=== PATIENT | female | born 1955 | race Caucasian/White ===

== ENCOUNTER 2022-03-15 09:50 | Outpatient (CLI) | payer BC, SELFPAY ==
--- NOTE | ~2022-03-15 | CT_ITS ---
EXAMINATION: CT lung screening DATE: 03/15/2022 10:08 INDICATION: Screening TECHNIQUE: Computed tomography (CT) of the chest was performed without intravenous contrast. Addition al 3D reconstructions utilizing coronal maximum intensity projection (MIP) were performed. Automated exposure control and iterative reconstruction technique were employed. The dose-length product was 71 .18 mGy-cm. COMPARISON: None FINDINGS: Mild emphysema. Mild discoid atelectasis in the lingula and right middle lobe. Mild bronchiectatic ch anges with some scattered mucous plugging the bilateral lower lobes. No suspicious pulmonary nodules, pneumonia, pulmonary edema or pleural effusion. Heart size is normal. Atherosclerotic and/or artery calcification. No pericardial effusion. Atherosclerotic calcific changes along the normal caliber tho racic aorta. No pathologically enlarged thoracic lymphadenopathy. 3 mm retrolisthesis L1 on L2 with s evere associated disc height loss . Moderate lower cervical spondylosis and mild spondylosis in the i ntervening thoracic spine. IMPRESSION: 1. Lung-RADS category 1: Negative. Continue annual screening with noncontrast low-dose chest CT in 12 months. Reviewed, dictated and finalized at location A. IMPRESSION: 1. Lung-RADS category 1: Negative. Continue annual screening with noncontrast l ow-dose chest CT in 12 months.
== END 2022-03-15 09:51 | disposition home or self-care (01) ==
PROVIDERS: PCP Family Medicine; Visit Provider Physician Assistant
DX: Z12.2 Encounter for screening for malignant neoplasm of respiratory organs (principal); Z87.891 Personal history of nicotine dependence
CPT/HCPCS: 71271

== ENCOUNTER 2022-10-18 09:39 | Outpatient (CLI) | payer BC, SELFPAY ==
--- NOTE | ~2022-10-18 | XR_ITS ---
Clinical Indication: Chest heaviness, status post Covid infection PA and lateral views of the chest: Comparison: 04/20/2016 Findings: The lungs are clear, without evidence of focal consolidation or pleural effusion. Possible COPD. Cardiomediastinal silhouette is within normal limits. Bones and soft tissues are unremarkable. Impression: Possible COPD pattern. Clear lungs. Reviewed, dictated and finalized at location . PLATFORM SUPERVISOR Impression: Possible COPD pattern. Clear lungs.
== END 2022-10-18 09:40 | disposition home or self-care (01) ==
PROVIDERS: PCP Family Medicine; Visit Provider Physician Assistant Medical
DX: J22 Unspecified acute lower respiratory infection (principal); R91.8 Other nonspecific abnormal finding of lung field
CPT/HCPCS: 71046

== ENCOUNTER 2022-10-22 14:31 | Outpatient (CLI) | payer BC, SELFPAY ==
[2022-10-22 14:48] LABS: Basophils Percent Auto 0.4 % (0.2-1.2); Hematocrit 52.4 % (37.0-47.0); Immature Granulocyte Absolute 0.03 K/mm3 (0.00-0.031); Immature Granulocyte Percent A 0.4 % (0-0.5); Lymphocytes Absolute Auto 0.85 K/mm3 (0.9-3.2); Mean Corpuscular HGB Conc 32.4 g/dl (32-36); Mean Corpuscular Hemoglobin 30.4 pg (26-34); Mean Corpuscular Volume 93.6 fl (80-100); Mean Platelet Volume 9.9 fl (7.4-10.4); Monocytes Absolute Auto 0.2 K/mm3 (0.1-0.6); Monocytes Percent Auto 1.8 % (2.6-8.5); Neutrophils Absolute Auto 7.4 K/mm3 (1.3-6.7); Neutrophils Percent Auto 87.4 % (45.5-73.1); Platelet Count Result 280 k/mm3 (150-375); Red Cell Distribution Width 13.7 % (11.5-14.5); White Blood Count 8.5 K/mm3 (4.5-10.0)
[2022-10-22 14:56] LABS: Anion Gap 5 mmol/L (8-16); Blood Urea Nitrogen 10 mg/dL (7-17); Calcium 9.5 mg/dL (8.4-10.2); Carbon Dioxide 39 mmol/L (22-30); Chloride 89 mmol/L (98-107); Estimated Glomerular Filt Rate > 60; Glucose 128 mg/dL (65-110); Potassium 4.4 mmol/L (3.4-5.0); Sodium 133 mmol/L (137-145)
[2022-10-22 15:10] LABS: D Dimer < 0.27 ug/mL (<0.48)
== END 2022-10-22 14:32 | disposition home or self-care (01) ==
LOC: ANHLAB 14:32
PROVIDERS: PCP Family Medicine; Visit Provider Family Medicine
DX: R53.83 Other fatigue (principal); R09.02 Hypoxemia
CPT/HCPCS: 36415; 80048; 85025; 85380

== ENCOUNTER 2023-03-18 10:23 | Outpatient (CLI) | payer BC, SELFPAY ==
--- NOTE | ~2023-03-18 | CT_ITS ---
CT Scan of the Chest without Contrast: Clinical Indication: Lung cancer screening, smoking history Technique: Contiguous sections were acquired throughout the chest without intravenous contrast. Dose reduction technique was used on this scan by utilizing automated exposure control and iterative recon struction technique. The dose-length product (DLP) was 66.99 mGy-cm. COMPARISON: 03/15/2022 Findings: There is no evidence of any significant mediastinal, hilar or axillary lymphadenopathy. Atherosclerot ic calcifications of the aorta and coronary arteries are present. There is no evidence of pleural or pericardial effusion. The lungs are clear. No pulmonary nodules or infiltrates are noted. Mild emphysema present. Images through the upper abdomen reveal stable small hepatic cysts and stable prominent appearance of left adrenal gland. Impression: Lung RADS 1: Negative. 12 month follow-up CT advised. Mild emphysema. Reviewed, dictated and finalized at [facility]. Impression: Lung RADS 1: Negative. 12 month follow-up CT advised. Mild emphysema.
== END 2023-03-18 10:24 | disposition home or self-care (01) ==
PROVIDERS: PCP Family Medicine; Visit Provider Physician Assistant Medical
DX: Z12.2 Encounter for screening for malignant neoplasm of respiratory organs (principal); Z72.0 Tobacco use
CPT/HCPCS: 71271

== ENCOUNTER 2023-11-05 14:20 | Outpatient (CLI) | payer MEDICARE, OTHER, SELFPAY ==
--- NOTE | ~2023-11-05 | MM_ITS ---
EXAMINATION: MM screening aurea BI w rayshawn HISTORY: Screening mammogram TECHNIQUE: Craniocaudal and mediolateral oblique 3-D tomosynthesis images were obtained and synthetic 2-D images were generated. CAD analysis was submitted and interpreted. COMPARISON: 07/08/2018 diagnostic right mammogram and limited right breast ultrasound examination 06/30/2018 bilateral screening mammogram BREAST PARENCHYMAL COMPOSITION: There are scattered areas of fibroglandular density. FINDINGS: There is no evidence of suspicious mass, calcification, or architectural distortion to sugg est malignancy in either breast. There has been no suspicious interval change. IMPRESSION: 1. No mammographic evidence of malignancy. 2. Recommend routine screening mammography in one year. BI-RADS Category 1: Negative Reviewed, dictated and finalized at location A. RAM CONSULTANT
--- NOTE | ~2023-11-05 | DEXA_ITS ---
Bone Density Report Name: MARY SEVILLA Age: 68 Sex: Female Ethnicity: White Date of : 1955 Indication: postmenopausal; screening for osteoporosis; height loss; asthma or emphysema; Referring Provider: LAURIE LEMON Study: Bone densitometry was performed. Exam Date: November 05, 2023 Accession number: [id number] Bone Density: Region BMD T-score Z-score Classification AP Spine(L2, L3, L4) 1.132 0.5 2.7 Normal Femoral Neck (Left) 0.710 -1.3 0.6 Osteopenia Total Hip (Left) 0.788 -1.3 0.3 Osteopenia Femoral Neck (Right) 0.758 -0.8 1.0 Normal Total Hip (Right) 0.831 -0.9 0.6 Normal Total Hip Mean 0.810 -1.1 0.5 Osteopenia World Health Organization criteria for BMD impression classify patients as: Normal (T-score at or above -1.0), Osteopenia (T-score between -1.0 and -2.5), or Osteoporosis (T-score at or below -2.5). 10-year Fracture Risk(1): Major Osteoporotic Fracture 9.3% Hip Fracture 1.8% Reported Risk Factors: [place] (), Neck BMD=0.710, BMI=28.2, smoking (1) FRAX(R) Version 3.08. Fracture probability calculated for an untreated patient. Fracture probability may be lower if the patient has received treatment. Clinical Information Provided by Patient: Smokes Has the following medical conditions: Asthma or Emphysema Patient maximum height was 67 Menopause Age: 43 No regular weight bearing exercise Does not regularly consume dairy products Drinks caffeinated beverages Onset of menses at age 9 Number of children 4 Impression: The patient has low bone mass, based on the Left Total Hip T-score. The patient has an estimated ten-year risk of hip fracture of 1.8% and an estimated ten-year risk of major fracture of 9.3%, based on the WHO FRAX algorithm. The patient has risk factors, including: smoking. Discussion: BONE DENSITY IS LOW AT ONE OR MORE SKELETAL SITES. This patient's lowest T-score is low at one or more skeletal sites. It meets the World Health Organization's (WHO) criteria for ?low bone mass? (T-score between -1.0 and -2.5). The patient's 10-year risk of fracture as calculated by FRAX is less than the threshold where pharmacological therapy is recommended by the National Osteoporosis Foundation (NOF). However, all treatment decisions require clinical judgment and consideration of individual patient factors, including patient preferences, comorbidities, previous drug use, risk factors not captured in the FRAX model (e.g., frailty, falls, vitamin D deficiency, increased bone turnover, interval significant decline in bone density) and possible under or overestimation of fracture risk by FRAX. The patient should follow a healthful lifestyle (good nutrition with adequate calcium and vitamin D, and appropriate weight-bearing exercise). Follow-Up: Consid
== END 2023-11-05 14:21 | disposition home or self-care (01) ==
LOC: ANHIMG 14:24
PROVIDERS: PCP Family Medicine; Visit Provider Physician Assistant
DX: Z12.31 Encounter for screening mammogram for malignant neoplasm of breast (principal); Z78.0 Asymptomatic menopausal state; M85.852 Other specified disorders of bone density and structure, left thigh
CPT/HCPCS: 77063; 77067; 77080

== ENCOUNTER 2023-11-06 14:58 | Outpatient (CLI) | payer MEDICARE, OTHER, SELFPAY ==
--- NOTE | ~2023-11-06 | XR_ITS ---
EXAMINATION: XR chest 2V DATE: 11/06/2023 15:16 INDICATION: Shortness of breath. Cough. TECHNIQUE: Frontal and lateral views of the chest were obtained. COMPARISON: Chest 2 views 10/18/2022, chest CT 03/18/2023 FINDINGS: There is no pneumonia, pleural effusion, or pneumothorax. The heart size is normal. IMPRESSION: 1. No acute cardiopulmonary disease. Reviewed, dictated and finalized at location E. DING OPERATOR
--- NOTE | 2023-11-06 15:33 | ECG_ITS ---
Measurements Intervals [place] Rate: 93 P: 74 VT: 196 QRS: 107 QRSD: 90 T: 60 QT: 323 QTc: 403 Interpretive Statements SINUS RHYTHM WITH OCCASIONAL ECTOPIC PREMATURE COMPLEXES POSSIBLE RIGHT ATRIAL ENLARGEMENT [0.25mV P WAVE] LEFT ATRIAL ENLARGEMENT [-0.15mV P WAVE IN V1/V2] POSSIBLE RIGHT VENTRICULAR HYPERTROPHY [SOME/ALL OF: PROMINENT R IN V1, LATE TRANSITION, RAD, [place], SSS] POOR R-WAVE PROGRESSION, CANNOT RULE OUT OLD SEPTAL PA NO PREVIOUS ECG AVAILABLE FOR COMPARISON Electronically Signed On 11-06-2023 19:04:00 MEMBER SERVICE SPECIALIST by Matilde Valverde M.D.
[2023-11-06 15:43] LABS: Hematocrit 51.2 % (37.0-47.0); Hemoglobin 16.9 g/dL (12.0-15.0); Mean Corpuscular Hemoglobin 28.8 pg (26-34); Mean Corpuscular Volume 87.4 fl (80-100); Platelet Count Result 212 k/mm3 (150-375); Red Blood Count 5.86 M/mm3 (4.2-5.4); Red Cell Distribution Width 13.6 % (11.5-14.5); White Blood Count 7.8 K/mm3 (4.5-10.0)
[2023-11-06 15:54] LABS: Alanine Aminotransferase 26 U/L (6-35); Albumin Level 4.3 g/dL (3.5-5.1); Alkaline Phosphatase 86 U/L (38-126); Aspartate Amino Transferase 36 U/L (14-36); Bilirubin,Total 0.8 mg/dL (0.2-1.3); Blood Urea Nitrogen 9 mg/dL (7-17); Calcium 9.6 mg/dL (8.4-10.2); Carbon Dioxide > 40 mmol/L (22-30); Chloride 80 mmol/L (98-107); Estimated Glomerular Filt Rate > 60; Glucose 97 mg/dL (65-110); Potassium 3.6 mmol/L (3.4-5.0); Sodium 123 mmol/L (137-145)
[2023-11-06 17:19] LABS: Free T4 Free Thyroxine 1.55 ng/mL (0.78-2.19)
== END 2023-11-06 14:59 | disposition home or self-care (01) ==
LOC: ANHIMG 14:59
PROVIDERS: PCP Family Medicine; Visit Provider Physician Assistant
DX: R53.83 Other fatigue (principal); D64.9 Anemia, unspecified; Z13.1 Encounter for screening for diabetes mellitus; R06.02 Shortness of breath; R60.9 Edema, unspecified
CPT/HCPCS: 36415; 71046; 80053; 84439; 84443; 85027; 93005

== ENCOUNTER 2023-11-22 14:44 | Inpatient (IN) | payer MEDICARE, OTHER, SELFPAY ==
[2023-11-22] VITALS (40 sets, daily range): BP systolic 161–188; BP diastolic 76–96; PULSE 87–109; RESP 13–33; TEMP 36.4; O2SAT 54–100
--- NOTE | ~2023-11-22 | CT_ITS ---
EXAMINATION: CTA chest PE protocol DATE: 11/22/2023 17:46 INDICATION: Shortness of breath. TECHNIQUE: Computed tomography angiography (CTA) of the chest was performed with 100 mL Omnipaque-350 intravenous contrast timed to evaluate the pulmonary arteries. Coronal maximum intensity projection 3D-reconstructions were created by the technologist. Automated exposure control and iterative reconst ruction technique were employed. The dose-length product was 189.81 mGy-cm. COMPARISON: Chest CT 03/18/2023 FINDINGS: There is mild emphysema. There is a 3 mm nodule at left major fissure, likely benign. There is mild scarring at the lung apices. There is mild atelectasis bilaterally. No pleural effusion. Car diomegaly is noted. No pericardial effusion. There are coronary artery calcifications. There is a sma ll sliding hiatal hernia. There are cysts in the liver measuring up to 11 mm. There is no pulmonary e mbolus. There is a supraumbilical ventral hernia containing fat. There is mild thoracic spondylosis a nd severe lumbar spondylosis. IMPRESSION: 1. No pulmonary embolus. 2. Mild emphysema. 3. Small sliding hiatal hernia. Reviewed, dictated and finalized at location E. US ADMINISTRATIVE ASSISTANT
--- NOTE | ~2023-11-22 | XR_ITS ---
EXAMINATION: XR chest 1V portable DATE: 11/22/2023 15:29 INDICATION: Ingested heart failure TECHNIQUE: frontal view of the chest was obtained. COMPARISON: Chest radiograph dated 11/06/2023 FINDINGS: Subtle increased interstitial pattern at the periphery of the lower lung zones consistent with minima l pulmonary edema or atelectasis. No other airspace opacities, pleural effusion or pneumothorax. Printing Sales Representative marsha mild lingular atelectasis/scarring near the apex of the heart. Heart size remains within normal l imits for AP technique. Severe left and moderate right glenohumeral osteoarthritis. IMPRESSION: 1. Minimal pulmonary edema versus atelectasis at the bilateral lung bases. Reviewed, dictated and finalized at location A. OPRACTIC PRACTICE MANAGER
--- NOTE | ~2023-11-22 | XR_ITS ---
XR chest 1V portable 11/24/2023 11:37 Indication: COPD. Respiratory failure Procedure: AP portable chest Comparison: 11/22/2023 Findings: Borderline heart size. Bilateral perihilar interstitial infiltrates. No significant effusio n. No pneumothorax. Advanced degenerative changes of the shoulders. Impression: 1: Bilateral perihilar interstitial infiltrates may represent edema or pneumonia. Reviewed, dictated and finalized at location A. ONAL SALES ASSOCIATE Impression: 1: Bilateral perihilar interstitial infiltrates may represent edema or pneumoni a.
--- NOTE | 2023-11-22 14:52 | PC.NURSE ---
Pt has PMH of COPD and does not wear home O2. Pt arrives 75% on room air and placed on 2 L NC O2, pulse OX 93%
--- NOTE | 2023-11-22 14:54 | ECG_ITS ---
Measurements Intervals [place] Rate: 86 P: 64 IN: 195 QRS: 151 QRSD: 82 T: 57 QT: 343 QTc: 412 Interpretive Statements SINUS RHYTHM LEFT ATRIAL ENLARGEMENT [-0.15mV P WAVE IN V1/V2] POSSIBLE RIGHT VENTRICULAR HYPERTROPHY [SOME/ALL OF: PROMINENT R IN V1, LATE TRANSITION, RAD, [place], SSS] ANTEROSEPTAL MYOCARDIAL INFARCTION , OF INDETERMINATE AGE [40+ ms Q WAVE IN V1-V4] ABNORMAL ECG COMPARED TO ECG 11/06/2023 15:42:48 MYOCARDIAL INFARCT FINDING NOW PRESENT Electronically Signed On 11-23-2023 14:35:02 TIRE VULCANIZER by Santana Carpenter M.D.
[2023-11-22 15:11] LABS: Basophils Absolute Auto 0.1 K/mm3 (0.0-0.1); Basophils Percent Auto 0.7 % (0.2-1.2); Eosinophils Absolute Auto 0.3 K/mm3 (0-0.3); Eosinophils Percent Auto 4.1 % (0-4.4); Hematocrit 50.3 % (37.0-47.0); Hemoglobin 15.9 g/dL (12.0-15.0); Immature Granulocyte Absolute 0.02 K/mm3 (0.00-0.031); Immature Granulocyte Percent A 0.3 % (0-0.5); Lymphocytes Absolute Auto 1.43 K/mm3 (0.9-3.2); Lymphocytes Percent Auto 18.9 % (18.3-44.2); Mean Corpuscular HGB Conc 31.6 g/dl (32-36); Mean Corpuscular Hemoglobin 27.6 pg (26-34); Mean Corpuscular Volume 87.2 fl (80-100); Mean Platelet Volume 9.7 fl (7.4-10.4); Monocytes Absolute Auto 0.8 K/mm3 (0.1-0.6); Platelet Count Result 216 k/mm3 (150-375); Red Blood Count 5.77 M/mm3 (4.2-5.4); Red Cell Distribution Width 15.5 % (11.5-14.5); White Blood Count 7.6 K/mm3 (4.5-10.0)
[2023-11-22 15:18] LABS: Prothrombin Time 13.4 Seconds (11.1-14.7)
[2023-11-22 15:19] LABS: Partial Thromboplastin Time 27.2 SECONDS (22.3-36.8)
[2023-11-22 15:22] LABS: Alanine Aminotransferase 23 U/L (6-35); Albumin Level 4.1 g/dL (3.5-5.1); Alkaline Phosphatase 85 U/L (38-126); Anion Gap 3 mmol/L (8-16); Aspartate Amino Transferase 40 U/L (14-36); Bilirubin,Total 0.9 mg/dL (0.2-1.3); Blood Urea Nitrogen 7 mg/dL (7-17); Calcium 9.5 mg/dL (8.4-10.2); Carbon Dioxide 39 mmol/L (22-30); Chloride 87 mmol/L (98-107); Estimated CRCL calculation 80 ml/min; Estimated Glomerular Filt Rate > 60; Glucose 99 mg/dL (65-110); Potassium 3.6 mmol/L (3.4-5.0); Sodium 129 mmol/L (137-145)
[2023-11-22 15:34] LABS: NT Pro B Type Natriuretic Pept 371 pg/mL (19.9-100); Troponin I < 0.012 ng/mL (0.000-0.034)
[2023-11-22 15:46] LABS: Influenza A QL RT-PCR Negative (Negative); Influenza B QL RT-PCR Negative (Negative); RSV RNA, RT-PCR Negative (Negative); SARS-CoV-2 RNA PCR Negative (Negative)
--- NOTE | 2023-11-22 16:55 | PC.NURSE ---
Pt was taken off of her O2 to be wheeled to the restroom via wheelchair (reported to RN that she is normally only 88-94% on RA at home with COPD). Pt was only standing to get in and out of wheelchair, did not walk. When patient got back in bed and was reconnected to the monitor, SpO2 was 54% with good pleth. Supplemental oxygen temporarily increased to 4L NC. Pt had increased respiratory rate of 26/min, however did not appear labored and was looking for her chapstick seemingly unconcerned about her breathing. Pt instructed to take deep breaths through her nose (NC) and SpO2 gradually increased back up to 95%. Pt was able to speak full sentences during incident. Pt reports her SpO2 has been dropping significantly at home, and that she always gets very winded when she climbs into bed, and also has been falling asleep while talking lately. States that's why my doctor was setting me up with a steel layout worker . made aware.
--- NOTE | 2023-11-22 18:02 | ED.SOB ---
HPI - SOB/Dyspnea General Chief Complaint: Shortness of Breath/Dyspnea Stated Complaint: sob Time Seen by Provider: 11/22/23 15:09 History of Present Illness HPI Narrative: Patient is a 68-year-old female with a history of COPD, hypertension, hyperlipidemia presenting with hypoxia. Patient states that for the last several weeks she has been increasingly short of breath. States that she has a pulse ox at home and she has been checking it randomly. States that her saturations have been dropping to the 70s. She went to see her PCP today who advised that she come in for evaluation as she was saturating 76% on room air. States that she does have mild bilateral lower extremity swelling that is new for her. She denies any chest pain or lightheadedness. Reports a chronic unchanged cough. No fevers or chills, abdominal pain, nausea vomiting, dysuria, diarrhea. States that she is down to about 10 cigarettes per day. Related Data Home Medications Medication Instructions Recorded Confirmed amlodipine 2.5 mg tablet 2.5 mg PO QHS 11/22/23 11/22/23 atorvastatin 10 mg tablet 10 mg PO QHS 11/22/23 11/22/23 fluticasone 500 mcg-salmeterol 50 1 inh inhalation BID 11/22/23 11/22/23 mcg/dose blistr powdr for inhalation (Advair Diskus) guaifenesin 600 mg tablet, 600 mg PO BID 11/22/23 11/22/23 extended release 12 hr (Mucinex) hydrochlorothiazide 25 mg tablet 25 mg PO QAM 11/22/23 11/22/23 losartan 100 mg tablet 100 mg PO QHS 11/22/23 11/22/23 montelukast 10 mg tablet 10 mg PO QAM 11/22/23 11/22/23 naproxen sodium 220 mg tablet 220 mg PO BID PRN Pain 11/22/23 11/22/23 potassium chloride 10 mEq 10 meq PO QAM 11/22/23 11/22/23 capsule,extended release ropinirole 0.25 mg tablet 0.25 mg PO QHS 11/22/23 11/22/23 Allergies Allergy/AdvReac Type Severity Reaction Status Date / Time ciprofloxacin Allergy Mild NAUSEA Verified 11/22/23 14:01 Review of Systems Review of Systems: All systems reviewed & are unremarkable except as noted in HPI and below PMFSH Past Medical History Medical History Allergic rhinitis Chronic obstructive pulmonary disease DDD (degenerative disc disease), cervical Depression Essential hypertension Mixed hyperlipidemia Normal colonoscopy Osteopenia Tobacco abuse Vitamin B12 deficiency Vitamin D deficiency Surgical History Surgical History History of bladder surgery History of dilatation and curettage Family History Family History Other Family history of coronary artery disease Social History Social History Smoking packs per day: 0.5 Smoking cigarettes per day: 10.0 Years smoked: 50 Smoking pack-years: 25.00 Smoking status: Current every day smoker Tobacco type: cigarettes Second hand tobacco smoke exposure: No Alcohol intake: never Substance use: never Substance use type: does not use Do You Feel Safe in your Home?: Yes Lack of Transportation: No Lack of Food: Never True Current Housing: I Have Housing Concerned About Future Housing: No Difficulty Paying Gas/Electric Bills: No Difficulty Paying for Meds: No Currently Unemployed: No Education: Master's Degree or Higher Difficulty w/ Childcare or Family Care: No Living arrangements: with family Occupation/Education: occupation 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 EYES: PERRLA and EOMI. ENT: Grossly unremarkable NECK: Supple. CHEST: On 4 L nasal cannula, diminished breath sounds bilaterally, do not appreciate any wheezing or crackles, no respiratory distress. HEART: Regular rate and rhythm ABDOMEN:
[2023-11-22 18:44] LABS: Base Excess ABG 9.1 mEq/l (+/-2.0); Carboxyhemoglobin 9.1 % THb (0-2.0); Fractional Inspired Oxygen 28 %; Methemoglobin ABG 0.3 %THb (0-1.5); Oxygen Content ABG 18.7 %vol (16.0-22.0); Oxygen Saturation ABG 87.9 % (95.0-100.0); PO2 ABG 60.3 mmHg (80.0-100.0); PO2 FiO2 Ratio Arterial Blood 2.15 %; Reduced Hemoglobin 8.4 %THb (0-5.0); Total Hemoglobin 16.2 g/dL (12.0-18.0)
[2023-11-22] MEDS: ALBUTEROL SULFATE NEB 2.5 MG/3 ML INH 10 MG INHALATION (18:48)
[2023-11-22] MEDS: IPRATROPIUM BR 0.02% INH SOLN 0.5 MG/2.5 ML VIAL INHALATION ×2 (18:48→20:45)
--- NOTE | 2023-11-22 19:00 | PC.NURSE ---
Bedside RN report given by Radha Martínez RN. Pt a+o x 4, no distress noted. Pt has no current needs.
[2023-11-22] MEDS: methylPREDNISolone SOD SUCC 125 MG VIAL IV PUSH (19:04)
[2023-11-22] MEDS: SODIUM CHLORIDE 0.9% IV 1,000 ML 999 ML IV CONT (19:04)
[2023-11-22 19:10] LABS: PCO2 ABG 77.4 mmHg (35.0-45.0)
[2023-11-22 19:11] LABS: Device NASAL CANNULA; Oxyhemoglobin 82.2 % THb (90.0-100.0); Site Drawn RIGHT RADIAL
[2023-11-22 20:03] LABS: Troponin I < 0.012 ng/mL (0.000-0.034)
--- NOTE | 2023-11-22 20:34 | PM.IMHP ---
H&P: HPI History of Present Illness Date/Time: 11/22/23 20:34 Chief Complaint: SOB Narrative: A 68-year-old female with past medical history significant for COPD/asthma, hypertension, generalized anxiety disorder. Patient presents to the emergency room due to worsening shortness of breath for the last few days or so has been a spot checking oxygen at home and he has been in the 70's made an appointment to go see her primary care physician and on room air she was found to have an oxygen saturation at 76% was sent over to the emergency room for further evaluation. Here in emergency room was found to have an oxygen saturation in the 70s% as well she was placed on supplemental oxygen by nasal cannula 4 L, was ruled out for acute pulmonary embolism with a negative CT angiogram of the chest. Admitted for further evaluation management and treatment. EXAMINATION: XR chest 1V portable DATE: 11/22/2023 15:29 INDICATION: Ingested heart failure TECHNIQUE: frontal view of the chest was obtained. COMPARISON: Chest radiograph dated 11/06/2023 FINDINGS: Subtle increased interstitial pattern at the periphery of the lower lung zones consistent with minimal pulmonary edema or atelectasis. No other airspace opacities, pleural effusion or pneumothorax. Chronic mild lingular atelectasis/scarring near the apex of the heart. Heart size remains within normal limits for AP technique. Severe left and moderate right glenohumeral osteoarthritis. IMPRESSION: 1. Minimal pulmonary edema versus atelectasis at the bilateral lung bases. EXAMINATION: CTA chest PE protocol DATE: 11/22/2023 17:46 INDICATION: Shortness of breath. TECHNIQUE: Computed tomography angiography (CTA) of the chest was performed with 100 mL Omnipaque-350 intravenous contrast timed to evaluate the pulmonary arteries. Coronal maximum intensity projection 3D-reconstructions were created by the technologist. Automated exposure control and iterative reconstruction technique were employed. The dose-length product was 189.81 mGy-cm. COMPARISON: Chest CT 03/18/2023 FINDINGS: There is mild emphysema. There is a 3 mm nodule at left major fissure, likely benign. There is mild scarring at the lung apices. There is mild atelectasis bilaterally. No pleural effusion. Cardiomegaly is noted. No pericardial effusion. There are coronary artery calcifications. There is a small sliding hiatal hernia. There are cysts in the liver measuring up to 11 mm. There is no pulmonary embolus. There is a supraumbilical ventral hernia containing fat. There is mild thoracic spondylosis and severe lumbar spondylosis. IMPRESSION: 1. No pulmonary embolus. 2. Mild emphysema. 3. Small sliding hiatal hernia. Review of Systems Review of Systems: SOB, WHEEZING, PRODUCTIVE COUGH, FATIGUE All systems reviewed & are unremarkable except as noted in HPI and below PMFSH Past Medical History Medical History Allergic rhinitis Chronic obstructive pulmonary disease DDD (degenerative disc disease), cervical Depression Essential hypertension Mixed hyperlipidemia Normal colonoscopy Osteopenia Tobacco abuse Vitamin B12 deficiency Vitamin D deficiency Surgical History Surgical History History of bladder surgery History of dilatation and curettage Family History Family History Other Family history of coronary artery disease Social History Social History Smoking packs per day: 0.5 Smoking cigarettes per day: 10.0 Years smoked: 50 Smoking pack-years: 25.00 Smoking status: Current every day smoker Tobacco type: cigarettes Second hand tobacco smoke exposure: No Alcohol intake: never Substance use: never Substance use type: does not use Do You Feel Safe in your
[2023-11-22] MEDS: ALBUTEROL SULFATE NEB 2.5 MG/3 ML INH INHALATION (20:44)
--- NOTE | 2023-11-22 21:13 | PC.NURSE ---
at time of transfer pt does have ns infusing to gravity. erp aware .
--- NOTE | 2023-11-22 22:31 | ADMGEN ---
This patient, Clau Shepard, was admitted to Medical Room 341-01. Patient/family oriented to hospital policies and general routines including ID bracelet, bed and alarms, visiting hours, pain management, procedures, bathroom and other care routines, personal items, smoking policy, room service/diet, and visiting hours. Information on how to activate the Rapid Response Team has been discussed. Patient/Family are encouraged to report perceived risks to care and to ask questions if they do not understand what they are told or what they should do.
[2023-11-22 23:32] LABS: Troponin I 0.023 ng/mL (0.000-0.034)
[2023-11-22] MEDS: methylPREDNISolone SOD SUCC 125 MG VIAL 60 MG IV PUSH (23:52)
[2023-11-23] VITALS (24 sets, daily range): BP systolic 131–145; BP diastolic 61–97; PULSE 72–116; RESP 16–32; TEMP 36.8–37.1; O2SAT 90–97; BMI 25.3
--- NOTE | 2023-11-23 | ECHO_ITS ---
Patient Info Name: Clau Shepard Age: 68 years : 1955 Gender: Female Ht: 65 in Wt: 152 lbs BSA: 1.79 m2 HR: 100 bpm BP: 140 / 70 mmHg Heart Rhythm: Sinus Rhythm, Tachycardia Technical Quality: Fair Exam Date: 11/23/2023 2:20 PM Exam Location: Echo Lab Exam Room: 200 Patient Status: Inpatient Admit Date: 11/22/2023 Staff Ordering Physician: Jenifer Gaytan APRN Kerrick Kleaner Operator: Kassy Ortega RDCS Attending Provider: Scarlett Cordova MD Referring Physician: Lucila DSOUZA; Exam Type: CA echo dop color flow w con Study Info Indications - hypoxia copd sob htn edema Complete two-dimensional, color flow and Doppler transthoracic echocardiogram is performed with contrast to opacify the left ventricle and to improve the deliniation of the left ventricle endocardial borders. Contrast/Agitated Saline Contrast/Ag. Saline: Definity Amount: 2.00 ml Administered By: Kassy Ortega [facility] Existing IV Access: Yes IV Access Condition: patent with no signs of infiltration Summary 1. Technically difficult study with limited views. Definity contrast administered. 2. Left ventricular chamber dimension is normal. 3. Left ventricular systolic function is hyperdynamic, estimated at >70%. 4. There is mildly increased left ventricular wall thickness. 5. The left ventricular diastolic function is grade I diastolic dysfunction. 6. Right atrial chamber dimension is moderately enlarged. 7. The aortic valve is trileaflet. 8. There is mild aortic valve calcification. There is a focal, fixed calcified echodensity measuring 0.5 x 0.5 cm seen in the long-axis view and short axis views which appears to be consistent with commissural calcification. While there is no clear mobile component less likely vegetation, unable to further characterize. Clinical correlation advised. May consider WEN if clinically indicated. 9. There is no aortic valve stenosis. 10. There is no aortic valve regurgitation. 11. There is trace mitral valve regurgitation. 12. The mitral valve annulus is moderately calcified. 13. There is trace tricuspid valve regurgitation. 14. Mild pulmonary hypertension, estimated pulmonary arterial systolic pressure is 43 mmHg. Left Ventricle Left ventricular chamber dimension is normal. Left ventricular systolic function is hyperdynamic, estimated at >70%. There is mildly increased left ventricular wall thickness. The left ventricular diastolic function is grade I diastolic dysfunction. Technically difficult study with limited views. Definity contrast administered. Right Ventricle Right ventricular chamber dimension is normal. Right ventricular systolic function is normal. Left Atria Left atrial chamber dimension is normal. Right Atria Right atrial chamber dimension is moderately enlarged. Aortic Valve The aortic valve is trileaflet. There is no aortic valve stenosis. There is no aortic valve regurgitation. There is mild aortic valve calcification. There is a focal, fixed calcified echodensity measuring 0.5 x 0.5 cm seen in the long-axis view and short axis views which appears to be consistent with commissural calcification. While there is no clear mobile component less likely vegetation, unable to further characterize. Clinical correlation advised. May consider WEN if clinically indicated. Pulmonic Valve The pulmonic valve is not well visualized. Mitral Valve The mitral valve has thickened leaflets. There is trace mitral valve regurgitation. The mitral valve annulus is moderately calcified. Tricuspid Valve The tric
[2023-11-23 02:04] LABS: Troponin I < 0.012 ng/mL (0.000-0.034)
[2023-11-23] MEDS: ALBUTEROL SULFATE NEB 2.5 MG/3 ML INH INHALATION ×2 (02:32→07:42)
[2023-11-23] MEDS: IPRATROPIUM BR 0.02% INH SOLN 0.5 MG/2.5 ML VIAL INHALATION ×2 (02:32→07:42)
[2023-11-23] MEDS: methylPREDNISolone SOD SUCC 125 MG VIAL 60 MG IV PUSH ×3 (06:23→21:51)
--- NOTE | 2023-11-23 07:27 | P.PNIM_ITS ---
Progress Note: A&P Assessment and Plan (1) Acute respiratory failure with hypoxia and hypercapnia: Code(s): J96.01 - Acute respiratory failure with hypoxia; J96.02 - Acute respiratory failure with hypercapnia Status: Acute Assessment and Plan: 11/23/2023: * Likely secondary to COPD exacerbation * Patient presented with an SpO2 of 73-75% on room air, respiratory rate was 26, ABG shown respiratory acidosis with a pCO2 of 77.4, PO2 of 60.3 on 2 L nasal cannula with an oxyhemoglobin of 82.2. * Currently 3.5 L nasal cannula * Repeat ABG this morning showing worsening acidosis with a pH of 7.298, pCO2 77.9, PO2 58.8, bicarb 37.3, O2 saturation 86.5 on 3.5 L. oxy hemoglobin 86.7. * Will start BiPAP 10/5 with a backup rate of 12 and 50%, she will need this continuously until her acidosis corrects * Will transfer to the IMU for continuous BiPAP * Wean O2 to keep sat greater than 92% * Chest x-ray showed minimal pulmonary edema versus atelectasis at the bilateral lung bases * CTA of the chest was negative for PE, showed mild emphysema and a small sliding hiatal hernia * Patient was given a DuoNeb, 1 L normal saline, and 125 mg IV push Solu-Medrol while in the ED * Continue DuoNebs * Continue Solu-Medrol 60 mg IV push change to q.8 hours * Continue Mucinex and singular * Continue cardiac monitoring * Respiratory panel negative for influenza a and B, RSV, and COVID * White blood cell count 7.6, proBNP was 371, troponin x4 flat * Patient has 1+ pitting bilateral lower extremity edema, will obtain an echo today as she has not had 1 in our system to review. * Will obtain echocardiogram today (2) Chronic obstructive pulmonary disease: Qualifiers: COPD type: unspecified COPD Qualified Code(s): J44.9 - Chronic obstructive pulmonary disease, unspecified Code(s): J44.9 - Chronic obstructive pulmonary disease, unspecified Status: Acute Assessment and Plan: * COPD exacerbation * Does not use home oxygen, CPAP or BiPAP * Has reported confusion and fatigue home along with shortness of breath * Normally on Advair and albuterol inhalers at home, she also has a nebulizer with neb treatments as needed * She continues on Singulair and guaifenesin at home as well * See above plan of care for additional workup (3) Essential hypertension: Code(s): I10 - Essential (primary) hypertension Status: Acute Assessment and Plan: 11/23/2023: * Blood pressure ranging 131/61 to 145/70 * Amlodipine, losartan and hydrochlorothiazide continued (4) Mixed hyperlipidemia: Code(s): E78.2 - Mixed hyperlipidemia Status: Acute Assessment and Plan: 11/23/2023: * Continue atorvastatin (5) Depression: Qualifiers: Active/Remission status: currently active Depression Type: major depressive disorder Major depression episode severity: mild Major depression recurrence: single episode Qualified Code(s): F32.0 - Major depressive disorder, single episode, mild Code(s): F32.9 - Major depressive disorder, single episode, unspecified Status: Acute Assessment and Plan: 11/23/2023: * Continue Wellbutrin (6) Restless legs: Code(s): G25.81 - Restless legs syndrome Status: Acute Assessment and Plan: 11/23/2023: * Continue Requip (7) Tobacco abuse: Code(s): Z72.0 - Tobacco use Status: Acute Assessment and Plan: 11/23/2023: * Current everyday smoker, half ppd 50 years * Patient states that she has been trying to cut back on her smoking * Nicotine patch ordered p.r.n. Time
--- NOTE | 2023-11-23 07:27 | PM.IMPN ---
Progress Note: A&P Assessment and Plan (1) Acute respiratory failure with hypoxia and hypercapnia: Code(s): J96.01 - Acute respiratory failure with hypoxia; J96.02 - Acute respiratory failure with hypercapnia Status: Acute Assessment and Plan: 11/23/2023: Likely secondary to COPD exacerbation Patient presented with an SpO2 of 73-75% on room air, respiratory rate was 26, ABG shown respiratory acidosis with a pCO2 of 77.4, PO2 of 60.3 on 2 L nasal cannula with an oxyhemoglobin of 82.2. Currently 3.5 L nasal cannula Repeat ABG this morning showing worsening acidosis with a pH of 7.298, pCO2 77.9, PO2 58.8, bicarb 37.3, O2 saturation 86.5 on 3.5 L. oxy hemoglobin 86.7. Will start BiPAP 10/5 with a backup rate of 12 and 50%, she will need this continuously until her acidosis corrects Will transfer to the IMU for continuous BiPAP Wean O2 to keep sat greater than 92% Chest x-ray showed minimal pulmonary edema versus atelectasis at the bilateral lung bases CTA of the chest was negative for PE, showed mild emphysema and a small sliding hiatal hernia Patient was given a DuoNeb, 1 L normal saline, and 125 mg IV push Solu-Medrol while in the ED Continue DuoNebs Continue Solu-Medrol 60 mg IV push change to q.8 hours Continue Mucinex and singular Continue cardiac monitoring Respiratory panel negative for influenza a and B, RSV, and COVID White blood cell count 7.6, proBNP was 371, troponin x4 flat Patient has 1+ pitting bilateral lower extremity edema, will obtain an echo today as she has not had 1 in our system to review. Will obtain echocardiogram today (2) Chronic obstructive pulmonary disease: Qualifiers: COPD type: unspecified COPD Qualified Code(s): J44.9 - Chronic obstructive pulmonary disease, unspecified Code(s): J44.9 - Chronic obstructive pulmonary disease, unspecified Status: Acute Assessment and Plan: COPD exacerbation Does not use home oxygen, CPAP or BiPAP Has reported confusion and fatigue home along with shortness of breath Normally on Advair and albuterol inhalers at home, she also has a nebulizer with neb treatments as needed She continues on Singulair and guaifenesin at home as well See above plan of care for additional workup (3) Essential hypertension: Code(s): I10 - Essential (primary) hypertension Status: Acute Assessment and Plan: 11/23/2023: Blood pressure ranging 131/61 to 145/70 Amlodipine, losartan and hydrochlorothiazide continued (4) Mixed hyperlipidemia: Code(s): E78.2 - Mixed hyperlipidemia Status: Acute Assessment and Plan: 11/23/2023: Continue atorvastatin (5) Depression: Qualifiers: Active/Remission status: currently active Depression Type: major depressive disorder Major depression episode severity: mild Major depression recurrence: single episode Qualified Code(s): F32.0 - Major depressive disorder, single episode, mild Code(s): F32.9 - Major depressive disorder, single episode, unspecified Status: Acute Assessment and Plan: 11/23/2023: Continue Wellbutrin (6) Restless legs: Code(s): G25.81 - Restless legs syndrome Status: Acute Assessment and Plan: 11/23/2023: Continue Requip (7) Tobacco abuse: Code(s): Z72.0 - Tobacco use Status: Acute Assessment and Plan: 11/23/2023: Current everyday smoker, half ppd 50 years Patient states that she has been trying to cut back on her smoking Nicotine patch ordered p.r.n. Time Spent With Patient Time with patient: Greater than 35 minutes Subjective Date/time seen: 11/23/23 07:27 Interval history: This is a 68-year-old female with a significant past medical history of COPD, depression, hypertension, hyperlipidemia, osteopenia, vitamin B12 deficiency, vitamin-D deficiency, half pack per day smoker times 50 years who presented to hospital on 11/22/2023 with complaints of jason
[2023-11-23 08:02] LABS: Hematocrit 52.1 % (37.0-47.0); Hemoglobin 15.7 g/dL (12.0-15.0); Immature Granulocyte Absolute 0.01 K/mm3 (0.00-0.031); Immature Granulocyte Percent A 0.2 % (0-0.5); Lymphocytes Absolute Auto 0.21 K/mm3 (0.9-3.2); Mean Corpuscular HGB Conc 30.1 g/dl (32-36); Mean Corpuscular Hemoglobin 27.1 pg (26-34); Mean Platelet Volume 9.5 fl (7.4-10.4); Neutrophils Absolute Auto 3.9 K/mm3 (1.3-6.7); Neutrophils Percent Auto 93.8 % (45.5-73.1); Platelet Count Result 191 k/mm3 (150-375); Red Blood Count 5.79 M/mm3 (4.2-5.4); Red Cell Distribution Width 15.1 % (11.5-14.5); White Blood Count 4.2 K/mm3 (4.5-10.0)
[2023-11-23 08:16] LABS: Alanine Aminotransferase 25 U/L (6-35); Albumin Level 3.9 g/dL (3.5-5.1); Alkaline Phosphatase 80 U/L (38-126); Anion Gap 6 mmol/L (8-16); Aspartate Amino Transferase 26 U/L (14-36); Bilirubin,Total 0.6 mg/dL (0.2-1.3); Blood Urea Nitrogen 8 mg/dL (7-17); Calcium 9.2 mg/dL (8.4-10.2); Carbon Dioxide 37 mmol/L (22-30); Chloride 88 mmol/L (98-107); Estimated CRCL calculation 79 ml/min; Estimated Glomerular Filt Rate > 60; Glucose 189 mg/dL (65-110); Sodium 131 mmol/L (137-145)
[2023-11-23 09:05] LABS: Alveolar/Arterial O2 Gradient 92.9 mmHg; Base Excess ABG 7.3 mEq/l (+/-2.0); Fractional Inspired Oxygen 34 %; HCO3 ABG 37.3 mEq/l (22.0-26.0); Oxygen Content ABG 19.5 %vol (16.0-22.0); PO2 ABG 58.8 mmHg (80.0-100.0); PO2 FiO2 Ratio Arterial Blood 1.73 %
[2023-11-23] MEDS: NICOTINE (*PBKC) 21 MG PATCH 1 PATCH TRANSDERM (09:09)
[2023-11-23] MEDS: buPROPion HCL XL (24 HR) 150 MG TABCR PO (09:10)
[2023-11-23] MEDS: MONTELUKAST SODIUM 10 MG TABLET PO (09:10)
[2023-11-23] MEDS: POTASSIUM CHLORIDE 10 MEQ ER TABLET PO (09:10)
[2023-11-23 09:11] LABS: pH ABG 7.298 (7.350-7.450)
[2023-11-23 09:12] LABS: PCO2 ABG 77.9 mmHg (35.0-45.0)
[2023-11-23 09:13] LABS: Oxygen Saturation ABG 86.5 % (95.0-100.0)
[2023-11-23 09:15] LABS: Device NASAL CANNULA; Liters per Minute 3.5 LPM; Modified Allen's Test Pass; Oxyhemoglobin 86.7 % THb (90.0-100.0); Site Drawn RIGHT RADIAL
[2023-11-23] MEDS: hydroCHLOROthiazide 25 MG TABLET PO (09:21)
[2023-11-23] MEDS: guaiFENesin 12 HR 600 MG TABCR PO ×2 (09:21→21:48)
[2023-11-23] MEDS: ENOXAPARIN 40 MG/0.4 ML SYRINGE SUB-Q (09:21)
[2023-11-23] MEDS: IPRATROPIUM 0.5 MG/ALBUTEROL SULFATE 2.5 MG AMPUL.NEB 3 ML INHALATION ×2 (13:35→19:50)
[2023-11-23] MEDS: PERFLUTREN LIPID MICROSPHERES 1.5 ML VIAL DILUTED TO 10 ML TOTAL VOLUME IV PUSH (14:15)
--- NOTE | 2023-11-23 14:54 | IVDEFINITY ---
Prior to administration of IV Definity the patient was educated on the risks and benefits of the imaging enhancing agent including potential adverse side effects. The patient verbalized understanding. Allergies were verified. No exclusion criteria were identified and at least one of the following inclusion criteria were met: 1) physician request, 2) patient technically difficult to image (per the [place] [employer] guidelines of two or more segments not discernable within the apical view), or 3) questionable left ventricular function. ?
--- NOTE | 2023-11-23 16:15 | PC.NURSE ---
This patient, Clau Shepard, was received from medical floor on 11/23/23 at 1155. Patient/family oriented to unit policies and routines
[2023-11-23 16:23] LABS: Alveolar/Arterial O2 Gradient 202.7 mmHg; Base Excess ABG 11.3 mEq/l (+/-2.0); Carboxyhemoglobin 1.8 % THb (0-2.0); Fractional Inspired Oxygen 50 %; HCO3 ABG 40.9 mEq/l (22.0-26.0); Methemoglobin ABG 0.5 %THb (0-1.5); Oxygen Content ABG 19.9 %vol (16.0-22.0); Oxygen Saturation ABG 91.7 % (95.0-100.0); Oxyhemoglobin 91.3 % THb (90.0-100.0); PO2 ABG 67.9 mmHg (80.0-100.0); PO2 FiO2 Ratio Arterial Blood 1.36 %; Reduced Hemoglobin 6.4 %THb (0-5.0); Total Hemoglobin 15.5 g/dL (12.0-18.0); pH ABG 7.346 (7.350-7.450)
[2023-11-23 16:26] LABS: Modified Allen's Test Pass; PCO2 ABG 76.4 mmHg (35.0-45.0); Site Drawn RIGHT RADIAL
[2023-11-23 16:27] LABS: Device NON-INVASIVE VENT
[2023-11-23 16:28] LABS: Non-Invasive Expiratory Pressure 5 CMH2O; Non-Invasive Inspiratory Pressure 10 CMH2O; Non-Invasive Vent Rate 12 /MIN
[2023-11-23] MEDS: LOSARTAN POTASSIUM 100 MG TABLET PO (21:47)
[2023-11-23] MEDS: ATORVASTATIN 10 MG TABLET PO (21:47)
[2023-11-23] MEDS: amLODIPine BESYLATE 2.5 MG TABLET PO (21:48)
[2023-11-23] MEDS: rOPINIRole HCL 0.25 MG TABLET PO (21:48)
[2023-11-23] MEDS: NAPROXEN SODIUM 220 MG TABLET PO (21:55)
[2023-11-24] VITALS (34 sets, daily range): BP systolic 135–167; BP diastolic 64–78; PULSE 90–112; RESP 14–27; TEMP 36.1–36.8; O2SAT 90–100
[2023-11-24] MEDS: IPRATROPIUM 0.5 MG/ALBUTEROL SULFATE 2.5 MG AMPUL.NEB 3 ML INHALATION ×4 (01:02→21:30)
[2023-11-24 05:27] LABS: Fractional Inspired Oxygen 50 %
[2023-11-24 05:30] LABS: PCO2 ABG 78.2 mmHg (35.0-45.0); pH ABG 7.298 (7.350-7.450)
[2023-11-24 05:31] LABS: Base Excess ABG 7.5 mEq/l (+/-2.0); HCO3 ABG 37.4 mEq/l (22.0-26.0); Oxygen Content ABG 20.1 %vol (16.0-22.0); Oxygen Saturation ABG 93.1 % (95.0-100.0); Oxyhemoglobin 92.7 % THb (90.0-100.0); PO2 ABG 75.5 mmHg (80.0-100.0); PO2 FiO2 Ratio Arterial Blood 1.51 %; Site Drawn RIGHT RADIAL; Total Hemoglobin 15.4 g/dL (12.0-18.0)
[2023-11-24 05:32] LABS: Device BIPAP; Expiratory Pressure 5 cmH2O; Inspiratory Pressure 10 cmH2O; Modified Allen's Test Pass
[2023-11-24] MEDS: methylPREDNISolone SOD SUCC 125 MG VIAL 60 MG IV PUSH (06:19)
--- NOTE | 2023-11-24 07:24 | P.PNIM_ITS ---
Progress Note: A&P Assessment and Plan (1) Acute respiratory failure with hypoxia and hypercapnia: Code(s): J96.01 - Acute respiratory failure with hypoxia; J96.02 - Acute respiratory failure with hypercapnia Status: Acute Assessment and Plan: 11/23/2023: * Likely secondary to COPD exacerbation * Patient presented with an SpO2 of 73-75% on room air, respiratory rate was 26, ABG shown respiratory acidosis with a pCO2 of 77.4, PO2 of 60.3 on 2 L nasal cannula with an oxyhemoglobin of 82.2. * Currently 3.5 L nasal cannula * Repeat ABG this morning showing worsening acidosis with a pH of 7.298, pCO2 77.9, PO2 58.8, bicarb 37.3, O2 saturation 86.5 on 3.5 L. oxy hemoglobin 86.7. * Will start BiPAP 10/5 with a backup rate of 12 and 50%, she will need this continuously until her acidosis corrects * Will transfer to the IMU for continuous BiPAP * Wean O2 to keep sat greater than 92% * Chest x-ray showed minimal pulmonary edema versus atelectasis at the bilateral lung bases * CTA of the chest was negative for PE, showed mild emphysema and a small sliding hiatal hernia * Patient was given a DuoNeb, 1 L normal saline, and 125 mg IV push Solu-Medrol while in the ED * Continue DuoNebs * Continue Solu-Medrol 60 mg IV push change to q.8 hours * Continue Mucinex and singular * Continue cardiac monitoring * Respiratory panel negative for influenza a and B, RSV, and COVID * White blood cell count 7.6, proBNP was 371, troponin x4 flat * Patient has 1+ pitting bilateral lower extremity edema, will obtain an echo today as she has not had 1 in our system to review. * Will obtain echocardiogram today 11/24/2023: * patient remained on BiPAP overnight, settings of 14/7 with a backup rate of 20 and 50% FiO2 * ABG this morning showing worsening acidosis, pH 7.298, pCO2 92.8, PO2 87.3, bicarb 44.4. O2 saturation on the ABG was 95.1, base excess is 13.0, oxyhemoglobin 94.6 * increase BiPAP to 16/8 with backup rate of 20 and 50% * will repeat ABG around 2:00 p.m. today * pulmonary consulted for further assistance with controlling her gas exchange * echocardiogram revealed a normal LV function with estimated EF of 70% with grade 1 diastolic dysfunction, mild pulmonary hypertension within estimated pulmonary arterial systolic pressure 43 mmHg , there was a note a 0.5 x 0.5 cm calcification noted on the aortic valve which is less likely vegetation. * Will get Cardiology on board to review echo and manage diastolic congestive heart failure * Lasix 40 mg IV ordered for today. * continue with DuoNebs * Solu-Medrol weaned down to 60 mg IV push b.i.d. * continue IMU status and cardiac monitoring * continue Mucinex and Singulair as scheduled (2) Chronic obstructive pulmonary disease: Code(s): J44.9 - Chronic obstructive pulmonary disease, unspecified Status: Acute Assessment and Plan: 11/23/2023: * COPD exacerbation * Does not use home oxygen, CPAP or BiPAP * Has reported confusion and fatigue home along with shortness of breath * Normally on Advair and albuterol inhalers at home, she also has a nebulizer with neb treatments as needed * She continues on Singulair and guaifenesin at home as well * See above plan of care for additional workup 11/24/2023: * pulmonary consult for continued respiratory acidosis despite BiPAP * see above plan of care (3) Diastolic congestive heart failure: Code(s): I50.30 - Unspecified diastolic (congestive) heart failure Status: Acute Assessment and Plan: 11/24/23: * echocardiogram revealed a normal LV function with estimated EF of 70% with grade 1
--- NOTE | 2023-11-24 07:24 | PM.IMPN ---
Progress Note: A&P Assessment and Plan (1) Acute respiratory failure with hypoxia and hypercapnia: Code(s): J96.01 - Acute respiratory failure with hypoxia; J96.02 - Acute respiratory failure with hypercapnia Status: Acute Assessment and Plan: 11/23/2023: Likely secondary to COPD exacerbation Patient presented with an SpO2 of 73-75% on room air, respiratory rate was 26, ABG shown respiratory acidosis with a pCO2 of 77.4, PO2 of 60.3 on 2 L nasal cannula with an oxyhemoglobin of 82.2. Currently 3.5 L nasal cannula Repeat ABG this morning showing worsening acidosis with a pH of 7.298, pCO2 77.9, PO2 58.8, bicarb 37.3, O2 saturation 86.5 on 3.5 L. oxy hemoglobin 86.7. Will start BiPAP 10/5 with a backup rate of 12 and 50%, she will need this continuously until her acidosis corrects Will transfer to the IMU for continuous BiPAP Wean O2 to keep sat greater than 92% Chest x-ray showed minimal pulmonary edema versus atelectasis at the bilateral lung bases CTA of the chest was negative for PE, showed mild emphysema and a small sliding hiatal hernia Patient was given a DuoNeb, 1 L normal saline, and 125 mg IV push Solu-Medrol while in the ED Continue DuoNebs Continue Solu-Medrol 60 mg IV push change to q.8 hours Continue Mucinex and singular Continue cardiac monitoring Respiratory panel negative for influenza a and B, RSV, and COVID White blood cell count 7.6, proBNP was 371, troponin x4 flat Patient has 1+ pitting bilateral lower extremity edema, will obtain an echo today as she has not had 1 in our system to review. Will obtain echocardiogram today 11/24/2023: patient remained on BiPAP overnight, settings of 14/7 with a backup rate of 20 and 50% FiO2 ABG this morning showing worsening acidosis, pH 7.298, pCO2 92.8, PO2 87.3, bicarb 44.4. O2 saturation on the ABG was 95.1, base excess is 13.0, oxyhemoglobin 94.6 increase BiPAP to 16/8 with backup rate of 20 and 50% will repeat ABG around 2:00 p.m. today pulmonary consulted for further assistance with controlling her gas exchange echocardiogram revealed a normal LV function with estimated EF of 70% with grade 1 diastolic dysfunction, mild pulmonary hypertension within estimated pulmonary arterial systolic pressure 43 mmHg , there was a note a 0.5 x 0.5 cm calcification noted on the aortic valve which is less likely vegetation. Will get Cardiology on board to review echo and manage diastolic congestive heart failure Lasix 40 mg IV ordered for today. continue with DuoNebs Solu-Medrol weaned down to 60 mg IV push b.i.d. continue IMU status and cardiac monitoring continue Mucinex and Singulair as scheduled (2) Chronic obstructive pulmonary disease: Code(s): J44.9 - Chronic obstructive pulmonary disease, unspecified Status: Acute Assessment and Plan: 11/23/2023: COPD exacerbation Does not use home oxygen, CPAP or BiPAP Has reported confusion and fatigue home along with shortness of breath Normally on Advair and albuterol inhalers at home, she also has a nebulizer with neb treatments as needed She continues on Singulair and guaifenesin at home as well See above plan of care for additional workup 11/24/2023: pulmonary consult for continued respiratory acidosis despite BiPAP see above plan of care (3) Diastolic congestive heart failure: Code(s): I50.30 - Unspecified diastolic (congestive) heart failure Status: Acute Assessment and Plan: 11/24/23: echocardiogram revealed a normal LV function with estimated EF of 70% with grade 1 diastolic dysfunction, mild pulmonary hypertension within estimated pulmonary arterial systolic pressure 43 mmHg , there was a note a 0.5 x 0.5 cm calcification noted on the aortic valve which is less likely vegetation. Will get Cardiology on board to review echo and manage diastolic congestive heart failure Lasix 40 mg IV ordered for today. (4) Essential hypertension:
[2023-11-24 07:40] LABS: Alveolar/Arterial O2 Gradient 164.8 mmHg; Carboxyhemoglobin 0.9 % THb (0-2.0); Fractional Inspired Oxygen 50 %; HCO3 ABG 44.4 mEq/l (22.0-26.0); Methemoglobin ABG 0.5 %THb (0-1.5); Oxygen Content ABG 20.8 %vol (16.0-22.0); Oxygen Saturation ABG 95.1 % (95.0-100.0); Oxyhemoglobin 94.6 % THb (90.0-100.0); PO2 ABG 87.3 mmHg (80.0-100.0); PO2 FiO2 Ratio Arterial Blood 1.75 %; Total Hemoglobin 15.6 g/dL (12.0-18.0)
[2023-11-24 07:47] LABS: pH ABG 7.298 (7.350-7.450)
[2023-11-24 07:48] LABS: Device NON-INVASIVE VENT; Modified Allen's Test Pass; Non-Invasive Expiratory Pressure 7 CMH2O; Non-Invasive Inspiratory Pressure 14 CMH2O; Non-Invasive Vent Rate 20 /MIN; PCO2 ABG 92.8 mmHg (35.0-45.0); Site Drawn LEFT RADIAL
[2023-11-24 08:02] LABS: Basophils Percent Auto 0.1 % (0.2-1.2); Hematocrit 48.8 % (37.0-47.0); Immature Granulocyte Absolute 0.02 K/mm3 (0.00-0.031); Immature Granulocyte Percent A 0.2 % (0-0.5); Lymphocytes Absolute Auto 0.26 K/mm3 (0.9-3.2); Mean Corpuscular HGB Conc 30.7 g/dl (32-36); Mean Corpuscular Hemoglobin 27.4 pg (26-34); Mean Corpuscular Volume 89.2 fl (80-100); Monocytes Absolute Auto 0.3 K/mm3 (0.1-0.6); Monocytes Percent Auto 3.3 % (2.6-8.5); Neutrophils Absolute Auto 8.2 K/mm3 (1.3-6.7); Neutrophils Percent Auto 93.4 % (45.5-73.1); Platelet Count Result 208 k/mm3 (150-375); Red Blood Count 5.47 M/mm3 (4.2-5.4); Red Cell Distribution Width 15.1 % (11.5-14.5); White Blood Count 8.8 K/mm3 (4.5-10.0)
[2023-11-24 08:19] LABS: Alanine Aminotransferase 23 U/L (6-35); Albumin Level 3.5 g/dL (3.5-5.1); Alkaline Phosphatase 73 U/L (38-126); Aspartate Amino Transferase 23 U/L (14-36); Bilirubin,Total 0.7 mg/dL (0.2-1.3); Blood Urea Nitrogen 15 mg/dL (7-17); Calcium 9.6 mg/dL (8.4-10.2); Carbon Dioxide > 40 mmol/L (22-30); Chloride 89 mmol/L (98-107); Estimated CRCL calculation 67 ml/min; Estimated Glomerular Filt Rate > 60; Glucose 132 mg/dL (65-110); Potassium 4.4 mmol/L (3.4-5.0); Sodium 131 mmol/L (137-145)
[2023-11-24] MEDS: hydroCHLOROthiazide 25 MG TABLET PO (09:59)
[2023-11-24] MEDS: buPROPion HCL XL (24 HR) 150 MG TABCR PO (09:59)
[2023-11-24] MEDS: MONTELUKAST SODIUM 10 MG TABLET PO (09:59)
[2023-11-24] MEDS: POTASSIUM CHLORIDE 10 MEQ ER TABLET PO (09:59)
[2023-11-24] MEDS: ENOXAPARIN 40 MG/0.4 ML SYRINGE SUB-Q (09:59)
[2023-11-24] MEDS: guaiFENesin 12 HR 600 MG TABCR PO ×2 (10:01→20:43)
--- NOTE | 2023-11-24 12:15 | PCRCNOTE ---
Spoke with Dr. Kim over the telephone after his consultation with this patient. He stated to RT over the phone that pt looked clinically stable on 4L nasal cannula at this time even though ABG results say otherwise. Dr. Kim placed pt on AVAPS for night time and PRN at this time. Patient SpO2 levels are 94% on 4L at this time and no confusion.
[2023-11-24] MEDS: FUROSEMIDE INJ 40 MG/4 ML VIAL IV PUSH (12:20)
--- NOTE | 2023-11-24 12:51 | PM.CNPUL ---
Assessment and Plan Assessment and plan (1) Chronic obstructive pulmonary disease: Code(s): J44.9 - Chronic obstructive pulmonary disease, unspecified Status: Acute Assessment and Plan: Patient carries a diagnosis of COPD. She has a 63 pack year tobacco use in currently smoking 10 cigarettes a day. I have no PFTs. Her CT scan of the chest shows moderate apical predominant centrilobular and mild apical predominant paraseptal emphysema. She has worsening dyspnea on exertion over the last year from 3 blocks to now 1/2 block. Over the last 2 months she has been fatigued with a recent exacerbation treated as an outpatient on 11/06/2023 with prednisone taper. More recently she has been fatigued with low oxygen saturation at home 78-83% and increased confusion. Her hemoglobin is elevated at 15.[address] angiogram was negative for PE. echocardiogram shows normal LV function, grade 1 diastolic dysfunction, normal right ventricular size and function, right atrium is moderately enlarged with a PASP of 43. Currently she has no change in her sputum volume or color. She currently has no wheezing. Plan: I will send an alpha 1 anti trypsin genotype and level. I will continue treatment for COPD exacerbation. Currently she has no wheezing. I will change her prednisone to 40 mg p.o. q.day, today is day 3 of steroids and will give a total of 5 days. I will continue her DuoNebs at q.6 hours. The patient is on montelukast and I will continue this for now. she has no change in her sputum and at this time I will continue to hold off on antibiotics. Discussed with Jenifer Gaytan, will follow with you (2) Chronic respiratory failure with hypoxia and hypercapnia: Code(s): J96.11 - Chronic respiratory failure with hypoxia; J96.12 - Chronic respiratory failure with hypercapnia Status: Acute Assessment and Plan: patient has acute on chronic hypercarbic and hypoxemic respiratory failure from her COPD. Of note patient's hemoglobin on 07/01/2020 was 17.8 and has remained above 15 since then. Patient's serum bicarbonate has ranged from 28 to 39 as an outpatient going back to 07/01/2020. I suspect she has had long-term chronic hypoxemic and hypercarbic respiratory failure. Presented to the emergency department with serum bicarbonate was 39, hemoglobin was 15.9, ABG on 2 L was 7.32/77/60. 11/23/2023: Repeat ABG on 3.5 L nasal cannula 7.30/60. Patient was placed on BiPAP rate of 12, pressures 10/5 and 50% with a blood gas of 7.35/76/68. 11/24/2023: Patient wore BiPAP 10/5 with a rate of 12 overnight and her blood gas that was not improved 7.30/78/76. BiPAP was changed to rate of 20, pressures 14/70 in 50% and repeat blood gas 2 hours later was not improve at 7.30/93/87. the patient has chronic hypercarbic respiratory failure from her COPD and would benefit from noninvasive ventilation to prevent further deterioration and subsequent hospitalizations. Her blood gases did not improve with BiPAP and she said that the pressure was too high. The patient would benefit from noninvasive ventilation with the AVAPS mode. I placed her on noninvasive ventilation with the AVAPS mode and adjusted her settings to comfort Resulting in a rate of 20, tidal volume 500, EPAP 5, minimal inspiratory pressure 6, maximal inspiratory pressure 25, inspiratory time 1.0, rise of 2 and 36% FiO2. Plan: Patient should wear noninvasive ventilation with the AVAPS mode when she naps and sleeps. I will check a blood gas in the morning prior to removal of the mask and an overnight oximetry on these settings to assess her oxygenation and ventilation. On 11/25/2023 will discuss set up of home noninvasive ventilation with respiratory support technician. History of Present Illness History of Present Illness Consult date: 11/24/23 Chief complaint: hypoxia, COPD Narrative: 11/24/23: This is a new pulmonary consult for COPD with acu
[2023-11-24] MEDS: amLODIPine BESYLATE 2.5 MG TABLET PO (20:43)
[2023-11-24] MEDS: rOPINIRole HCL 0.25 MG TABLET PO (20:43)
[2023-11-24] MEDS: ATORVASTATIN 10 MG TABLET PO (20:43)
[2023-11-24] MEDS: LOSARTAN POTASSIUM 100 MG TABLET PO (20:44)
[2023-11-24] MEDS: NAPROXEN SODIUM 220 MG TABLET PO (22:14)
[2023-11-25] VITALS (25 sets, daily range): BP systolic 131–154; BP diastolic 65–83; PULSE 91–108; RESP 18–24; TEMP 36.1–36.9; O2SAT 85–99
--- NOTE | 2023-11-25 02:57 | PCRCNOTE ---
0200 updraft treatment not given due to patient being on an overnight pulse oximetry study. Treatment to resume at 0800.
[2023-11-25 05:50] LABS: Alveolar/Arterial O2 Gradient 108.9 mmHg; Base Excess ABG 17.5 mEq/l (+/-2.0); Fractional Inspired Oxygen 36 %; HCO3 ABG 47.3 mEq/l (22.0-26.0); Oxygen Content ABG 19.1 %vol (16.0-22.0); PO2 ABG 56.4 mmHg (80.0-100.0); PO2 FiO2 Ratio Arterial Blood 1.57 %; Total Hemoglobin 15.5 g/dL (12.0-18.0); pH ABG 7.396 (7.350-7.450)
[2023-11-25 05:51] LABS: PCO2 ABG 78.8 mmHg (35.0-45.0)
[2023-11-25 05:52] LABS: Oxygen Saturation ABG 87.7 % (95.0-100.0); Oxyhemoglobin 87.8 % THb (90.0-100.0); Site Drawn RIGHT BRACHIAL
[2023-11-25 05:53] LABS: Device NON-INVASIVE VENT
[2023-11-25 05:54] LABS: Non-Invasive Vent Rate 20 /MIN
[2023-11-25 05:55] LABS: Non-Invasive Expiratory Pressure 5 CMH2O
[2023-11-25 06:33] LABS: Basophils Percent Auto 0.1 % (0.2-1.2); Hematocrit 50.3 % (37.0-47.0); Hemoglobin 15.4 g/dL (12.0-15.0); Immature Granulocyte Absolute 0.05 K/mm3 (0.00-0.031); Immature Granulocyte Percent A 0.3 % (0-0.5); Lymphocytes Absolute Auto 0.97 K/mm3 (0.9-3.2); Lymphocytes Percent Auto 6.3 % (18.3-44.2); Mean Corpuscular HGB Conc 30.6 g/dl (32-36); Mean Corpuscular Hemoglobin 27.2 pg (26-34); Mean Corpuscular Volume 88.9 fl (80-100); Mean Platelet Volume 9.5 fl (7.4-10.4); Monocytes Absolute Auto 1.1 K/mm3 (0.1-0.6); Monocytes Percent Auto 6.8 % (2.6-8.5); Neutrophils Absolute Auto 13.4 K/mm3 (1.3-6.7); Neutrophils Percent Auto 86.5 % (45.5-73.1); Platelet Count Result 189 k/mm3 (150-375); Red Blood Count 5.66 M/mm3 (4.2-5.4); Red Cell Distribution Width 15.7 % (11.5-14.5); White Blood Count 15.5 K/mm3 (4.5-10.0)
[2023-11-25 06:53] LABS: Alanine Aminotransferase 23 U/L (6-35); Albumin Level 3.5 g/dL (3.5-5.1); Alkaline Phosphatase 77 U/L (38-126); Aspartate Amino Transferase 24 U/L (14-36); Bilirubin,Total 0.8 mg/dL (0.2-1.3); Blood Urea Nitrogen 20 mg/dL (7-17); Calcium 9.3 mg/dL (8.4-10.2); Carbon Dioxide > 40 mmol/L (22-30); Chloride 83 mmol/L (98-107); Estimated CRCL calculation 67 ml/min; Estimated Glomerular Filt Rate > 60; Glucose 95 mg/dL (65-110); Potassium 2.9 mmol/L (3.4-5.0); Sodium 133 mmol/L (137-145)
[2023-11-25] MEDS: IPRATROPIUM 0.5 MG/ALBUTEROL SULFATE 2.5 MG AMPUL.NEB 3 ML INHALATION ×3 (07:06→20:30)
--- NOTE | 2023-11-25 08:19 | PM.PNPUL ---
Progress Note: A&P Assessment and Plan (1) Chronic respiratory failure with hypoxia and hypercapnia: Code(s): J96.11 - Chronic respiratory failure with hypoxia; J96.12 - Chronic respiratory failure with hypercapnia Status: Acute (2) Acute respiratory failure with hypoxia and hypercapnia: Code(s): J96.01 - Acute respiratory failure with hypoxia; J96.02 - Acute respiratory failure with hypercapnia Status: Acute (3) Chronic obstructive pulmonary disease: Code(s): J44.9 - Chronic obstructive pulmonary disease, unspecified Status: Acute Assessment and Plan: This 68-year-old woman, diagnosed with COPD and using maintenance bronchodilators like Advair for an extended period, as well as short-acting bronchodilators on an as-needed basis, and currently a smoker, presented with shortness of breath and lower extremity edema persisting for approximately three weeks. She experienced [id number] hypercapnic hypoxemic respiratory failure and appears to be responding well to treatment with nebulized short-acting bronchodilators, steroids, and noninvasive ventilatory support using BiPAP AVAPS. Her latest arterial blood gas analysis showed a normal pH, and the lower extremity edema has resolved. However, on the previous night's ApneaLink test, she exhibited hypoxemia despite being on supplemental oxygen and struggled with adapting to high BiPAP pressures. Chest imaging revealed mild emphysematous changes mainly in the apices and a prominent pulmonary artery, while a recent echocardiogram showed mild pulmonary hypertension. Plan: To continue the current treatment plan involving oral steroids, short-acting bronchodilators, DVT prophylaxis, and nighttime BiPAP support. Adjust BiPAP pressures due to the patient's difficulty in adapting to the current settings and increase FiO2 at night. Encourage mobilization from bed to chair for the patient. (4) Tobacco abuse: Code(s): Z72.0 - Tobacco use Status: Acute (5) Restless legs: Code(s): G25.81 - Restless legs syndrome Status: Chronic Subjective Date/time seen: 11/25/23 08:19 Interval history: This 68-year-old female presented with shortness of breath and lower extremity edema of approximately 3 weeks duration. She was evaluated in the emergency room she was found to have hypoxemia. She has been treated for COPD exacerbation, with acute on chronic hypercapnic respiratory failure. Currently she has been on just supplemental oxygen via nasal cannula. She used BiPAP support last night but did not sleep well because of a difficulty getting used to BiPAP pressures. She has no shortness of breath while remaining in bed. No wheezing or sputum production afebrile. Last ABGs showed pH over 7.32 Review of Systems Review of Systems: All systems reviewed & are unremarkable except as noted in HPI and below (HPI and below) Exam Narrative: GENERAL APPEARANCE: Well developed, well nourished, alert and cooperative, and appears to be in no acute distress while on supplemental oxygen SKIN: Inspection of the skin reveals no rashes, ulcerations or petechiae. HEENT: Sclerae anicteric and conjunctivae pink and moist. Extraocular movements were intact and pupils were equal, round, and reactive to light. The oral mucosa, hard and soft palate, tongue and posterior pharynx were normal. NECK: Supple. There was no thyroid enlargement, and no tenderness, or masses were felt. LUNGS: Rhonchi and crackles at bases posteriorly no wheezing CARDIAC: There was a regular rate and rhythm without any murmurs, gallops, rubs. ABDOMEN: Soft and nontender with normal bowel sounds. There was no organomegaly. LYMPH NODES: No lymphadenopathy was appreciated in the neck. EXTREMITIES: No cyanosis, clubbing or edema. NEUROLOGIC: Alert and oriented x 3. Normal affect. Objective Data Vital Signs Vital Signs: Vital Signs - 24 hr 11/24/23 10:01 11/24/23 10:03 11/24/23 12:27 Tem
[2023-11-25] MEDS: POTASSIUM CHLORIDE 10 MEQ ER TABLET PO (08:59)
[2023-11-25] MEDS: guaiFENesin 12 HR 600 MG TABCR PO ×2 (08:59→20:55)
[2023-11-25] MEDS: ENOXAPARIN 40 MG/0.4 ML SYRINGE SUB-Q (08:59)
[2023-11-25] MEDS: MONTELUKAST SODIUM 10 MG TABLET PO (09:00)
[2023-11-25] MEDS: buPROPion HCL XL (24 HR) 150 MG TABCR PO (09:00)
[2023-11-25] MEDS: hydroCHLOROthiazide 25 MG TABLET PO (09:00)
[2023-11-25] MEDS: predniSONE 20 MG TABLET 40 MG PO (09:00)
--- NOTE | 2023-11-25 09:10 | P.PNIM_ITS ---
Progress Note: A&P Assessment and Plan (1) Acute respiratory failure with hypoxia and hypercapnia: Code(s): J96.01 - Acute respiratory failure with hypoxia; J96.02 - Acute respiratory failure with hypercapnia Status: Acute Assessment and Plan: 11/23/2023: * Likely secondary to COPD exacerbation * Patient presented with an SpO2 of 73-75% on room air, respiratory rate was 26, ABG shown respiratory acidosis with a pCO2 of 77.4, PO2 of 60.3 on 2 L nasal cannula with an oxyhemoglobin of 82.2. * Currently 3.5 L nasal cannula * Repeat ABG this morning showing worsening acidosis with a pH of 7.298, pCO2 77.9, PO2 58.8, bicarb 37.3, O2 saturation 86.5 on 3.5 L. oxy hemoglobin 86.7. * Will start BiPAP 10/5 with a backup rate of 12 and 50%, she will need this continuously until her acidosis corrects * Will transfer to the IMU for continuous BiPAP * Wean O2 to keep sat greater than 92% * Chest x-ray showed minimal pulmonary edema versus atelectasis at the bilateral lung bases * CTA of the chest was negative for PE, showed mild emphysema and a small sliding hiatal hernia * Patient was given a DuoNeb, 1 L normal saline, and 125 mg IV push Solu-Medrol while in the ED * Continue DuoNebs * Continue Solu-Medrol 60 mg IV push change to q.8 hours * Continue Mucinex and singular * Continue cardiac monitoring * Respiratory panel negative for influenza a and B, RSV, and COVID * White blood cell count 7.6, proBNP was 371, troponin x4 flat * Patient has 1+ pitting bilateral lower extremity edema, will obtain an echo today as she has not had 1 in our system to review. * Will obtain echocardiogram today 11/24/2023: * patient remained on BiPAP overnight, settings of 14/7 with a backup rate of 20 and 50% FiO2 * ABG this morning showing worsening acidosis, pH 7.298, pCO2 92.8, PO2 87.3, bicarb 44.4. O2 saturation on the ABG was 95.1, base excess is 13.0, oxyhemoglobin 94.6 * increase BiPAP to 16/8 with backup rate of 20 and 50% * will repeat ABG around 2:00 p.m. today * pulmonary consulted for further assistance with controlling her gas exchange * echocardiogram revealed a normal LV function with estimated EF of 70% with grade 1 diastolic dysfunction, mild pulmonary hypertension within estimated pulmonary arterial systolic pressure 43 mmHg , there was a note a 0.5 x 0.5 cm calcification noted on the aortic valve which is less likely vegetation. * Will get Cardiology on board to review echo and manage diastolic congestive heart failure * Lasix 40 mg IV ordered for today. * continue with DuoNebs * Solu-Medrol weaned down to 60 mg IV push b.i.d. * continue IMU status and cardiac monitoring * continue Mucinex and Singulair as scheduled 11/25/23: * Patient was started on AVAPS for overnight use per pulmonology. * ABG showing improvement in her acidosis, pH 7.396, pCO2 78.8, PO2 56.4, bicarb 47.3, O2 saturation 87.7 %, oxyhemoglobin 87.8. * Pulmonology still following * cardiology consulted for echo * Solu-Medrol DC by pulmonology patient was started on prednisone * continue DuoNebs * Stable to move out of IMU [place] a med [facility] [place] (2) Chronic obstructive pulmonary disease: Code(s): J44.9 - Chronic obstructive pulmonary disease, unspecified Status: Acute Assessment and Plan: 11/23/2023: * COPD exacerbation * Does not use home oxygen, CPAP or BiPAP * Has reported confusion and fatigue home along with shortness of breath * Normally on Advair and albuterol inhalers at home, she also has a nebulizer w ith neb treatments as needed * She continues on Singulair and guaifenesin at home as well * See
--- NOTE | 2023-11-25 09:10 | PM.IMPN ---
Progress Note: A&P Assessment and Plan (1) Acute respiratory failure with hypoxia and hypercapnia: Code(s): J96.01 - Acute respiratory failure with hypoxia; J96.02 - Acute respiratory failure with hypercapnia Status: Acute Assessment and Plan: 11/23/2023: Likely secondary to COPD exacerbation Patient presented with an SpO2 of 73-75% on room air, respiratory rate was 26, ABG shown respiratory acidosis with a pCO2 of 77.4, PO2 of 60.3 on 2 L nasal cannula with an oxyhemoglobin of 82.2. Currently 3.5 L nasal cannula Repeat ABG this morning showing worsening acidosis with a pH of 7.298, pCO2 77.9, PO2 58.8, bicarb 37.3, O2 saturation 86.5 on 3.5 L. oxy hemoglobin 86.7. Will start BiPAP 10/5 with a backup rate of 12 and 50%, she will need this continuously until her acidosis corrects Will transfer to the IMU for continuous BiPAP Wean O2 to keep sat greater than 92% Chest x-ray showed minimal pulmonary edema versus atelectasis at the bilateral lung bases CTA of the chest was negative for PE, showed mild emphysema and a small sliding hiatal hernia Patient was given a DuoNeb, 1 L normal saline, and 125 mg IV push Solu-Medrol while in the ED Continue DuoNebs Continue Solu-Medrol 60 mg IV push change to q.8 hours Continue Mucinex and singular Continue cardiac monitoring Respiratory panel negative for influenza a and B, RSV, and COVID White blood cell count 7.6, proBNP was 371, troponin x4 flat Patient has 1+ pitting bilateral lower extremity edema, will obtain an echo today as she has not had 1 in our system to review. Will obtain echocardiogram today 11/24/2023: patient remained on BiPAP overnight, settings of 14/7 with a backup rate of 20 and 50% FiO2 ABG this morning showing worsening acidosis, pH 7.298, pCO2 92.8, PO2 87.3, bicarb 44.4. O2 saturation on the ABG was 95.1, base excess is 13.0, oxyhemoglobin 94.6 increase BiPAP to 16/8 with backup rate of 20 and 50% will repeat ABG around 2:00 p.m. today pulmonary consulted for further assistance with controlling her gas exchange echocardiogram revealed a normal LV function with estimated EF of 70% with grade 1 diastolic dysfunction, mild pulmonary hypertension within estimated pulmonary arterial systolic pressure 43 mmHg , there was a note a 0.5 x 0.5 cm calcification noted on the aortic valve which is less likely vegetation. Will get Cardiology on board to review echo and manage diastolic congestive heart failure Lasix 40 mg IV ordered for today. continue with DuoNebs Solu-Medrol weaned down to 60 mg IV push b.i.d. continue IMU status and cardiac monitoring continue Mucinex and Singulair as scheduled 11/25/23: Patient was started on AVAPS for overnight use per pulmonology. ABG showing improvement in her acidosis, pH 7.396, pCO2 78.8, PO2 56.4, bicarb 47.3, O2 saturation 87.7 %, oxyhemoglobin 87.8. Pulmonology still following cardiology consulted for echo Solu-Medrol DC by pulmonology patient was started on prednisone continue DuoNebs Stable to move out of IMU to a med surge bed with tele (2) Chronic obstructive pulmonary disease: Code(s): J44.9 - Chronic obstructive pulmonary disease, unspecified Status: Acute Assessment and Plan: 11/23/2023: COPD exacerbation Does not use home oxygen, CPAP or BiPAP Has reported confusion and fatigue home along with shortness of breath Normally on Advair and albuterol inhalers at home, she also has a nebulizer with neb treatments as needed She continues on Singulair and guaifenesin at home as well See above plan of care for additional workup 11/24/2023: pulmonary consult for continued respiratory acidosis despite BiPAP see above plan of care 11/25/2023: pulmonology consulted and following see above plan of care (3) Diastolic congestive heart failure: Code(s): I50.30 - Unspecified diastolic (congestive) heart failure Status: Acute Asse
--- NOTE | 2023-11-25 11:22 | PM.CNCAR ---
Assessment and Plan Assessment and plan (1) Diastolic congestive heart failure: Code(s): I50.30 - Unspecified diastolic (congestive) heart failure Status: Acute Assessment and Plan: Acute diastolic heart failure improved with IV furosemide. Swelling resolved. Still has some RLL rales. Since her edema has mostly resolved IV furosemide can be shifted to p.o. K+ 2.9 today - give 40 mEq KCL Check BMP in a.m. Will add spironolactone for diastolic dysfunction and BP Cardiology will follow on an as needed basis. Please call with questions. (2) Chronic respiratory failure with hypoxia and hypercapnia: Code(s): J96.11 - Chronic respiratory failure with hypoxia; J96.12 - Chronic respiratory failure with hypercapnia Status: Acute Assessment and Plan: Secondary to COPD exacerbation and mild CHF. Improving. Wean O2 as tolerated. (3) Essential hypertension: Code(s): I10 - Essential (primary) hypertension Status: Acute Assessment and Plan: Blood pressure is at goal. History of Present Illness History of Present Illness Consult date/time: 11/25/23 11:22 Requesting physician: Jenifer Gaytan APRN Consult reason: congestive heart failure Reason For Visit: hypoxia, COPD Narrative: Clau Shepard is a 68 year old female with COPD admitted for worsening shortness of breath. Patient states she began experiencing shortness of breath around 11/06/23. She went to her primary care doctor and was treated for COPD exacerbation and reports improvement, but after finishing steroids she once again had worsening shortness of breath. She was also experiencing significant lower extremity swelling extending up to her abdomen. She denies any personal history of heart problems including congestive heart failure, arrhythmias, coronary artery disease, but does state she has a strong family history of coronary disease. She is feeling much better since admission - her swelling has resolved after several doses of IV furosemide and her breathing is better. At the time of my visit with her she has no complaints. Review of Systems Review of Systems: All systems reviewed & are unremarkable except as noted in HPI and below PMFSH Past Medical History Medical History Allergic rhinitis Chronic obstructive pulmonary disease DDD (degenerative disc disease), cervical Depression Diastolic congestive heart failure Essential hypertension Mixed hyperlipidemia Normal colonoscopy Osteopenia Tobacco abuse Vitamin B12 deficiency Vitamin D deficiency Surgical History Surgical History History of bladder surgery History of dilatation and curettage Family History Family History Other Family history of coronary artery disease Social History Social History Smoking packs per day: 0.5 Smoking cigarettes per day: 10.0 Years smoked: 50 Smoking pack-years: 25.00 Smoking status: Current every day smoker Tobacco type: cigarettes Second hand tobacco smoke exposure: No Alcohol intake: never Substance use: never Substance use type: does not use Do You Feel Safe in your Home?: Yes Lack of Transportation: No Lack of Food: Never True Current Housing: I Have Housing Concerned About Future Housing: No Difficulty Paying Gas/Electric Bills: No Difficulty Paying for Meds: No Currently Unemployed: No Education: Master's Degree or Higher Difficulty w/ Childcare or Family Care: No Living arrangements: with family Occupation/Education: occupation 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
[2023-11-25] MEDS: POTASSIUM CHLORIDE 20 MEQ ER TABLET 40 MEQ PO (18:02)
[2023-11-25] MEDS: amLODIPine BESYLATE 2.5 MG TABLET PO (20:54)
[2023-11-25] MEDS: LOSARTAN POTASSIUM 100 MG TABLET PO (20:55)
[2023-11-25] MEDS: rOPINIRole HCL 0.25 MG TABLET PO (20:55)
[2023-11-25] MEDS: ATORVASTATIN 10 MG TABLET PO (20:55)
[2023-11-25] MEDS: NAPROXEN SODIUM 220 MG TABLET PO (20:56)
[2023-11-26] VITALS (19 sets, daily range): BP systolic 142–158; BP diastolic 66–76; PULSE 79–105; RESP 17–24; TEMP 36.7–37.2; O2SAT 84–97
[2023-11-26] MEDS: IPRATROPIUM 0.5 MG/ALBUTEROL SULFATE 2.5 MG AMPUL.NEB 3 ML INHALATION ×4 (02:50→19:50)
[2023-11-26 05:21] LABS: Basophils Percent Auto 0.2 % (0.2-1.2); Eosinophils Percent Auto 0.2 % (0-4.4); Hematocrit 47.4 % (37.0-47.0); Hemoglobin 14.6 g/dL (12.0-15.0); Immature Granulocyte Absolute 0.03 K/mm3 (0.00-0.031); Immature Granulocyte Percent A 0.3 % (0-0.5); Lymphocytes Absolute Auto 1.73 K/mm3 (0.9-3.2); Lymphocytes Percent Auto 15.9 % (18.3-44.2); Mean Corpuscular HGB Conc 30.8 g/dl (32-36); Mean Corpuscular Hemoglobin 27.6 pg (26-34); Mean Corpuscular Volume 89.6 fl (80-100); Mean Platelet Volume 10.3 fl (7.4-10.4); Monocytes Absolute Auto 0.8 K/mm3 (0.1-0.6); Monocytes Percent Auto 7.3 % (2.6-8.5); Neutrophils Absolute Auto 8.3 K/mm3 (1.3-6.7); Neutrophils Percent Auto 76.1 % (45.5-73.1); Platelet Count Result 175 k/mm3 (150-375); Red Blood Count 5.29 M/mm3 (4.2-5.4); Red Cell Distribution Width 15.3 % (11.5-14.5); White Blood Count 10.9 K/mm3 (4.5-10.0)
[2023-11-26 05:53] LABS: Alanine Aminotransferase 23 U/L (6-35); Albumin Level 3.4 g/dL (3.5-5.1); Alkaline Phosphatase 74 U/L (38-126); Aspartate Amino Transferase 25 U/L (14-36); Bilirubin,Total 0.9 mg/dL (0.2-1.3); Blood Urea Nitrogen 16 mg/dL (7-17); Calcium 9.4 mg/dL (8.4-10.2); Carbon Dioxide > 40 mmol/L (22-30); Chloride 85 mmol/L (98-107); Estimated CRCL calculation 67 ml/min; Estimated Glomerular Filt Rate > 60; Glucose 87 mg/dL (65-110); Potassium 3.4 mmol/L (3.4-5.0); Sodium 131 mmol/L (137-145)
[2023-11-26] MEDS: FUROSEMIDE 40 MG TABLET PO (08:06)
[2023-11-26] MEDS: hydroCHLOROthiazide 25 MG TABLET PO (08:06)
[2023-11-26] MEDS: MONTELUKAST SODIUM 10 MG TABLET PO (08:06)
[2023-11-26] MEDS: POTASSIUM CHLORIDE 10 MEQ ER TABLET PO (08:06)
[2023-11-26] MEDS: guaiFENesin 12 HR 600 MG TABCR PO ×2 (08:06→20:36)
[2023-11-26] MEDS: SPIRONOLACTONE 12.5 MG TABLET PO (08:06)
[2023-11-26] MEDS: buPROPion HCL XL (24 HR) 150 MG TABCR PO (08:06)
[2023-11-26] MEDS: predniSONE 20 MG TABLET 40 MG PO (08:06)
[2023-11-26] MEDS: ENOXAPARIN 40 MG/0.4 ML SYRINGE SUB-Q (08:10)
--- NOTE | 2023-11-26 08:44 | PM.PNPUL ---
Progress Note: A&P Assessment and Plan (1) Chronic respiratory failure with hypoxia and hypercapnia: Code(s): J96.11 - Chronic respiratory failure with hypoxia; J96.12 - Chronic respiratory failure with hypercapnia Status: Acute (2) Acute respiratory failure with hypoxia and hypercapnia: Code(s): J96.01 - Acute respiratory failure with hypoxia; J96.02 - Acute respiratory failure with hypercapnia Status: Acute (3) Chronic obstructive pulmonary disease: Code(s): J44.9 - Chronic obstructive pulmonary disease, unspecified Status: Acute Assessment and Plan: This 68-year-old woman, diagnosed with COPD and using maintenance bronchodilators like Advair for an extended period, as well as short-acting bronchodilators on an as-needed basis, and currently a smoker, presented with shortness of breath and lower extremity edema persisting for approximately three weeks. She experienced pkyvo-jv-nivkxyq hypercapnic hypoxemic respiratory failure and appears to be responding well to treatment with nebulized short-acting bronchodilators, steroids, and noninvasive ventilatory support using BiPAP AVAPS. Her latest arterial blood gas analysis showed a normal pH, and the lower extremity edema has resolved. Chest imaging revealed mild emphysematous changes mainly in the apices and a prominent pulmonary artery, while a recent echocardiogram showed mild pulmonary hypertension. Patient tolerated BiPAP support last night. From the respiratory notes it is unclear whether new BiPAP settings were used. Plan: The continuation of the existing treatment strategy, which includes oral steroids, short-acting bronchodilators, DVT prophylaxis, and nocturnal BiPAP support, is recommended. Given the patient's severe COPD and chronic hypercapnic respiratory failure, as well as the radiographic emphysema evidenced on the chest CT, the patient stands to gain from home ventilatory support. Anticipated benefits for this specific hypercapnia patient include consistent ventilatory support tailored to the patient's needs via a home ventilator. This will not only enhance the elimination of CO2 and alleviate symptoms associated with severe COPD, but it will also improve the patient's quality of life and reduce the frequency of hospitalizations. (4) Tobacco abuse: Code(s): Z72.0 - Tobacco use Status: Acute (5) Restless legs: Code(s): G25.81 - Restless legs syndrome Status: Chronic Subjective Date/time seen: 11/26/23 08:44 Interval history: Patient has no new respiratory symptoms. Was able to ambulate in the room but experience shortness of breath. Currently no shortness of breath while in bed and on supplemental oxygen. No significant coughing or wheezing. No fever or lower extremity edema. Tolerated BiPAP support last night Review of Systems Review of Systems: All systems reviewed & are unremarkable except as noted in HPI and below (HPI and below) Exam Narrative: GENERAL APPEARANCE: Well developed, well nourished, alert and cooperative, and appears to be in no acute distress while on supplemental oxygen SKIN: Inspection of the skin reveals no rashes, ulcerations or petechiae. HEENT: Sclerae anicteric and conjunctivae pink and moist. Extraocular movements were intact and pupils were equal, round, and reactive to light. The oral mucosa, hard and soft palate, tongue and posterior pharynx were normal. NECK: Supple. There was no thyroid enlargement, and no tenderness, or masses were felt. LUNGS: Rhonchi and crackles at bases posteriorly no wheezing CARDIAC: There was a regular rate and rhythm without any murmurs, gallops, rubs. ABDOMEN: Soft and nontender with normal bowel sounds. There was no organomegaly. LYMPH NODES: No lymphadenopathy was appreciated in the neck. EXTREMITIES: No cyanosis, clubbing or edema. NEUROLOGIC: Alert and oriented x 3. Normal affect. Objective Data Vital Signs Vital Signs: Vital Signs
--- NOTE | 2023-11-26 12:29 | PM.IMPN ---
Progress Note: A&P Assessment and Plan (1) Acute respiratory failure with hypoxia and hypercapnia: Code(s): J96.01 - Acute respiratory failure with hypoxia; J96.02 - Acute respiratory failure with hypercapnia Status: Acute Assessment and Plan: 11/23/2023: Likely secondary to COPD exacerbation Patient presented with an SpO2 of 73-75% on room air, respiratory rate was 26, ABG shown respiratory acidosis with a pCO2 of 77.4, PO2 of 60.3 on 2 L nasal cannula with an oxyhemoglobin of 82.2. Currently 3.5 L nasal cannula Repeat ABG this morning showing worsening acidosis with a pH of 7.298, pCO2 77.9, PO2 58.8, bicarb 37.3, O2 saturation 86.5 on 3.5 L. oxy hemoglobin 86.7. Will start BiPAP 10/5 with a backup rate of 12 and 50%, she will need this continuously until her acidosis corrects Will transfer to the IMU for continuous BiPAP Wean O2 to keep sat greater than 92% Chest x-ray showed minimal pulmonary edema versus atelectasis at the bilateral lung bases CTA of the chest was negative for PE, showed mild emphysema and a small sliding hiatal hernia Patient was given a DuoNeb, 1 L normal saline, and 125 mg IV push Solu-Medrol while in the ED Continue DuoNebs Continue Solu-Medrol 60 mg IV push change to q.8 hours Continue Mucinex and singular Continue cardiac monitoring Respiratory panel negative for influenza a and B, RSV, and COVID White blood cell count 7.6, proBNP was 371, troponin x4 flat Patient has 1+ pitting bilateral lower extremity edema, will obtain an echo today as she has not had 1 in our system to review. Will obtain echocardiogram today 11/24/2023: patient remained on BiPAP overnight, settings of 14/7 with a backup rate of 20 and 50% FiO2 ABG this morning showing worsening acidosis, pH 7.298, pCO2 92.8, PO2 87.3, bicarb 44.4. O2 saturation on the ABG was 95.1, base excess is 13.0, oxyhemoglobin 94.6 increase BiPAP to 16/8 with backup rate of 20 and 50% will repeat ABG around 2:00 p.m. today pulmonary consulted for further assistance with controlling her gas exchange echocardiogram revealed a normal LV function with estimated EF of 70% with grade 1 diastolic dysfunction, mild pulmonary hypertension within estimated pulmonary arterial systolic pressure 43 mmHg , there was a note a 0.5 x 0.5 cm calcification noted on the aortic valve which is less likely vegetation. Will get Cardiology on board to review echo and manage diastolic congestive heart failure Lasix 40 mg IV ordered for today. continue with DuoNebs Solu-Medrol weaned down to 60 mg IV push b.i.d. continue IMU status and cardiac monitoring continue Mucinex and Singulair as scheduled 11/25/23: Patient was started on AVAPS for overnight use per pulmonology. ABG showing improvement in her acidosis, pH 7.396, pCO2 78.8, PO2 56.4, bicarb 47.3, O2 saturation 87.7 %, oxyhemoglobin 87.8. Pulmonology still following cardiology consulted for echo Solu-Medrol DC by pulmonology patient was started on prednisone continue DuoNebs Stable to move out of IMU to a med surge bed with tele 11/26/2023: Continue with AVAPS mode BiPAP for at night, she will need this for at home as well. She does not currently have a BiPAP or CPAP at home. Pulmonology is working on getting that for her. Pulmonology and Cardiology are following Continue prednisone Continue DuoNebs Can DC telemetry Order placed for home Bipap Patient will need a home O2 eval prior to discharge. She dropped to 80% with PT today on her 2L NC. (2) Chronic obstructive pulmonary disease: Code(s): J44.9 - Chronic obstructive pulmonary disease, unspecified Status: Acute Assessment and Plan: 11/23/2023: COPD exacerbation Does not use home oxygen, CPAP or BiPAP Has reported confusion and fatigue home along with shortness of breath Normally on Advair and albuterol inhalers at home, she also has a nebulizer with neb treatments as needed She
--- NOTE | 2023-11-26 19:04 | PC.NURSE ---
On 11/26/23, license pending , provided care and completed [employer] documentation on this patient. I have reviewed the license pending documentation and agree with the findings.
[2023-11-26] MEDS: rOPINIRole HCL 0.25 MG TABLET PO (20:36)
[2023-11-26] MEDS: LOSARTAN POTASSIUM 100 MG TABLET PO (20:36)
[2023-11-26] MEDS: ATORVASTATIN 10 MG TABLET PO (20:36)
[2023-11-26] MEDS: amLODIPine BESYLATE 2.5 MG TABLET PO (20:36)
[2023-11-27] VITALS (22 sets, daily range): BP systolic 158–160; BP diastolic 70–74; PULSE 88–112; RESP 17–24; TEMP 36.8–37.2; O2SAT 86–98
[2023-11-27] MEDS: IPRATROPIUM 0.5 MG/ALBUTEROL SULFATE 2.5 MG AMPUL.NEB 3 ML INHALATION ×4 (01:23→20:30)
[2023-11-27 06:17] LABS: Basophils Percent Auto 0.2 % (0.2-1.2); Eosinophils Percent Auto 0.4 % (0-4.4); Hematocrit 48.5 % (37.0-47.0); Hemoglobin 14.5 g/dL (12.0-15.0); Immature Granulocyte Absolute 0.03 K/mm3 (0.00-0.031); Immature Granulocyte Percent A 0.3 % (0-0.5); Lymphocytes Absolute Auto 1.65 K/mm3 (0.9-3.2); Lymphocytes Percent Auto 16.8 % (18.3-44.2); Mean Corpuscular HGB Conc 29.9 g/dl (32-36); Mean Corpuscular Hemoglobin 26.6 pg (26-34); Mean Platelet Volume 10.7 fl (7.4-10.4); Monocytes Absolute Auto 0.8 K/mm3 (0.1-0.6); Monocytes Percent Auto 8.1 % (2.6-8.5); Neutrophils Absolute Auto 7.3 K/mm3 (1.3-6.7); Neutrophils Percent Auto 74.2 % (45.5-73.1); Platelet Count Result 185 k/mm3 (150-375); Red Blood Count 5.45 M/mm3 (4.2-5.4); Red Cell Distribution Width 15.3 % (11.5-14.5); White Blood Count 9.8 K/mm3 (4.5-10.0)
[2023-11-27 06:26] LABS: Alanine Aminotransferase 25 U/L (6-35); Albumin Level 3.3 g/dL (3.5-5.1); Alkaline Phosphatase 67 U/L (38-126); Aspartate Amino Transferase 29 U/L (14-36); Bilirubin,Total 0.9 mg/dL (0.2-1.3); Blood Urea Nitrogen 13 mg/dL (7-17); Calcium 9.4 mg/dL (8.4-10.2); Carbon Dioxide > 40 mmol/L (22-30); Chloride 83 mmol/L (98-107); Estimated CRCL calculation 67 ml/min; Estimated Glomerular Filt Rate > 60; Glucose 90 mg/dL (65-110); Potassium 3.5 mmol/L (3.4-5.0); Sodium 132 mmol/L (137-145)
[2023-11-27 07:52] LABS: Hypochromasia 1+ (NORMAL); Schistocytes None Seen (NORMAL); Stomatocytes 1+ (NORMAL)
[2023-11-27 07:57] LABS: Platelet Estimate Adequate (Adequate)
[2023-11-27] MEDS: SPIRONOLACTONE 12.5 MG TABLET PO (08:11)
[2023-11-27] MEDS: FUROSEMIDE 40 MG TABLET PO (08:11)
[2023-11-27] MEDS: guaiFENesin 12 HR 600 MG TABCR PO ×2 (08:11→20:38)
[2023-11-27] MEDS: MONTELUKAST SODIUM 10 MG TABLET PO (08:11)
[2023-11-27] MEDS: predniSONE 20 MG TABLET 40 MG PO (08:11)
[2023-11-27] MEDS: ENOXAPARIN 40 MG/0.4 ML SYRINGE SUB-Q (08:12)
[2023-11-27] MEDS: buPROPion HCL XL (24 HR) 150 MG TABCR PO (08:12)
[2023-11-27] MEDS: POTASSIUM CHLORIDE 10 MEQ ER TABLET PO (08:12)
[2023-11-27] MEDS: hydroCHLOROthiazide 25 MG TABLET PO (08:12)
--- NOTE | 2023-11-27 09:31 | PM.PNPUL ---
Progress Note: A&P Assessment and Plan (1) Chronic respiratory failure with hypoxia and hypercapnia: Code(s): J96.11 - Chronic respiratory failure with hypoxia; J96.12 - Chronic respiratory failure with hypercapnia Status: Acute (2) Acute respiratory failure with hypoxia and hypercapnia: Code(s): J96.01 - Acute respiratory failure with hypoxia; J96.02 - Acute respiratory failure with hypercapnia Status: Acute (3) Chronic obstructive pulmonary disease: Code(s): J44.9 - Chronic obstructive pulmonary disease, unspecified Status: Acute Assessment and Plan: This 68-year-old woman, diagnosed with COPD and using maintenance bronchodilators like Advair for an extended period, as well as short-acting bronchodilators on an as-needed basis, and currently a smoker, presented with shortness of breath and lower extremity edema persisting for approximately three weeks. She experienced sojtl-sy-[id number] hypercapnic hypoxemic respiratory failure and appears to be responding well to treatment with nebulized short-acting bronchodilators, steroids, and noninvasive ventilatory support using BiPAP AVAPS. Her latest arterial blood gas analysis showed a normal pH, and the lower extremity edema has resolved. Chest imaging revealed mild emphysematous changes mainly in the apices and a prominent pulmonary artery, while a recent echocardiogram showed mild pulmonary hypertension. Patient tolerated BiPAP support last night. Patient has been on 2 diuretics for lower extremity edema. Addition of Lasix may worsen hypercapnia through contraction alkalosis. Patient had no evidence of elevated BNP on admission and pedal edema has resolved following correction of hypoxemia via supplemental oxygen and BiPAP support. Plan: I would hold Lasix. Continue with BiPAP support, short-acting bronchodilators as prescribed DVT prophylaxis, out of bed to chair with ambulation in room while waiting approval of her home ventilator. Will follow along with you. (4) Tobacco abuse: Code(s): Z72.0 - Tobacco use Status: Acute (5) Restless legs: Code(s): G25.81 - Restless legs syndrome Status: Chronic Subjective Date/time seen: 11/27/23 09:31 Interval history: Patient has no new respiratory symptoms. Able to ambulate in the room with no significant shortness of breath. Mild coughing with clear sputum. No wheezing. Afebrile. Has been using BiPAP support at night. Review of Systems Review of Systems: All systems reviewed & are unremarkable except as noted in HPI and below (HPI and below) Exam Narrative: GENERAL APPEARANCE: Well developed, well nourished, alert and cooperative, and appears to be in no acute distress while on supplemental oxygen SKIN: Inspection of the skin reveals no rashes, ulcerations or petechiae. HEENT: Sclerae anicteric and conjunctivae pink and moist. Extraocular movements were intact and pupils were equal, round, and reactive to light. The oral mucosa, hard and soft palate, tongue and posterior pharynx were normal. NECK: Supple. There was no thyroid enlargement, and no tenderness, or masses were felt. LUNGS: Rhonchi and crackles at bases posteriorly no wheezing CARDIAC: There was a regular rate and rhythm without any murmurs, gallops, rubs. ABDOMEN: Soft and nontender with normal bowel sounds. There was no organomegaly. LYMPH NODES: No lymphadenopathy was appreciated in the neck. EXTREMITIES: No cyanosis, clubbing or edema. NEUROLOGIC: Alert and oriented x 3. Normal affect. Objective Data Vital Signs Vital Signs: Vital Signs - 24 hr 11/26/23 13:18 11/26/23 13:26 11/26/23 14:15 Temperature Pulse Rate 104 H 105 H Respiratory Rate 20 20 Blood Pressure Pulse Oximetry Oxygen Delivery Nasal Cannula Oxygen Flow Rate 2 11/26/23 15:45 11/26/23 19:54 11/26/23 19:51 Temperature 37.2 C 36.7 C Pulse Rate 100 99 95 Respiratory Rate 18 20 17 Blood Pressure 142/66 H 158/74
[2023-11-27] MEDS: NAPROXEN SODIUM 220 MG TABLET PO (10:07)
--- NOTE | 2023-11-27 12:23 | P.PNIM_ITS ---
Progress Note: A&P Assessment and Plan (1) Acute respiratory failure with hypoxia and hypercapnia: Code(s): J96.01 - Acute respiratory failure with hypoxia; J96.02 - Acute respiratory failure with hypercapnia Status: Acute Assessment and Plan: 11/23/2023: * Likely secondary to COPD exacerbation * Patient presented with an SpO2 of 73-75% on room air, respiratory rate was 26, ABG shown respiratory acidosis with a pCO2 of 77.4, PO2 of 60.3 on 2 L nasal cannula with an oxyhemoglobin of 82.2. * Currently 3.5 L nasal cannula * Repeat ABG this morning showing worsening acidosis with a pH of 7.298, pCO2 77.9, PO2 58.8, bicarb 37.3, O2 saturation 86.5 on 3.5 L. oxy hemoglobin 86.7. * Will start BiPAP 10/5 with a backup rate of 12 and 50%, she will need this continuously until her acidosis corrects * Will transfer to the IMU for continuous BiPAP * Wean O2 to keep sat greater than 92% * Chest x-ray showed minimal pulmonary edema versus atelectasis at the bilateral lung bases * CTA of the chest was negative for PE, showed mild emphysema and a small sliding hiatal hernia * Patient was given a DuoNeb, 1 L normal saline, and 125 mg IV push Solu-Medrol while in the ED * Continue DuoNebs * Continue Solu-Medrol 60 mg IV push change to q.8 hours * Continue Mucinex and singular * Continue cardiac monitoring * Respiratory panel negative for influenza a and B, RSV, and COVID * White blood cell count 7.6, proBNP was 371, troponin x4 flat * Patient has 1+ pitting bilateral lower extremity edema, will obtain an echo today as she has not had 1 in our system to review. * Will obtain echocardiogram today 11/24/2023: * patient remained on BiPAP overnight, settings of 14/7 with a backup rate of 20 and 50% FiO2 * ABG this morning showing worsening acidosis, pH 7.298, pCO2 92.8, PO2 87.3, bicarb 44.4. O2 saturation on the ABG was 95.1, base excess is 13.0, oxyhemoglobin 94.6 * increase BiPAP to 16/8 with backup rate of 20 and 50% * will repeat ABG around 2:00 p.m. today * pulmonary consulted for further assistance with controlling her gas exchange * echocardiogram revealed a normal LV function with estimated EF of 70% with grade 1 diastolic dysfunction, mild pulmonary hypertension within estimated pulmonary arterial systolic pressure 43 mmHg , there was a note a 0.5 x 0.5 cm calcification noted on the aortic valve which is less likely vegetation. * Will get Cardiology on board to review echo and manage diastolic congestive heart failure * Lasix 40 mg IV ordered for today. * continue with DuoNebs * Solu-Medrol weaned down to 60 mg IV push b.i.d. * continue IMU status and cardiac monitoring * continue Mucinex and Singulair as scheduled 11/25/23: * Patient was started on AVAPS for overnight use per pulmonology. * ABG showing improvement in her acidosis, pH 7.396, pCO2 78.8, PO2 56.4, bicarb 47.3, O2 saturation 87.7 %, oxyhemoglobin 87.8. * Pulmonology still following * cardiology consulted for echo * Solu-Medrol DC by pulmonology patient was started on prednisone * continue DuoNebs * Stable to move out of IMU to a med surge bed with tele 11/26/2023: * Continue with AVAPS mode BiPAP for at night, she will need this for at home as well. She does not currently have a BiPAP or CPAP at home. Pulmonology is working on getting that for her. * Pulmonology and Cardiology are following * Continue prednisone * Continue DuoNebs * Can DC telemetry * Order placed for home Bipap * Patient will need a home O2 eval prior to discharge. She dropped to 80% with PT today on her 2L NC. 11/27: Home oxygen evaluation completed tod
--- NOTE | 2023-11-27 12:23 | PM.IMPN ---
Progress Note: A&P Assessment and Plan (1) Acute respiratory failure with hypoxia and hypercapnia: Code(s): J96.01 - Acute respiratory failure with hypoxia; J96.02 - Acute respiratory failure with hypercapnia Status: Acute Assessment and Plan: 11/23/2023: Likely secondary to COPD exacerbation Patient presented with an SpO2 of 73-75% on room air, respiratory rate was 26, ABG shown respiratory acidosis with a pCO2 of 77.4, PO2 of 60.3 on 2 L nasal cannula with an oxyhemoglobin of 82.2. Currently 3.5 L nasal cannula Repeat ABG this morning showing worsening acidosis with a pH of 7.298, pCO2 77.9, PO2 58.8, bicarb 37.3, O2 saturation 86.5 on 3.5 L. oxy hemoglobin 86.7. Will start BiPAP 10/5 with a backup rate of 12 and 50%, she will need this continuously until her acidosis corrects Will transfer to the IMU for continuous BiPAP Wean O2 to keep sat greater than 92% Chest x-ray showed minimal pulmonary edema versus atelectasis at the bilateral lung bases CTA of the chest was negative for PE, showed mild emphysema and a small sliding hiatal hernia Patient was given a DuoNeb, 1 L normal saline, and 125 mg IV push Solu-Medrol while in the ED Continue DuoNebs Continue Solu-Medrol 60 mg IV push change to q.8 hours Continue Mucinex and singular Continue cardiac monitoring Respiratory panel negative for influenza a and B, RSV, and COVID White blood cell count 7.6, proBNP was 371, troponin x4 flat Patient has 1+ pitting bilateral lower extremity edema, will obtain an echo today as she has not had 1 in our system to review. Will obtain echocardiogram today 11/24/2023: patient remained on BiPAP overnight, settings of 14/7 with a backup rate of 20 and 50% FiO2 ABG this morning showing worsening acidosis, pH 7.298, pCO2 92.8, PO2 87.3, bicarb 44.4. O2 saturation on the ABG was 95.1, base excess is 13.0, oxyhemoglobin 94.6 increase BiPAP to 16/8 with backup rate of 20 and 50% will repeat ABG around 2:00 p.m. today pulmonary consulted for further assistance with controlling her gas exchange echocardiogram revealed a normal LV function with estimated EF of 70% with grade 1 diastolic dysfunction, mild pulmonary hypertension within estimated pulmonary arterial systolic pressure 43 mmHg , there was a note a 0.5 x 0.5 cm calcification noted on the aortic valve which is less likely vegetation. Will get Cardiology on board to review echo and manage diastolic congestive heart failure Lasix 40 mg IV ordered for today. continue with DuoNebs Solu-Medrol weaned down to 60 mg IV push b.i.d. continue IMU status and cardiac monitoring continue Mucinex and Singulair as scheduled 11/25/23: Patient was started on AVAPS for overnight use per pulmonology. ABG showing improvement in her acidosis, pH 7.396, pCO2 78.8, PO2 56.4, bicarb 47.3, O2 saturation 87.7 %, oxyhemoglobin 87.8. Pulmonology still following cardiology consulted for echo Solu-Medrol DC by pulmonology patient was started on prednisone continue DuoNebs Stable to move out of IMU to a med surge bed with tele 11/26/2023: Continue with AVAPS mode BiPAP for at night, she will need this for at home as well. She does not currently have a BiPAP or CPAP at home. Pulmonology is working on getting that for her. Pulmonology and Cardiology are following Continue prednisone Continue DuoNebs Can DC telemetry Order placed for home Bipap Patient will need a home O2 eval prior to discharge. She dropped to 80% with PT today on her 2L NC. 11/27: Home oxygen evaluation completed today shows patient requires 2 liters/minute at rest and 4 liters/minute with activity Discharge pending availability of AVAPS noninvasive ventilator and home oxygen therapy (2) Chronic obstructive pulmonary disease: Code(s): J44.9 - Chronic obstructive pulmonary disease, unspecified Status: Acute Assessment and Plan: 11/23/2023: COPD exacerbation Does not
--- NOTE | 2023-11-27 15:04 | HOMEO2EVAL ---
Evaluation was performed at [facility] Home Oxygen Evaluation RC: Home Oxygen (O2) Evaluation Start: 11/27/23 15:00 Freq: ONCE Status: Active Protocol: RPE Activity Type Activity Date Activity User E-sign Co-sign Detail Recorded Client Recorded Date Recorded By Document 11/27/23 14:00 [email or web address] [email or web address] 11/27/23 15:02 DJO Document 11/27/23 14:05 [email or web address] 11/27/23 15:02 DJO Document 11/27/23 14:10 [email or web address] 11/27/23 15:02 DJO Document 11/27/23 14:15 [email or web address] 11/27/23 15:02 DJO Document 11/27/23 14:20 [email or web address] 11/27/23 15:02 DJO Document 11/27/23 14:25 [email or web address] 11/27/23 15:02 DJO Document 11/27/23 14:40 [email or web address] [email or web address] 11/27/23 15:02 DJO Document 11/27/23 14:40 [email or web address] [email or web address] 11/27/23 15:02 DJO 11/27/23 11/27/23 11/27/23 14:00 14:05 14:10 Home O2 Evaluation [Oxygen] -Test Phase Resting Resting Resting -Oxygen Delivery Room Air Nasal Cannula Nasal Cannula -Oxygen Flow Rate (L/min) 1 2 [Pulse Oximetry] -Pulse Oximetry (90-100 %) 86 L 87 L 90 [Pulse Rate] -Pulse Rate (60-100 beats/min) 106 H 105 H 104 H [Charges] -Evaluation Charges O2 Evaluation by Pulmonary 11/27/23 11/27/23 11/27/23 14:15 14:20 14:25 Home O2 Evaluation [Oxygen] -Test Phase Exercise Exercise Exercise -Oxygen Delivery Nasal Cannula Nasal Cannula Nasal Cannula -Oxygen Flow Rate (L/min) 2 3 4 [Pulse Oximetry] -Pulse Oximetry (90-100 %) 88 L 87 L 91 [Pulse Rate] -Pulse Rate (60-100 beats/min) 111 H 112 H 109 H [Charges] -Evaluation Charges 11/27/23 11/27/23 14:40 14:40 Home O2 Evaluation [Oxygen] -Test Phase Resting -Oxygen Delivery Nasal Cannula Nasal Cannula -Oxygen Flow Rate (L/min) 2 [Pulse Oximetry] -Pulse Oximetry (90-100 %) 92 [Pulse Rate] -Pulse Rate (60-100 beats/min) 105 H [Charges] -Evaluation Charges
--- NOTE | 2023-11-27 15:23 | PCRCNOTE ---
HOME O2 EVAL COMPLETE. PATIENT REQUIRES 2LPM WITH REST AND 4LPM WITH ACTIVITY. [facility] CALLED . TANK WILL BE TAKEN TO PATIENTS ROOM FOR DISCHARGE.
[2023-11-27] MEDS: rOPINIRole HCL 0.25 MG TABLET PO (20:38)
[2023-11-27] MEDS: amLODIPine BESYLATE 2.5 MG TABLET PO (20:38)
[2023-11-27] MEDS: LOSARTAN POTASSIUM 100 MG TABLET PO (20:38)
[2023-11-27] MEDS: ATORVASTATIN 10 MG TABLET PO (20:38)
[2023-11-28] VITALS (16 sets, daily range): BP systolic 153–165; BP diastolic 66–80; PULSE 87–106; RESP 16–23; TEMP 36.6–37.1; O2SAT 90–96
--- NOTE | 2023-11-28 04:36 | PCRCNOTE ---
Pt did not receive the 0200 updraft treatment due to being on an overnight pulse oximetry study. Treatment to resume @ 0800.
[2023-11-28] MEDS: NAPROXEN SODIUM 220 MG TABLET PO (06:10)
[2023-11-28] MEDS: IPRATROPIUM 0.5 MG/ALBUTEROL SULFATE 2.5 MG AMPUL.NEB 3 ML INHALATION ×3 (07:37→20:40)
--- NOTE | 2023-11-28 08:23 | PM.PNPUL ---
Progress Note: A&P Assessment and Plan (1) Chronic respiratory failure with hypoxia and hypercapnia: Code(s): J96.11 - Chronic respiratory failure with hypoxia; J96.12 - Chronic respiratory failure with hypercapnia Status: Acute (2) Acute respiratory failure with hypoxia and hypercapnia: Code(s): J96.01 - Acute respiratory failure with hypoxia; J96.02 - Acute respiratory failure with hypercapnia Status: Acute (3) Chronic obstructive pulmonary disease: Code(s): J44.9 - Chronic obstructive pulmonary disease, unspecified Status: Acute Assessment and Plan: This 68-year-old woman, diagnosed with COPD and using maintenance bronchodilators like Advair for an extended period, as well as short-acting bronchodilators on an as-needed basis, and currently a smoker, presented with shortness of breath and lower extremity edema persisting for approximately three weeks. She experienced [id number] hypercapnic hypoxemic respiratory failure and appears to be responding well to treatment with nebulized short-acting bronchodilators, steroids, and noninvasive ventilatory support using BiPAP AVAPS. Her latest arterial blood gas analysis showed a normal pH, and the lower extremity edema has resolved. Chest imaging revealed mild emphysematous changes mainly in the apices and a prominent pulmonary artery, while a recent echocardiogram showed mild pulmonary hypertension. Patient tolerated home ventilator support last night. ApneaLink showed significant oxyhemoglobin desaturation on current oxygen flow. Plan: I would increase oxygen to 4 liters/minute at night bleed in the home ventilator. Added Augmentin empiric treatment as she continues to have a sputum production of light yellow color. Will follow along with you. (4) Tobacco abuse: Code(s): Z72.0 - Tobacco use Status: Acute (5) Restless legs: Code(s): G25.81 - Restless legs syndrome Status: Chronic Subjective Date/time seen: 11/28/23 08:23 Interval history: Patient has no new respiratory symptoms. Continues to have sputum production light yellow color. Shortness of breath about a changed over the last 24 hours. Tolerated home ventilator well last night. ApneaLink however showed significant oxyhemoglobin desaturation on current oxygen flow. Ambulating in room. Review of Systems Review of Systems: All systems reviewed & are unremarkable except as noted in HPI and below (HPI and below) Exam Narrative: GENERAL APPEARANCE: Well developed, well nourished, alert and cooperative, and appears to be in no acute distress while on supplemental oxygen SKIN: Inspection of the skin reveals no rashes, ulcerations or petechiae. HEENT: Sclerae anicteric and conjunctivae pink and moist. Extraocular movements were intact and pupils were equal, round, and reactive to light. The oral mucosa, hard and soft palate, tongue and posterior pharynx were normal. NECK: Supple. There was no thyroid enlargement, and no tenderness, or masses were felt. LUNGS: Rhonchi and crackles at bases posteriorly no wheezing CARDIAC: There was a regular rate and rhythm without any murmurs, gallops, rubs. ABDOMEN: Soft and nontender with normal bowel sounds. There was no organomegaly. LYMPH NODES: No lymphadenopathy was appreciated in the neck. EXTREMITIES: No cyanosis, clubbing or edema. NEUROLOGIC: Alert and oriented x 3. Normal affect. Objective Data Vital Signs Vital Signs: Vital Signs - 24 hr 11/27/23 13:57 11/27/23 14:09 11/27/23 14:00 Temperature Pulse Rate 106 H 102 H 106 H Respiratory Rate 18 18 Blood Pressure Pulse Oximetry 86 L Oxygen Delivery Room Air Oxygen Flow Rate Fraction of Inspired Oxygen 11/27/23 14:05 11/27/23 14:10 11/27/23 14:15 Temperature Pulse Rate 105 H 104 H 111 H Respiratory Rate Blood Pressure Pulse Oximetry 87 L 90 88 L Oxygen Delivery Nasal Cannula Nasal Cannula Nasal Cannula Oxygen Flow Rat
[2023-11-28] MEDS: POTASSIUM CHLORIDE 10 MEQ ER TABLET PO (09:11)
[2023-11-28] MEDS: MONTELUKAST SODIUM 10 MG TABLET PO (09:11)
[2023-11-28] MEDS: guaiFENesin 12 HR 600 MG TABCR PO ×2 (09:12→20:27)
[2023-11-28] MEDS: hydroCHLOROthiazide 25 MG TABLET PO (09:12)
[2023-11-28] MEDS: ENOXAPARIN 40 MG/0.4 ML SYRINGE SUB-Q (09:12)
[2023-11-28] MEDS: predniSONE 20 MG TABLET 40 MG PO (09:12)
[2023-11-28] MEDS: buPROPion HCL XL (24 HR) 150 MG TABCR PO (09:12)
[2023-11-28] MEDS: SPIRONOLACTONE 12.5 MG TABLET PO (09:13)
[2023-11-28] MEDS: AMOXICILLIN/CLAVULANATE K 875-125 MG TAB 1 TABLET PO ×2 (10:25→20:27)
--- NOTE | 2023-11-28 12:41 | P.DS_ITS ---
DS: Summary Time Spent with Patient Time attestation: Total time spent providing and/or coordinating discharge services: Discharge Plan Discharge Consulting providers: Gulshan Dillon; Santana Carpenter Patient Disposition: Home Health Service Discharge Instructions: Per Care Coordination. Patient to have [facility] for RN/PT/OT eval and treat [phone]. They will contact patient to schedule first visit. Patient Instructions: Antibiotic Form, Pain Management (DC) Stand Alone Forms: General Discharge Information Discharge Medications: No Action albuterol sulfate 2.5 mg /3 mL (0.083 %) solution for nebulization 2.5 mg inhalation Q4-6H PRN (Reason: shortness of breath or wheezing) Qty: 90 0RF naproxen sodium 220 mg Tablet 220 mg PO BID PRN (Reason: Pain) fluticasone propion-salmeterol [Advair Diskus] 500-50 mcg/dose blister with device 1 inh INHALATION BID guaifenesin [Mucinex] 600 mg Tablet Extended Release 12hr 600 mg PO BID potassium chloride 10 mEq capsule, extended release 10 meq PO QAM atorvastatin 10 mg tablet 10 mg PO QHS amlodipine 2.5 mg tablet 2.5 mg PO QHS ropinirole 0.25 mg tablet 0.25 mg PO QHS montelukast 10 mg tablet 10 mg PO QAM hydrochlorothiazide 25 mg tablet 25 mg PO QAM losartan 100 mg tablet 100 mg PO QHS albuterol sulfate [ProAir HFA] 90 mcg/actuation HFA aerosol inhaler 1 puff INHALATION Q4H PRN (Reason: shortness of breath or wheezing) Qty: 1 6RF bupropion HCl [Wellbutrin XL] 150 mg tablet extended release 24 hr 150 mg PO QAM Qty: 30 3RF Date of admission: 11/22/23 18:52 Primary Care Provider: Pili Huffman Admitting Provider: Scarlett Cordova Attending physician on admission: Scarlett Cordova Condition: Serious
--- NOTE | 2023-11-28 12:47 | PC.NURSE ---
On 11/28/23, the student, [Darian Morrison], provided care and completed [facility] documentation on this patient. I have reviewed the student's documentation and agree with the findings.
--- NOTE | 2023-11-28 14:07 | PCRCNOTE ---
TRILOGY IN PT ROOM. O2 EVAL COMPLETE.
[2023-11-28 15:36] LABS: Alveolar/Arterial O2 Gradient 60.6 mmHg; Base Excess ABG 14.8 mEq/l (+/-2.0); Fractional Inspired Oxygen 28 %; HCO3 ABG 43.5 mEq/l (22.0-26.0); Oxygen Content ABG 20.8 %vol (16.0-22.0); Oxygen Saturation ABG 89.4 % (95.0-100.0); Oxyhemoglobin 89.2 % THb (90.0-100.0); PO2 ABG 57.7 mmHg (80.0-100.0); PO2 FiO2 Ratio Arterial Blood 2.06 %; Total Hemoglobin 16.6 g/dL (12.0-18.0); pH ABG 7.418 (7.350-7.450)
[2023-11-28 15:38] LABS: Device NASAL CANNULA; Modified Allen's Test Pass; PCO2 ABG 68.9 mmHg (35.0-45.0); Site Drawn LEFT RADIAL
[2023-11-28] MEDS: amLODIPine BESYLATE 2.5 MG TABLET PO (20:26)
[2023-11-28] MEDS: ATORVASTATIN 10 MG TABLET PO (20:27)
[2023-11-28] MEDS: rOPINIRole HCL 0.25 MG TABLET PO (20:27)
[2023-11-28] MEDS: LOSARTAN POTASSIUM 100 MG TABLET PO (20:27)
[2023-11-29] VITALS (13 sets, daily range): BP systolic 118–157; BP diastolic 65–77; PULSE 80–100; RESP 16–22; TEMP 36–37.2; O2SAT 90–94
[2023-11-29] MEDS: IPRATROPIUM 0.5 MG/ALBUTEROL SULFATE 2.5 MG AMPUL.NEB 3 ML INHALATION ×4 (02:28→21:06)
--- NOTE | 2023-11-29 06:41 | P.DS_ITS ---
DS: Summary Time Spent with Patient Time attestation: Total time spent providing and/or coordinating discharge services: DS: Data Data Completed and Pending Labs on day of discharge: Labs from last 24 hours 11/28/23 15:30 Puncture Site Left radial ABG pH 7.418 ABG pCO2 68.9 H* ABG pO2 57.7 L ABG PO2/FiO2 Ratio 2.06 ABG HCO3 43.5 H ABG O2 Saturation 89.4 L ABG O2 Content 20.8 ABG Base Excess 14.8 A-a Gradient 60.6 Oxyhemoglobin 89.2 L Total Hemoglobin 16.6 O2 Delivery Device Nasal cannula O2 Liters/Min 2.0 FiO2 28 Discharge Plan Discharge Consulting providers: Gulshan Dillon; Santana Carpenter Patient Disposition: Home Health Service Discharge Instructions: Per Care Coordination. Patient to have [facility] for RN/PT/OT eval and treat [phone]. They will contact patient to schedule first visit. Patient Instructions: Antibiotic Form, Pain Management (DC) Stand Alone Forms: General Discharge Information Discharge Medications: No Action albuterol sulfate 2.5 mg /3 mL (0.083 %) solution for nebulization 2.5 mg inhalation Q4-6H PRN (Reason: shortness of breath or wheezing) Qty: 90 0RF naproxen sodium 220 mg Tablet 220 mg PO BID PRN (Reason: Pain) fluticasone propion-salmeterol [Advair Diskus] 500-50 mcg/dose blister with device 1 inh INHALATION BID guaifenesin [Mucinex] 600 mg Tablet Extended Release 12hr 600 mg PO BID potassium chloride 10 mEq capsule, extended release 10 meq PO QAM atorvastatin 10 mg tablet 10 mg PO QHS amlodipine 2.5 mg tablet 2.5 mg PO QHS ropinirole 0.25 mg tablet 0.25 mg PO QHS montelukast 10 mg tablet 10 mg PO QAM hydrochlorothiazide 25 mg tablet 25 mg PO QAM losartan 100 mg tablet 100 mg PO QHS albuterol sulfate [ProAir HFA] 90 mcg/actuation HFA aerosol inhaler 1 puff INHALATION Q4H PRN (Reason: shortness of breath or wheezing) Qty: 1 6RF bupropion HCl [Wellbutrin XL] 150 mg tablet extended release 24 hr 150 mg PO QAM Qty: 30 3RF Date of admission: 11/22/23 18:52 Primary Care Provider: Pili Huffman Admitting Provider: Scarlett Cordova Attending physician on admission: Scarlett Cordova Condition: Serious
[2023-11-29 08:55] LABS: Alpha-1-Antitrypsin, QN 168 mg/dL (83-199)
[2023-11-29] MEDS: predniSONE 20 MG TABLET 40 MG PO (09:01)
[2023-11-29] MEDS: MONTELUKAST SODIUM 10 MG TABLET PO (09:02)
[2023-11-29] MEDS: guaiFENesin 12 HR 600 MG TABCR PO ×2 (09:02→21:45)
[2023-11-29] MEDS: ENOXAPARIN 40 MG/0.4 ML SYRINGE SUB-Q (09:02)
[2023-11-29] MEDS: AMOXICILLIN/CLAVULANATE K 875-125 MG TAB 1 TABLET PO ×2 (09:02→21:45)
[2023-11-29] MEDS: buPROPion HCL XL (24 HR) 150 MG TABCR PO (09:02)
[2023-11-29] MEDS: hydroCHLOROthiazide 25 MG TABLET PO (09:02)
[2023-11-29] MEDS: POTASSIUM CHLORIDE 10 MEQ ER TABLET PO (09:03)
--- NOTE | 2023-11-29 09:11 | PM.PNPUL ---
Progress Note: A&P Assessment and Plan (1) Chronic respiratory failure with hypoxia and hypercapnia: Code(s): J96.11 - Chronic respiratory failure with hypoxia; J96.12 - Chronic respiratory failure with hypercapnia Status: Acute (2) Acute respiratory failure with hypoxia and hypercapnia: Code(s): J96.01 - Acute respiratory failure with hypoxia; J96.02 - Acute respiratory failure with hypercapnia Status: Acute (3) Chronic obstructive pulmonary disease: Code(s): J44.9 - Chronic obstructive pulmonary disease, unspecified Status: Acute Assessment and Plan: This 68-year-old woman, diagnosed with COPD and using maintenance bronchodilators like Advair for an extended period, as well as short-acting bronchodilators on an as-needed basis, and currently a smoker, presented with shortness of breath and lower extremity edema persisting for approximately three weeks. She experienced [id number] hypercapnic hypoxemic respiratory failure and appears to be responding well to treatment with nebulized short-acting bronchodilators, steroids, and noninvasive ventilatory support using BiPAP AVAPS. Her latest arterial blood gas analysis showed a normal pH, and the lower extremity edema has resolved. Chest imaging revealed mild emphysematous changes mainly in the apices and a prominent pulmonary artery, while a recent echocardiogram showed mild pulmonary hypertension. Patient has been tolerating home ventilator well at night. Currently on 4 L oxygen at night due to low oxyhemoglobin saturation. Plan: Respiratory status unchanged over the last 48 hours. Patient continues to have shortness of breath and sputum production of light yellow color. Currently on antibiotics. Will repeat apnea link tonight. Patient is not ready for discharge as yet. (4) Tobacco abuse: Code(s): Z72.0 - Tobacco use Status: Acute (5) Restless legs: Code(s): G25.81 - Restless legs syndrome Status: Chronic Subjective Date/time seen: 11/29/23 09:11 Interval history: Patient has no new respiratory symptoms. She continues to have chest congestion with sputum production of light yellow phlegm. She remains on supplemental oxygen via nasal cannula during the day. Ambulating in room. Tolerating home ventilator well. Oxygen increased to 4 liters/minute at night due to low oxyhemoglobin saturation on the home vent. Review of Systems Review of Systems: All systems reviewed & are unremarkable except as noted in HPI and below (HPI and below) Exam Narrative: GENERAL APPEARANCE: Well developed, well nourished, alert and cooperative, and appears to be in no acute distress while on supplemental oxygen SKIN: Inspection of the skin reveals no rashes, ulcerations or petechiae. HEENT: Sclerae anicteric and conjunctivae pink and moist. Extraocular movements were intact and pupils were equal, round, and reactive to light. The oral mucosa, hard and soft palate, tongue and posterior pharynx were normal. NECK: Supple. There was no thyroid enlargement, and no tenderness, or masses were felt. LUNGS: Rhonchi and crackles at bases posteriorly no wheezing CARDIAC: There was a regular rate and rhythm without any murmurs, gallops, rubs. ABDOMEN: Soft and nontender with normal bowel sounds. There was no organomegaly. LYMPH NODES: No lymphadenopathy was appreciated in the neck. EXTREMITIES: No cyanosis, clubbing or edema. NEUROLOGIC: Alert and oriented x 3. Normal affect. Objective Data Vital Signs Vital Signs: Vital Signs - 24 hr 11/28/23 09:30 11/28/23 09:35 11/28/23 11:49 Temperature Pulse Rate 101 H Respiratory Rate Blood Pressure 153/66 H Pulse Oximetry 92 92 92 Oxygen Delivery Nasal Cannula Nasal Cannula Oxygen Flow Rate 2 2 11/28/23 13:30 11/28/23 13:40 11/28/23 14:07 Temperature 36.9 C Pulse Rate 87 90 106 H Respiratory Rate 20 20 16 Blood Pressure 157/73 H Pulse Oximetry 93 Oxygen D
--- NOTE | 2023-11-29 10:11 | PM.IMPN ---
Progress Note: A&P Assessment and Plan (1) Acute respiratory failure with hypoxia and hypercapnia: Code(s): J96.01 - Acute respiratory failure with hypoxia; J96.02 - Acute respiratory failure with hypercapnia Status: Acute Assessment and Plan: 11/23/2023: Likely secondary to COPD exacerbation Patient presented with an SpO2 of 73-75% on room air, respiratory rate was 26, ABG shown respiratory acidosis with a pCO2 of 77.4, PO2 of 60.3 on 2 L nasal cannula with an oxyhemoglobin of 82.2. Currently 3.5 L nasal cannula Repeat ABG this morning showing worsening acidosis with a pH of 7.298, pCO2 77.9, PO2 58.8, bicarb 37.3, O2 saturation 86.5 on 3.5 L. oxy hemoglobin 86.7. Will start BiPAP 10/5 with a backup rate of 12 and 50%, she will need this continuously until her acidosis corrects Will transfer to the IMU for continuous BiPAP Wean O2 to keep sat greater than 92% Chest x-ray showed minimal pulmonary edema versus atelectasis at the bilateral lung bases CTA of the chest was negative for PE, showed mild emphysema and a small sliding hiatal hernia Patient was given a DuoNeb, 1 L normal saline, and 125 mg IV push Solu-Medrol while in the ED Continue DuoNebs Continue Solu-Medrol 60 mg IV push change to q.8 hours Continue Mucinex and singular Continue cardiac monitoring Respiratory panel negative for influenza a and B, RSV, and COVID White blood cell count 7.6, proBNP was 371, troponin x4 flat Patient has 1+ pitting bilateral lower extremity edema, will obtain an echo today as she has not had 1 in our system to review. Will obtain echocardiogram today 11/24/2023: patient remained on BiPAP overnight, settings of 14/7 with a backup rate of 20 and 50% FiO2 ABG this morning showing worsening acidosis, pH 7.298, pCO2 92.8, PO2 87.3, bicarb 44.4. O2 saturation on the ABG was 95.1, base excess is 13.0, oxyhemoglobin 94.6 increase BiPAP to 16/8 with backup rate of 20 and 50% will repeat ABG around 2:00 p.m. today pulmonary consulted for further assistance with controlling her gas exchange echocardiogram revealed a normal LV function with estimated EF of 70% with grade 1 diastolic dysfunction, mild pulmonary hypertension within estimated pulmonary arterial systolic pressure 43 mmHg , there was a note a 0.5 x 0.5 cm calcification noted on the aortic valve which is less likely vegetation. Will get Cardiology on board to review echo and manage diastolic congestive heart failure Lasix 40 mg IV ordered for today. continue with DuoNebs Solu-Medrol weaned down to 60 mg IV push b.i.d. continue IMU status and cardiac monitoring continue Mucinex and Singulair as scheduled 11/25/23: Patient was started on AVAPS for overnight use per pulmonology. ABG showing improvement in her acidosis, pH 7.396, pCO2 78.8, PO2 56.4, bicarb 47.3, O2 saturation 87.7 %, oxyhemoglobin 87.8. Pulmonology still following cardiology consulted for echo Solu-Medrol DC by pulmonology patient was started on prednisone continue DuoNebs Stable to move out of IMU to a med surge bed with tele 11/26/2023: Continue with AVAPS mode BiPAP for at night, she will need this for at home as well. She does not currently have a BiPAP or CPAP at home. Pulmonology is working on getting that for her. Pulmonology and Cardiology are following Continue prednisone Continue DuoNebs Can DC telemetry Order placed for home Bipap Patient will need a home O2 eval prior to discharge. She dropped to 80% with PT today on her 2L NC. 11/27: Home oxygen evaluation completed today shows patient requires 2 liters/minute at rest and 4 liters/minute with activity Discharge pending availability of AVAPS noninvasive ventilator and home oxygen therapy : discharge tomorrow at noon when family is available to coordinate all equipment and new set up as well as transport patient 11/28: pulmonology does not want patient to discharge yet. It appears that oxygen m
--- NOTE | 2023-11-29 10:45 | PCNWS ---
Weekly nutritional screen. Patient is tolerating current diet with adequate intake. No weight loss reported. No nutritional needs at this time.
[2023-11-29] MEDS: SPIRONOLACTONE 12.5 MG TABLET PO (10:50)
[2023-11-29 16:25] LABS: Basophils Percent Auto 0.1 % (0.2-1.2); Hematocrit 48.4 % (37.0-47.0); Immature Granulocyte Absolute 0.04 K/mm3 (0.00-0.031); Immature Granulocyte Percent A 0.4 % (0-0.5); Lymphocytes Absolute Auto 0.39 K/mm3 (0.9-3.2); Lymphocytes Percent Auto 3.5 % (18.3-44.2); Mean Corpuscular Volume 87.2 fl (80-100); Mean Platelet Volume 10.8 fl (7.4-10.4); Monocytes Absolute Auto 0.3 K/mm3 (0.1-0.6); Monocytes Percent Auto 2.6 % (2.6-8.5); Neutrophils Absolute Auto 10.3 K/mm3 (1.3-6.7); Neutrophils Percent Auto 93.4 % (45.5-73.1); Platelet Count Result 227 k/mm3 (150-375); Red Blood Count 5.55 M/mm3 (4.2-5.4); Red Cell Distribution Width 15.3 % (11.5-14.5)
[2023-11-29 16:43] LABS: Blood Urea Nitrogen 24 mg/dL (7-17); Calcium 9.8 mg/dL (8.4-10.2); Carbon Dioxide > 40 mmol/L (22-30); Chloride 84 mmol/L (98-107); Estimated CRCL calculation 58 ml/min; Estimated Glomerular Filt Rate > 60; Glucose 151 mg/dL (65-110); Magnesium 1.9 mg/dL (1.6-2.3); Potassium 4.4 mmol/L (3.4-5.0); Sodium 128 mmol/L (137-145)
[2023-11-29] MEDS: amLODIPine BESYLATE 2.5 MG TABLET PO (21:45)
[2023-11-29] MEDS: LOSARTAN POTASSIUM 100 MG TABLET PO (21:45)
[2023-11-29] MEDS: rOPINIRole HCL 0.25 MG TABLET PO (21:45)
[2023-11-29] MEDS: ATORVASTATIN 10 MG TABLET PO (21:45)
[2023-11-30 05:22] VITALS: BP 151/77; PULSE 87; RESP 18; TEMP 36.9; O2SAT 90
[2023-11-30] MEDS: NAPROXEN SODIUM 220 MG TABLET PO (05:57)
[2023-11-30 07:40] VITALS: PULSE 83; RESP 18
[2023-11-30] MEDS: IPRATROPIUM 0.5 MG/ALBUTEROL SULFATE 2.5 MG AMPUL.NEB 3 ML INHALATION (07:47)
[2023-11-30 07:48] VITALS: O2SAT 95
[2023-11-30 08:49] VITALS: O2SAT 95
[2023-11-30] MEDS: predniSONE 20 MG TABLET 40 MG PO (08:53)
[2023-11-30] MEDS: AMOXICILLIN/CLAVULANATE K 875-125 MG TAB 1 TABLET PO (08:54)
[2023-11-30] MEDS: buPROPion HCL XL (24 HR) 150 MG TABCR PO (08:54)
[2023-11-30] MEDS: ENOXAPARIN 40 MG/0.4 ML SYRINGE SUB-Q (08:54)
[2023-11-30] MEDS: hydroCHLOROthiazide 25 MG TABLET PO (08:54)
[2023-11-30] MEDS: MONTELUKAST SODIUM 10 MG TABLET PO (08:54)
[2023-11-30] MEDS: guaiFENesin 12 HR 600 MG TABCR PO (08:54)
[2023-11-30] MEDS: SPIRONOLACTONE 12.5 MG TABLET PO (08:57)
[2023-11-30] MEDS: POTASSIUM CHLORIDE 10 MEQ ER TABLET PO (11:46)
--- NOTE | 2023-11-30 13:07 | PM.DS ---
DS: Admitting Diagnosis Discharge Date 11/30/2023 Admitting Diagnosis COPD, tobacco abuse, mixed hyperlipidemia, restless leg, degenerative disc disease cervical, essential hypertension DS: Discharge Diagnosis Discharge Diagnosis (1) Acute respiratory failure with hypoxia and hypercapnia: Code(s): J96.01 - Acute respiratory failure with hypoxia; J96.02 - Acute respiratory failure with hypercapnia Status: Acute (2) Chronic obstructive pulmonary disease: Code(s): J44.9 - Chronic obstructive pulmonary disease, unspecified Status: Acute (3) Diastolic congestive heart failure: Code(s): I50.30 - Unspecified diastolic (congestive) heart failure Status: Acute (4) Tobacco abuse: Code(s): Z72.0 - Tobacco use Status: Acute (5) Essential hypertension: Code(s): I10 - Essential (primary) hypertension Status: Chronic (6) Mixed hyperlipidemia: Code(s): E78.2 - Mixed hyperlipidemia Status: Chronic (7) Depression: Qualifiers: Depression Type: major depressive disorder Major depression recurrence: single episode Active/Remission status: currently active Major depression episode severity: mild Qualified Code(s): F32.0 - Major depressive disorder, single episode, mild Code(s): F32.9 - Major depressive disorder, single episode, unspecified Status: Chronic (8) Restless legs: Code(s): G25.81 - Restless legs syndrome Status: Chronic DS: Summary Hospital Course Hospital Course: this is a 68-year-old female patient with a history of COPD hypertension depression hyperlipidemia restless leg who was admitted to the hospital with shortness of breath hypoxia. Patient had noted home pulse oximeter so reading in the 70s and made an appointment to see primary care which she was only 76% on room air on arrival. Patient was immediately sent to the emergency department on 4 L nasal cannula. During workup patient found to have significantly elevated pCO2 and low PaO2 on ABG. She also had findings of diastolic congestive heart failure and was started on diuretics after cardiology consult. Pulmonology consulted on patient and she was tried on BiPAP but did not improve and eventually got better use of AVAPS. Home ventilator was ordered and delivered. Patient wore this at the hospital and her work of breathing and mentation improved. However, her oxygenation was normal optimized. Home O2 evaluation yielded that she required 2 liters/minute at rest and 4 liters/minute with activity. Overnight with use of AVAPS on 2 liters/minute she desaturated so we increase this to 4 liters/minute bleed in overnight last night and repeated ApneaLink a which showed that she still spent a little too much time less than 88%. Spoke with Dr. Dillon with pulmonology who advised to have patient follow-up in clinic and use 5 liters/minute bleed in at night. This information was passed to patient and family. She is also going home with some Augmentin due to productive cough as directed by Pulmonology. Prescription for nebulizer treatments also sent to preferred pharmacy. While hospitalized patient was noted to hyponatremia. She will be given prescription for metabolic panel in 5-7 days follow-up. Time spent discussing smoking cessation with patient: more than 10 minutes Status at Discharge Cognitive/behavioral status at discharge: Awake alert oriented and pleasant. Functional status at discharge: uses cane/walker Overall status at discharge: patient is progressing back to baseline Time Spent with Patient Time attestation: Total time spent providing and/or coordinating discharge services: 45 minutes Time spent: Greater than 30 minutes Exam Narrative: GENERAL: Well-appearing, well-nourished, and in no acute distress. Supplemental oxygenation and place 2 liters/minute nasal cannula HEAD: Normocephalic, atraumatic. ENT:? Mucous membranes moist. CHEST: mostly akiko
== END 2023-11-30 14:43 | disposition home health service (06) | DRG 190 ==
LOC: ANHED 15:47 → ANH3MED 20:49 → ANHIMU 11-23 11:56 → ANH2MED 11-25 22:41
PROVIDERS: Emergency Medicine; Internal Medicine Infectious Disease; Internal Medicine Pulmonary Disease; Nurse Practitioner Acute Care; Admitting Provider Hospitalist; Emergency Provider Emergency Medicine; PCP Family Medicine; Visit Provider Nurse Practitioner
DX: J43.2 Centrilobular emphysema (principal); I50.33 Acute on chronic diastolic (congestive) heart failure; J96.21 Acute and chronic respiratory failure with hypoxia; J96.22 Acute and chronic respiratory failure with hypercapnia; E53.8 Deficiency of other specified B group vitamins; E78.2 Mixed hyperlipidemia; E55.9 Vitamin D deficiency, unspecified; F32.A Depression, unspecified; F17.210 Nicotine dependence, cigarettes, uncomplicated; G25.81 Restless legs syndrome; I11.0 Hypertensive heart disease with heart failure; Z20.822 Contact with and (suspected) exposure to COVID-19
CPT/HCPCS: 36415; 36600; 71045; 71275; 80048; 80053; 82103; 82104; 82375; 82805; 83050; 83735; 83880; 84484; 85025; 85048; 85610; 85730; 87637; 93005; 94002; 94003; 94618; 94640; 94762; 97161; 97165; 97530; 99285; A9270; C8929; J1650; J1940; J2930; J7030; J7512; Q9957; Q9967

== ENCOUNTER 2023-12-06 13:19 | Outpatient (NON) | payer MEDICARE, OTHER, SELFPAY ==
[2023-12-06 14:16] LABS: Anion Gap 4 mmol/L (8-16); Blood Urea Nitrogen 12 mg/dL (7-17); Calcium 9.7 mg/dL (8.4-10.2); Carbon Dioxide 37 mmol/L (22-30); Chloride 90 mmol/L (98-107); Estimated Glomerular Filt Rate > 60; Glucose 92 mg/dL (65-110); Potassium 4.1 mmol/L (3.4-5.0); Sodium 131 mmol/L (137-145)
== END 2023-12-06 13:20 | disposition home or self-care (01) ==
PROVIDERS: PCP Family Medicine; Visit Provider Physician Assistant
DX: E87.1 Hypo-osmolality and hyponatremia (principal); J96.11 Chronic respiratory failure with hypoxia; J96.12 Chronic respiratory failure with hypercapnia
CPT/HCPCS: 80048

== ENCOUNTER 2023-12-18 13:16 | Outpatient (NON) | payer MEDICARE, OTHER, SELFPAY ==
[2023-12-18 19:17] LABS: Anion Gap 7 mmol/L (8-16); Blood Urea Nitrogen 14 mg/dL (7-17); Carbon Dioxide 35 mmol/L (22-30); Chloride 89 mmol/L (98-107); Estimated Glomerular Filt Rate > 60; Glucose 80 mg/dL (65-110); Potassium 4.2 mmol/L (3.4-5.0); Sodium 131 mmol/L (137-145)
== END 2023-12-18 13:17 | disposition home or self-care (01) ==
LOC: HOME HLTH 13:19
PROVIDERS: PCP Family Medicine; Visit Provider Family Medicine
DX: J96.02 Acute respiratory failure with hypercapnia (principal)
CPT/HCPCS: 80048

== ENCOUNTER 2023-12-31 13:47 | Outpatient (NON) | payer MEDICARE, OTHER, SELFPAY ==
[2023-12-31 14:48] LABS: Anion Gap 0 mmol/L (4-12); Blood Urea Nitrogen 11 mg/dL (7-17); Calcium 9.8 mg/dL (8.4-10.2); Carbon Dioxide 39 mmol/L (22-30); Chloride 92 mmol/L (98-107); Estimated Glomerular Filt Rate > 60; Glucose 86 mg/dL (65-110); Potassium 4.2 mmol/L (3.4-5.0); Sodium 131 mmol/L (137-145)
== END 2023-12-31 13:48 | disposition home or self-care (01) ==
PROVIDERS: PCP Family Medicine; Visit Provider Family Medicine
DX: E87.1 Hypo-osmolality and hyponatremia (principal); J44.1 Chronic obstructive pulmonary disease with (acute) exacerbation; J43.2 Centrilobular emphysema; J96.21 Acute and chronic respiratory failure with hypoxia; J96.22 Acute and chronic respiratory failure with hypercapnia
CPT/HCPCS: 80048

== ENCOUNTER 2024-01-14 14:24 | Outpatient (CLI) | payer MEDICARE, OTHER, SELFPAY ==
[2024-01-14 15:07] LABS: Sodium Urine Random 100 meq/L
[2024-01-14 15:35] LABS: Anion Gap 5 mmol/L (4-12); Blood Urea Nitrogen 15 mg/dL (7-17); Calcium 9.6 mg/dL (8.4-10.2); Carbon Dioxide 31 mmol/L (22-30); Chloride 96 mmol/L (98-107); Estimated Glomerular Filt Rate > 60; Glucose 108 mg/dL (65-110); Potassium 4.2 mmol/L (3.4-5.0); Sodium 132 mmol/L (137-145)
[2024-01-14 18:05] LABS: Cortisol Random 5.96 ug/dL
[2024-01-16 14:49] LABS: Osmolality, Urine 477 mOsm/kg (50-1200)
== END 2024-01-14 14:25 | disposition home or self-care (01) ==
LOC: ANHLAB 14:28
PROVIDERS: PCP Family Medicine; Visit Provider Family Medicine
DX: E87.1 Hypo-osmolality and hyponatremia (principal)
CPT/HCPCS: 36415; 80048; 82533; 83930; 83935; 84300

== ENCOUNTER 2024-02-05 10:18 | Outpatient (CLI) | payer MEDICARE, OTHER, SELFPAY ==
[2024-02-05 10:10] VITALS: PULSE 87; O2SAT 93
[2024-02-05 10:20] VITALS: PULSE 98; O2SAT 86
[2024-02-05 10:25] VITALS: PULSE 95; O2SAT 87
[2024-02-05 10:30] VITALS: PULSE 94; O2SAT 90
[2024-02-05 10:45] VITALS: PULSE 85; O2SAT 92
--- NOTE | 2024-02-05 10:59 | HOMEO2EVAL ---
Evaluation was performed at [facility] Home Oxygen Evaluation RC: Home Oxygen (O2) Evaluation Start: 02/05/24 10:50 Freq: Status: Active Protocol: RPE Activity Type Activity Date Activity User E-sign Co-sign Detail Recorded Client Recorded Date Recorded By Document 02/05/24 10:10 PKH [email or web address] 02/05/24 10:59 PKH Document 02/05/24 10:20 PKH [email or web address] 02/05/24 10:59 PKH Document 02/05/24 10:25 PKH [email or web address] 02/05/24 10:59 PKH Document 02/05/24 10:30 PK [email or web address] 02/05/24 10:59 PKH Document 02/05/24 10:45 PK [email or web address] 02/05/24 10:59 PKH 02/05/24 02/05/24 02/05/24 10:10 10:20 10:25 Home O2 Evaluation [Oxygen] -Test Phase Resting Exercise Exercise -Oxygen Delivery Room Air Room Air Nasal Cannula -Oxygen Flow Rate (L/min) 1 [Pulse Oximetry] -Pulse Oximetry (90-100 %) 93 86 L 87 L [Pulse Rate] -Pulse Rate (60-100 beats/min) 87 98 95 [Charges] -Evaluation Charges O2 Evaluation by Pulmonary 02/05/24 02/05/24 10:30 10:45 Home O2 Evaluation [Oxygen] -Test Phase Exercise Resting -Oxygen Delivery Nasal Cannula Room Air -Oxygen Flow Rate (L/min) 2 [Pulse Oximetry] -Pulse Oximetry (90-100 %) 90 92 [Pulse Rate] -Pulse Rate (60-100 beats/min) 94 85 [Charges] -Evaluation Charges
--- NOTE | 2024-02-05 12:47 | WPDPFTINT ---
PFT Procedure Performed PFT Procedure Performed Spirometry with Pre/Post Bronchodilator Diffusing Cap (DLCO) Flow Vol Loop Spirometry w/o Bronchodil PFT Interpretation Lung volumes were not measured as patient was unable to perform the necessary maneuvers. Spirometry showed diminished expiratory flow rates and a diminished FEV1 to FVC ratio of 45%, consistent with obstructive airway disease. Following administration of a bronchodilator there was no significant increase in the expiratory flow rates. The flow-volume loop is consistent with a severe emphysema. Lung diffusion capacity is moderately reduced at 46% predicted. The diminished lung diffusion capacity coupled with a diminished alveolar volume and a normal DLCO/VA ratio indicates loss of alveolar capillary structure as seen in emphysema. Impression: Moderately severe obstructive airway disease with no response to bronchodilators on this testing. Moderate reduction in lung diffusion capacity.
== END 2024-02-05 10:19 | disposition home or self-care (01) ==
LOC: ANHPFT 10:18
PROVIDERS: PCP Family Medicine; Visit Provider Internal Medicine Pulmonary Disease
DX: R06.02 Shortness of breath (principal); R94.2 Abnormal results of pulmonary function studies
CPT/HCPCS: 94060; 94618; 94726; 94729

== ENCOUNTER 2024-02-06 11:13 | Outpatient (CLI) | payer MEDICARE, OTHER, SELFPAY ==
[2024-02-06 11:38] LABS: Basophils Percent Auto 0.5 % (0.2-1.2); Eosinophils Absolute Auto 0.2 K/mm3 (0-0.3); Eosinophils Percent Auto 2.8 % (0-4.4); Hematocrit 42.5 % (37.0-47.0); Hemoglobin 13.6 g/dL (12.0-15.0); Immature Granulocyte Absolute 0.01 K/mm3 (0.00-0.031); Immature Granulocyte Percent A 0.1 % (0-0.5); Lymphocytes Absolute Auto 1.85 K/mm3 (0.9-3.2); Lymphocytes Percent Auto 23.7 % (18.3-44.2); Mean Corpuscular Hemoglobin 27.7 pg (26-34); Mean Corpuscular Volume 86.6 fl (80-100); Mean Platelet Volume 9.5 fl (7.4-10.4); Monocytes Absolute Auto 0.6 K/mm3 (0.1-0.6); Monocytes Percent Auto 7.8 % (2.6-8.5); Neutrophils Absolute Auto 5.1 K/mm3 (1.3-6.7); Neutrophils Percent Auto 65.1 % (45.5-73.1); Platelet Count Result 265 k/mm3 (150-375); Red Blood Count 4.91 M/mm3 (4.2-5.4); Red Cell Distribution Width 21.3 % (11.5-14.5); White Blood Count 7.8 K/mm3 (4.5-10.0)
[2024-02-06 11:58] LABS: Alanine Aminotransferase 25 U/L (6-35); Albumin Level 4.1 g/dL (3.5-5.1); Alkaline Phosphatase 83 U/L (38-126); Anion Gap 3 mmol/L (4-12); Aspartate Amino Transferase 24 U/L (14-36); Bilirubin,Total 0.7 mg/dL (0.2-1.3); Blood Urea Nitrogen 8 mg/dL (7-17); Calcium 9.9 mg/dL (8.4-10.2); Carbon Dioxide 36 mmol/L (22-30); Chloride 95 mmol/L (98-107); Cholesterol 173 mg/dL (0-200); Estimated Glomerular Filt Rate > 60; Glucose 94 mg/dL (65-110); HDL Direct 60 mg/dL; Potassium 4.2 mmol/L (3.4-5.0); Sodium 134 mmol/L (137-145); Triglycerides 84 mg/dL (<150)
[2024-02-06 12:09] LABS: LDL Cholesterol Direct 95 mg/dL
== END 2024-02-06 11:14 | disposition home or self-care (01) ==
LOC: ANHLAB 11:17
PROVIDERS: PCP Family Medicine; Visit Provider Family Medicine
DX: E87.1 Hypo-osmolality and hyponatremia (principal); R53.83 Other fatigue; E78.2 Mixed hyperlipidemia
CPT/HCPCS: 36415; 80048; 80061; 80076; 84443; 85025

== ENCOUNTER 2024-03-12 08:13 | Outpatient (CLI) | payer MEDICARE, OTHER, SELFPAY ==
--- NOTE | 2024-03-12 15:12 | WPDSIXMINUTE ---
Six Minute Walk Procedure Procedure Performed Pulmonary Stress Test (6 min walk) Six Minute Walk Six Minute Walk: This is a 6 minute walk test. The test was performed and interpreted in accordance with the 2014 ERS/ATS task force guidelines. Findings: The patient's resting room air oxygen saturation measured by pulse oximetry was 98% and heart rate was 76 bpm. Patient ambulated for 366 meters and oxygen saturation remained 91 to 96%. Heart rate at the end of the study was 96 bpm. The patient did not qualify for supplemental oxygen at rest or with ambulation. There are no prior studies for comparison.
== END 2024-03-12 08:14 | disposition home or self-care (01) ==
LOC: ANHPFT 08:14
PROVIDERS: PCP Family Medicine; Visit Provider Internal Medicine Pulmonary Disease
DX: J44.9 Chronic obstructive pulmonary disease, unspecified (principal)
CPT/HCPCS: 94618

== ENCOUNTER 2024-03-25 14:49 | Outpatient (CLI) | payer MEDICARE, OTHER, SELFPAY ==
[2024-03-25 15:58] LABS: Anion Gap 6 mmol/L (4-12); Blood Urea Nitrogen 9 mg/dL (7-17); Carbon Dioxide 35 mmol/L (22-30); Chloride 98 mmol/L (98-107); Estimated Glomerular Filt Rate > 60; Glucose 124 mg/dL (65-110); Sodium 139 mmol/L (137-145)
== END 2024-03-25 14:50 | disposition home or self-care (01) ==
LOC: ANHLAB 14:51
PROVIDERS: PCP Family Medicine; Visit Provider Family Medicine
DX: E87.1 Hypo-osmolality and hyponatremia (principal)
CPT/HCPCS: 36415; 80048

== ENCOUNTER 2024-04-24 15:12 | Inpatient (IN) | payer MEDICARE, OTHER, SELFPAY ==
[2024-04-24] VITALS (10 sets, daily range): BP systolic 128–158; BP diastolic 52–88; PULSE 83–112; RESP 13–22; TEMP 36.2–36.8; O2SAT 90–98; BMI 25.7
--- NOTE | ~2024-04-24 | XR_ITS ---
XR chest 2V Ordering provider: Tre Weaver MD History: 68 years Female with . sob . Comparison: November 24, 2023 FINDINGS: MEDIASTINUM: The cardiac silhouette is not enlarged. LUNGS: No effusions or pneumothorax. Bilateral basal prominent markings with opacification seen in th e posterior costophrenic angle. Nodule in the area is not excluded. Underlying emphysematous changes. OTHER: No free air under the diaphragm. S-shaped scoliosis. IMPRESSION: Prominent markings in the lower lobes with opacification in the posterior costophrenic angle on the r ight side. Early pneumonia cannot be excluded. Nodule in the surgical neck angle on the right side al so seen further evaluation with CT is advised Clinical correlation advised. Reviewed, dictated and finalized at location A. IMPRESSION: Prominent markings in the lower lobes with opacification in the posterior costo phrenic angle on the right side. Early pneumonia cannot be excluded. Nodule in the surgical neck angle on the right side also seen further evaluation with CT is advised Clinical correlation advised.
--- NOTE | 2024-04-24 15:13 | ECG_ITS ---
Test Date: 2024-04-24 15:19:00 Measurements Intervals [place] Rate: 96 P: 71 [place]: 158 QRS: 89 QRSD: 90 T: 60 QT: 347 QTc: 439 Interpretive Statements SINUS RHYTHM POSSIBLE LEFT ATRIAL ENLARGEMENT INCOMPLETE RIGHT BUNDLE BRANCH BLOCK ANTERIOR INFARCT, AGE INDETERMINATE BASELINE ARTIFACT- I, II, III, AVR, AVL, AVF, V1, V4-V5 ABNORMAL ECG No previous ECG available for comparison Electronically Signed On 04-24-2024 15:34:34 CDT by Bjorn Fountain D.O.
[2024-04-24 15:35] LABS: Basophils Percent Auto 0.3 % (0.2-1.2); Eosinophils Percent Auto 0.2 % (0-4.4); Hematocrit 45.9 % (37.0-47.0); Hemoglobin 14.8 g/dL (12.0-15.0); Immature Granulocyte Absolute 0.03 K/mm3 (0.00-0.031); Immature Granulocyte Percent A 0.2 % (0-0.5); Lymphocytes Absolute Auto 1.28 K/mm3 (0.9-3.2); Mean Corpuscular HGB Conc 32.2 g/dl (32-36); Mean Corpuscular Hemoglobin 30.8 pg (26-34); Mean Corpuscular Volume 95.6 fl (80-100); Mean Platelet Volume 9.6 fl (7.4-10.4); Monocytes Absolute Auto 0.4 K/mm3 (0.1-0.6); Monocytes Percent Auto 3.1 % (2.6-8.5); Neutrophils Percent Auto 86.2 % (45.5-73.1); Platelet Count Result 283 k/mm3 (150-375); Red Cell Distribution Width 13.1 % (11.5-14.5); White Blood Count 12.7 K/mm3 (4.5-10.0)
[2024-04-24 15:47] LABS: Alanine Aminotransferase 29 U/L (6-35); Albumin Level 4.3 g/dL (3.5-5.1); Alkaline Phosphatase 114 U/L (38-126); Anion Gap 8 mmol/L (4-12); Aspartate Amino Transferase 26 U/L (14-36); Bilirubin,Total 0.5 mg/dL (0.2-1.3); Blood Urea Nitrogen 9 mg/dL (7-17); Calcium 9.7 mg/dL (8.4-10.2); Carbon Dioxide 35 mmol/L (22-30); Chloride 93 mmol/L (98-107); Estimated Glomerular Filt Rate > 60; Glucose 123 mg/dL (65-110); Potassium 4.3 mmol/L (3.4-5.0); Sodium 136 mmol/L (137-145)
[2024-04-24] MEDS: SODIUM CHLORIDE 0.9% IV 1,000 ML 999 ML IV CONT (18:02)
[2024-04-24] MEDS: methylPREDNISolone SOD SUCC 125 MG VIAL IV PUSH (18:05)
[2024-04-24] MEDS: ALBUTEROL SULFATE NEB 2.5 MG/3 ML INH 5 MG INHALATION ×3 (18:06→18:07)
[2024-04-24] MEDS: IPRATROPIUM BR 0.02% INH SOLN 0.5 MG/2.5 ML VIAL INHALATION ×3 (18:06→18:07)
--- NOTE | 2024-04-24 20:15 | PM.IMHP ---
H&P: HPI History of Present Illness Date/Time: 04/24/24 20:15 Chief Complaint: sob Narrative: This is a 68-year-old female with past medical history significant for COPD/emphysema, tobacco dependence, degenerative joint disease, allergic rhinitis, hypertension, dyslipidemia. patient presents to the emergency room due to worsening shortness of breath for the last as 4-5 days has been using her inhaler with no improvement had had a cough productive of scanty sputum, denies fevers rigors or chills. Preliminary workup was significant for chest x-ray with infiltrate. Patient has been admitted for further evaluation management and treatment. XR chest 2V Ordering provider: Tre Weaver MD History: 68 years Female with . sob . Comparison: November 24, 2023 FINDINGS: MEDIASTINUM: The cardiac silhouette is not enlarged. LUNGS: No effusions or pneumothorax. Bilateral basal prominent markings with opacification seen in the posterior costophrenic angle. Nodule in the area is not excluded. Underlying emphysematous changes. OTHER: No free air under the diaphragm. S-shaped scoliosis. IMPRESSION: Prominent markings in the lower lobes with opacification in the posterior costophrenic angle on the right side. Early pneumonia cannot be excluded. Nodule in the surgical neck angle on the right side also seen further evaluation with CT is advised Clinical correlation advised. Review of Systems Review of Systems: sob, wheezing. cough PMFSH Past Medical History Medical History Allergic rhinitis Chronic obstructive pulmonary disease DDD (degenerative disc disease), cervical Depression Diastolic congestive heart failure Essential hypertension Mixed hyperlipidemia Normal colonoscopy Osteopenia Tobacco abuse Vitamin B12 deficiency Vitamin D deficiency Surgical History Surgical History History of bladder surgery History of dilatation and curettage History of knee replacement procedure of right knee Family History Family History Mother Family history of coronary artery disease Hypertension Heart attack Sibling Heart attack Sibling Cerebrovascular accident Social History Social History Social History: Her daughter Ryan is her POA Smoking packs per day: 0.5 Smoking cigarettes per day: 10.0 Years smoked: 63 Smoking pack-years: 31.50 Smoking status: Current every day smoker Second hand tobacco smoke exposure: No Additional smoking assessment comments: Patient continues to decrease the number of cigarettes per day Alcohol intake: never Substance use: never Substance use type: does not use Do You Feel Safe in your Home?: Yes Lack of Transportation: No Lack of Food: Never True Current Housing: I Have Housing Concerned About Future Housing: No Difficulty Paying Gas/Electric Bills: No Difficulty Paying for Meds: No Currently Unemployed: No Education: Master's Degree or Higher Difficulty w/ Childcare or Family Care: No Living arrangements: with family Occupation/Education: occupation 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
[2024-04-24] MEDS: AZITHROMYCIN 500 MG/NS 250 ML 500 MG/250 ML BAG 250 MG IVPB (20:26)
--- NOTE | 2024-04-24 20:43 | PC.NURSE ---
Per edp dr. Garrett pt to receive 25mg of benadryl after pt c/o of itching after starting 2nd abx. this rn used closed loop communication to confirm dose/ route/ medication/ time/ patient.
--- NOTE | 2024-04-24 22:33 | ED.SOB ---
HPI - SOB/Dyspnea General Chief Complaint: Shortness of Breath/Dyspnea Stated Complaint: trouble breathing x3d Time Seen by Provider: 04/24/24 16:59 History of Present Illness HPI Narrative: This is a 68-year-old female with a past medical history significant for COPD with oxygen dependence at home. She normally wears 2 L around the clock and has 5 L BiPAP at night. Patient states that she has been having some difficulty breathing over the last few days as well as a cough productive of yellow sputum. Subjective rhinorrhea congestion. Denies any fever, chills, rigors. No chest pain, nauseousness, vomiting. She was sent in by her primary care after visit today where she was having a COPD exacerbation requiring treatment. No recent antibiotics or steroids according to herself Related Data Home Medications Medication Instructions Recorded Confirmed guaifenesin 600 mg tablet, 600 mg PO BID 11/22/23 04/24/24 extended release 12 hr (Mucinex) losartan 100 mg tablet 100 mg PO QHS 11/22/23 04/24/24 naproxen sodium 220 mg tablet 220 mg PO BID PRN Pain 11/22/23 04/24/24 hydrochlorothiazide 25 mg tablet See Rx Instructions .Route .COMPLEX 04/24/24 04/24/24 montelukast 10 mg tablet 10 mg PO QHS 04/24/24 04/24/24 Allergies Allergy/AdvReac Type Severity Reaction Status Date / Time ciprofloxacin Allergy Mild NAUSEA Verified 04/24/24 17:06 Review of Systems Review of Systems: ROS as described above. [facility] Past Medical History Medical History Allergic rhinitis Chronic obstructive pulmonary disease DDD (degenerative disc disease), cervical Depression Diastolic congestive heart failure Essential hypertension Mixed hyperlipidemia Normal colonoscopy Osteopenia Tobacco abuse Vitamin B12 deficiency Vitamin D deficiency Surgical History Surgical History History of bladder surgery History of dilatation and curettage History of knee replacement procedure of right knee Family History Family History Mother Family history of coronary artery disease Hypertension Heart attack Sibling Heart attack Sibling Cerebrovascular accident Social History Social History Social History: Her daughter Ryan is her POA Smoking packs per day: 0.5 Smoking cigarettes per day: 10.0 Years smoked: 63 Smoking pack-years: 31.50 Smoking status: Current every day smoker Second hand tobacco smoke exposure: No Additional smoking assessment comments: Patient continues to decrease the number of cigarettes per day Alcohol intake: never Substance use: never Substance use type: does not use Do You Feel Safe in your Home?: Yes Lack of Transportation: No Lack of Food: Never True Current Housing: I Have Housing Concerned About Future Housing: No Difficulty Paying Gas/Electric Bills: No Difficulty Paying for Meds: No Currently Unemployed: No Education: Master's Degree or Higher Difficulty w/ Childcare or Family Care: No Living arrangements: with family Occupation/Education: occupation 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 Mucous membranes moist. NECK: Supple. CHEST: Diminished air entry bilaterally with wheezing and crackles. No labored respirations and converses in full sentences. HEART: [Regular rate and rhythm]. No murmur heard. [Normal peripheral pulses.] ABDOMEN: [Soft, nondistended], [nontender], [No rigidity or guarding] EXTREMITIES: Normal range of motion. [No edema.] SKIN: Warm, dry, no rash. NE
[2024-04-25] VITALS (20 sets, daily range): BP systolic 141–160; BP diastolic 61–69; PULSE 87–109; RESP 13–23; TEMP 36.5–36.9; O2SAT 90–98
[2024-04-25] MEDS: ATORVASTATIN 10 MG TABLET PO ×2 (00:47→22:21)
[2024-04-25] MEDS: amLODIPine BESYLATE 2.5 MG TABLET PO ×2 (00:47→22:21)
[2024-04-25] MEDS: MONTELUKAST SODIUM 10 MG TABLET PO ×2 (00:47→22:22)
[2024-04-25] MEDS: rOPINIRole HCL 0.25 MG TABLET PO ×2 (00:47→22:22)
[2024-04-25] MEDS: WATER FOR IRRIGATION, STERILE 1,000 ML BOTTLE 1000 ML (00:47)
[2024-04-25] MEDS: LOSARTAN POTASSIUM 100 MG TABLET PO ×2 (00:47→22:22)
[2024-04-25] MEDS: IPRATROPIUM 0.5 MG/ALBUTEROL SULFATE 2.5 MG AMPUL.NEB 3 ML INHALATION ×4 (00:56→20:23)
--- NOTE | 2024-04-25 03:05 | PC.NURSE ---
This patient, Devyn Crawford, was admitted to Room 314-02. Patient/family oriented to hospital policies and general routines including ID bracelet, bed and alarms, visiting hours, pain management, procedures, bathroom and other care routines, personal items, smoking policy, room service/diet, and visiting hours. Information on how to activate the Rapid Response Team has been discussed. Patient/Family are encouraged to report perceived risks to care and to ask questions if they do not understand what they are told or what they should do.
[2024-04-25] MEDS: methylPREDNISolone SOD SUCC 125 MG VIAL 60 MG IV PUSH ×4 (06:30→23:09)
[2024-04-25] MEDS: FLUTICASONE/UMECLIDIN/VILANTER 100-62.5-25 MCG ELLIPTA 1 PUFF INHALATION (07:43)
[2024-04-25] MEDS: guaiFENesin 12 HR 600 MG TABCR PO ×2 (08:12→22:22)
[2024-04-25] MEDS: SPIRONOLACTONE 12.5 MG TABLET PO (08:12)
[2024-04-25] MEDS: buPROPion HCL XL (24 HR) 150 MG TABCR PO (08:12)
--- NOTE | 2024-04-25 11:55 | PM.IMPN ---
Progress Note: A&P Assessment and Plan (1) Acute exacerbation of chronic obstructive pulmonary disease (COPD): Code(s): J44.1 - Chronic obstructive pulmonary disease with (acute) exacerbation Status: Acute (2) Tobacco dependence: Code(s): F17.200 - Nicotine dependence, unspecified, uncomplicated Status: Acute Plan still smoking. takes trelegy. Time Spent With Patient Time: Continue current management. She still sounds very diminished and has shortness of breath even while talking. Needs to be monitored for decompensation. Full code. Subjective Date/time seen: 04/25/24 11:55 Interval history: No major acute overnight events. Stills feels short of breath at rest and on exertion. Review of Systems Review of Systems: All systems reviewed & are unremarkable except as noted in HPI and below (Subjective) Exam Const: General: comfortable and no acute distress Eyes: Pupils: Equal, round and reactive pupils present Resp: Effort & Inspection: normal respiratory effort Other: Diminished lung sounds Cardio: Rate: regular rate Rhythm: regular rhythm GI: GI Palp: Yes Soft to palpation and No Tenderness to palpation present (GI) Extrem: General: no edema Objective Data Vital Signs Vital Signs: Vital Signs - 24 hr 04/24/24 15:22 04/24/24 17:07 04/24/24 17:15 Temperature 98.3 F 97.8 F Pulse Rate 97 87 83 Respiratory Rate 22 H 17 Blood Pressure 132/88 158/78 H Pulse Oximetry 95 97 Oxygen Delivery Nasal Cannula Nasal Cannula Oxygen Flow Rate 3 3 04/24/24 18:07 04/24/24 19:11 04/24/24 20:25 Temperature Pulse Rate 83 107 H Respiratory Rate 20 17 Blood Pressure 132/52 L Pulse Oximetry 97 90 Oxygen Delivery Nasal Cannula Oxygen Flow Rate 3 04/24/24 21:08 04/24/24 17:15 04/24/24 19:50 Temperature Pulse Rate 104 H 97 112 H Respiratory Rate 20 17 22 H Blood Pressure 128/64 151/83 H 147/68 H Pulse Oximetry 94 98 93 Oxygen Delivery Oxygen Flow Rate 04/24/24 21:36 04/24/24 23:57 04/25/24 00:57 Temperature 97.7 F 97.1 F L Pulse Rate 107 H 102 H Respiratory Rate 14 13 Blood Pressure 138/69 132/56 L Pulse Oximetry 94 92 92 Oxygen Delivery Nasal Cannula Oxygen Flow Rate 2 04/25/24 00:57 04/25/24 01:04 04/25/24 01:04 Temperature Pulse Rate 109 H 104 H 104 H Respiratory Rate 20 21 H 21 H Blood Pressure Pulse Oximetry 97 Oxygen Delivery BiPAP Oxygen Flow Rate 04/25/24 00:00 04/25/24 04:00 04/25/24 00:00 Temperature 97.7 F Pulse Rate 109 H 92 100 Respiratory Rate 22 H 13 Blood Pressure 141/61 H Pulse Oximetry 98 96 Oxygen Delivery CPAP Oxygen Flow Rate 3 04/25/24 04:00 04/25/24 07:38 04/25/24 07:41 Temperature Pulse Rate 89 87 Respiratory Rate 20 Blood Pressure Pulse Oximetry 94 Oxygen Delivery Nasal Cannula Oxygen Flow Rate 3 04/25/24 07:44 04/25/24 08:25 04/25/24 08:00 Temperature Pulse Rate 88 Respiratory Rate 20 Blood Pressure Pulse Oximetry 90 90 Oxygen Delivery Nasal Cannula Nasal Cannula Oxygen Flow Rate 2 2 Intake/Output Intake/Output: Intake & Output 04/22/24 04/23/24 04/24/24 04/25/24 23:59 23:59 23:59 23:59 Intake Total 1050 890 Balance 1050 890 Meds/Results Medications: Active Medications Generic Name Dose Route Start Last Admin Trade Name Freq PRN Reason Stop Dose Admin Albuterol/Ipratropium 3 ml 04/25/24 02:00 04/25/24 07:38 Ipratropium 0.5 Mg/Albuterol Sulfate 2.5 Mg Ampul.Neb 3 Ml INHALATION 3 ml Q6HRT JAKE Administration Amlodipine Besylate 2.5 mg 04/25/24 00:35 04/25/24 00:47 Amlodipine Besylate 2.5 Mg Tablet PO 2.5 mg QHS JAKE Administration Atorvastatin Calcium 10 mg 04/25/24 00:35 04/25/24 00:47 Atorvastatin 10 Mg Tablet PO 10 mg QHS JAKE Administration Bupropion HCl 150 mg 04/25/24 09:00 04/25/24 08:12 Bupropion Hcl Xl (24 Hr) 150 Mg Tabcr PO 150 mg QAM JAKE
[2024-04-25] MEDS: ENOXAPARIN 40 MG/0.4 ML SYRINGE SUB-Q (13:30)
[2024-04-25] MEDS: SODIUM CHLORIDE 0.9% IV 100 ML 10 ML (22:21)
[2024-04-25] MEDS: AZITHROMYCIN 500 MG/NS 250 ML 500 MG/250 ML BAG 250 MG IVPB (22:22)
[2024-04-25] MEDS: cefTRIAXone 2 GM/NS 100 ML 2 GM/100 ML BAG IVPB (22:22)
[2024-04-26] VITALS (20 sets, daily range): BP systolic 148–177; BP diastolic 65–90; PULSE 73–118; RESP 17–22; TEMP 36.1–37.3; O2SAT 90–98
[2024-04-26] MEDS: methylPREDNISolone SOD SUCC 125 MG VIAL 60 MG IV PUSH ×3 (05:41→17:48)
[2024-04-26] MEDS: traMADol HCL (*CRX) 50 MG TABLET PO ×2 (05:47→20:42)
[2024-04-26 06:21] LABS: Basophils Percent Auto 0.1 % (0.2-1.2); Hematocrit 43.9 % (37.0-47.0); Hemoglobin 14.3 g/dL (12.0-15.0); Immature Granulocyte Absolute 0.12 K/mm3 (0.00-0.031); Immature Granulocyte Percent A 0.7 % (0-0.5); Lymphocytes Absolute Auto 0.92 K/mm3 (0.9-3.2); Lymphocytes Percent Auto 5.6 % (18.3-44.2); Mean Corpuscular HGB Conc 32.6 g/dl (32-36); Mean Corpuscular Hemoglobin 31.1 pg (26-34); Mean Corpuscular Volume 95.4 fl (80-100); Mean Platelet Volume 9.7 fl (7.4-10.4); Monocytes Absolute Auto 0.4 K/mm3 (0.1-0.6); Monocytes Percent Auto 2.1 % (2.6-8.5); Neutrophils Absolute Auto 15.1 K/mm3 (1.3-6.7); Neutrophils Percent Auto 91.5 % (45.5-73.1); Platelet Count Result 312 k/mm3 (150-375); Red Cell Distribution Width 13.1 % (11.5-14.5); White Blood Count 16.5 K/mm3 (4.5-10.0)
[2024-04-26 06:31] LABS: Anion Gap 8 mmol/L (4-12); Blood Urea Nitrogen 17 mg/dL (7-17); Calcium 9.4 mg/dL (8.4-10.2); Carbon Dioxide 33 mmol/L (22-30); Chloride 95 mmol/L (98-107); Estimated CRCL calculation 64 ml/min; Estimated Glomerular Filt Rate > 60; Glucose 145 mg/dL (65-110); Magnesium 1.9 mg/dL (1.6-2.3); Potassium 3.9 mmol/L (3.4-5.0); Sodium 136 mmol/L (137-145)
[2024-04-26 07:13] LABS: Procalcitonin 0.1 ng/mL
[2024-04-26] MEDS: FLUTICASONE/UMECLIDIN/VILANTER 100-62.5-25 MCG ELLIPTA 1 PUFF INHALATION (07:57)
[2024-04-26] MEDS: IPRATROPIUM 0.5 MG/ALBUTEROL SULFATE 2.5 MG AMPUL.NEB 3 ML INHALATION ×3 (07:57→20:41)
[2024-04-26] MEDS: SPIRONOLACTONE 12.5 MG TABLET PO (08:56)
[2024-04-26] MEDS: guaiFENesin 12 HR 600 MG TABCR PO ×2 (08:57→20:42)
[2024-04-26] MEDS: ENOXAPARIN 40 MG/0.4 ML SYRINGE SUB-Q (08:57)
[2024-04-26] MEDS: FLUTICASONE PROPIONATE 0.05% NA SPR 16 GM BTL (*BKC) 1 SPRAY NASAL ×2 (08:57→17:48)
[2024-04-26] MEDS: buPROPion HCL XL (24 HR) 150 MG TABCR PO (08:57)
--- NOTE | 2024-04-26 09:47 | PC.NURSE ---
O2 sats 75% on 4L this AM. Sats still at 82% on 5L. RN placed pt on 8L highflow to reach sat of 88-90%. MD aware. Lungs are clear/diminished, pt is not in distress. VSS. Will continue to monitor and wean as appropriate.
--- NOTE | 2024-04-26 16:13 | PM.IMPN ---
Progress Note: A&P Assessment and Plan (1) Acute exacerbation of chronic obstructive pulmonary disease (COPD): Code(s): J44.1 - Chronic obstructive pulmonary disease with (acute) exacerbation Status: Acute (2) Tobacco dependence: Code(s): F17.200 - Nicotine dependence, unspecified, uncomplicated Status: Acute (3) Community acquired pneumonia: Code(s): J18.9 - Pneumonia, unspecified organism Status: Acute Plan 68-year-old female with past medical history tobacco dependence, COPD, chronic respiratory failure requiring 2 L around the clock and 5 L with BiPAP at night, DJD, allergic rhinitis, dyslipidemia, hypertension, depression. She presents to [place] ER with subjective Ria and congestion, a few days of cough productive of yellow sputum and shortness of breath especially on exertion. She had presented to her PCP after she used a nebulizer treatment at home and it did not alleviate her symptoms. Admitted on 04/24/2024 for acute COPD exacerbation, acute on chronic hypoxic respiratory failure, community-acquired bacterial pneumonia. Chest x-ray demonstrating pulmonary markings in the lower lobes suggestive of pneumonia. April 26: She is desaturating and having significant shortness of breath on exertion. White count 16.5 although that could be due to steroid use. Procalcitonin is 0.1. Continue to trend WBC. Continue scheduled nebulizers, Flonase spray, home Trelegy, Solu-Medrol 60 mg IV q.6 hours, ceftriaxone, azithromycin. Legionella and pneumococcal urinary antigens pending. Sputum culture and blood cultures pending. Full code. Lovenox 40 mg subQ q.day. saline lock IV. Regular diet. Anticipate discharge back to home. Will on medical floor. Subjective Date/time seen: 04/26/24 16:13 Interval history: No major acute overnight events. Patient has been trying to walk the halls on 3 L, her baseline is 2 L. she becomes short of breath for an extended period of time after doing that. Review of Systems Review of Systems: All systems reviewed & are unremarkable except as noted in HPI and below (Subjective) Exam Const: General: comfortable and no acute distress Eyes: Pupils: Equal, round and reactive pupils present Neck: Neck: supple Resp: Effort & Inspection: normal respiratory effort Auscultation: clear to auscultation bilaterally Cardio: Rate: regular rate Rhythm: regular rhythm GI: GI Palp: Yes Soft to palpation Extrem: General: no edema Objective Data Vital Signs Vital Signs: Vital Signs - 24 hr 04/25/24 20:23 04/25/24 20:25 04/25/24 20:34 Temperature Pulse Rate 96 92 Respiratory Rate 20 20 Blood Pressure Pulse Oximetry 91 Oxygen Delivery Nasal Cannula Oxygen Flow Rate 2 04/25/24 22:00 04/25/24 22:47 04/26/24 02:08 Temperature 98.5 F Pulse Rate 106 H 100 89 Respiratory Rate 14 23 H 20 Blood Pressure 148/69 H Pulse Oximetry 93 96 Oxygen Delivery BiPAP Oxygen Flow Rate 04/26/24 02:10 04/26/24 02:18 04/26/24 05:27 Temperature 97.8 F Pulse Rate 90 96 87 Respiratory Rate 20 20 17 Blood Pressure 152/71 H Pulse Oximetry 97 90 Oxygen Delivery BiPAP Oxygen Flow Rate 04/25/24 20:00 04/26/24 00:00 04/26/24 04:00 Temperature Pulse Rate 106 H 88 91 Respiratory Rate Blood Pressure Pulse Oximetry Oxygen Delivery Oxygen Flow Rate 04/26/24 07:59 04/26/24 07:59 04/26/24 08:07 Temperature Pulse Rate 92 98 Respiratory Rate 20 20 Blood Pressure Pulse Oximetry 95 Oxygen Delivery Nasal Cannula Oxygen Flow Rate 2 04/26/24 08:00 04/26/24 13:25 04/26/24 13:34 Temperature Pulse Rate 96 118 H 113 H Respiratory Rate 20 20 Blood Pressure Pulse Oximetry Oxygen Delivery Oxygen Flow Rate 04/26/24 14:00 Temperature 97.0 F L Pulse Rate 73 Respiratory Rate 18 Blood Pressure 148/65 H Pulse Oximetry 98 Oxygen Delivery Oxygen Flow Rate Intake/Output In
[2024-04-26] MEDS: cefTRIAXone 2 GM/NS 100 ML 2 GM/100 ML BAG IVPB (20:41)
[2024-04-26] MEDS: amLODIPine BESYLATE 2.5 MG TABLET PO (20:42)
[2024-04-26] MEDS: LOSARTAN POTASSIUM 100 MG TABLET PO (20:42)
[2024-04-26] MEDS: ATORVASTATIN 10 MG TABLET PO (20:42)
[2024-04-26] MEDS: AZITHROMYCIN 500 MG/NS 250 ML 500 MG/250 ML BAG 250 MG IVPB (20:42)
[2024-04-26] MEDS: rOPINIRole HCL 0.25 MG TABLET PO (20:42)
[2024-04-26] MEDS: MONTELUKAST SODIUM 10 MG TABLET PO (20:42)
[2024-04-27] VITALS (9 sets, daily range): BP systolic 159; BP diastolic 75; PULSE 93–108; RESP 16–20; TEMP 36.6; O2SAT 92–96
[2024-04-27] MEDS: methylPREDNISolone SOD SUCC 125 MG VIAL 60 MG IV PUSH ×2 (00:03→06:23)
[2024-04-27] MEDS: IPRATROPIUM 0.5 MG/ALBUTEROL SULFATE 2.5 MG AMPUL.NEB 3 ML INHALATION ×2 (02:29→08:20)
--- NOTE | 2024-04-27 09:17 | PM.DS ---
DS: Admitting Diagnosis Discharge Date April 27, 2024 Admitting Diagnosis Shortness of breath DS: Discharge Diagnosis Discharge Diagnosis (1) Tobacco dependence: Code(s): F17.200 - Nicotine dependence, unspecified, uncomplicated Status: Acute (2) Acute exacerbation of chronic obstructive pulmonary disease (COPD): Code(s): J44.1 - Chronic obstructive pulmonary disease with (acute) exacerbation Status: Acute (3) Community acquired pneumonia: Code(s): J18.9 - Pneumonia, unspecified organism Status: Acute DS: Summary Hospital Course Hospital Course: 68-year-old female with past medical history tobacco dependence, COPD, chronic respiratory failure requiring 2 L around the clock and 5 L with BiPAP at night, DJD, allergic rhinitis, dyslipidemia, hypertension, depression. She presents to [place] ER with subjective Ria and congestion, a few days of cough productive of yellow sputum and shortness of breath especially on exertion. She had presented to her PCP after she used a nebulizer treatment at home and it did not alleviate her symptoms. Admitted on 04/24/2024 for acute COPD exacerbation, acute on chronic hypoxic respiratory failure, community-acquired bacterial pneumonia. Chest x-ray demonstrating pulmonary markings in the lower lobes suggestive of pneumonia. April 26: She is desaturating and having significant shortness of breath on exertion. White count 16.5 although that could be due to steroid use. Procalcitonin is 0.1. Continue to trend WBC. Continue scheduled nebulizers, Flonase spray, home Trelegy, Solu-Medrol 60 mg IV q.6 hours, ceftriaxone, azithromycin. Legionella and pneumococcal urinary antigens pending. Sputum culture and blood cultures pending. April 27: Patient reports improvement in her breathing. There have been no significant events. The cultures and antigens are still pending. The patient is stable for discharge to home on 04/27/2024. 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 q.day. patient knows the warning signs to return to ER. She has an appointment on Saturday with Dr. Dillon she knows the importance of following up with that. She has also been heavily encouraged to quit smoking/tobacco. Patient understands and wants to do so on her own. She was full code. Time spent discussing smoking cessation with patient: more than 10 minutes Status at Discharge Functional status at discharge: independent ambulation Overall status at discharge: patient is back to baseline Time Spent with Patient Time attestation: Total time spent providing and/or coordinating discharge services: Time spent: Greater than 30 minutes Exam Const: General: comfortable and no acute distress Eyes: Pupils: Equal, round and reactive pupils present Neck: Neck: supple Resp: Effort & Inspection: normal respiratory effort Other: Diminished lung sounds/coarse breath sounds Cardio: Rate: regular rate Rhythm: regular rhythm GI: GI Palp: Yes Soft to palpation Extrem: General: no edema DS: Data Data Completed and Pending Labs on day of discharge: Preliminary micro results at discharge 04/25/24 17:04 Sputum Culture - Preliminary Sputum 04/24/24 18:24 Blood Culture - Preliminary Blood 04/24/24 18:25 Blood Culture - Preliminary Blood Discharge Plan Discharge Attending physician on discharge: Carline Vasquez Discharging Clinician: Carline Vasquez Patient Disposition: Home, Self-Care Activity: may shower Diet: as tolerated Discharge Instructions: Please keep scheduled appt with Dr. Dillon on Saturday. Patient Instructions: Antibiotic Form, COPD (Chronic Obstructive Pulmonary Disease) (GEN), Bacterial Pneumonia (GEN), Chronic Lung Disease and Infection Prevention (GEN) Stand Alone Forms: General Discharge Information Follow-up/Referrals: Pili Huffman MD [Primary Care Provider
[2024-04-29 19:13] LABS: Pneumococcal Antigen Urine NOT DETECTED
[2024-04-30 02:37] LABS: Legionella pneumophila Ag Ur NOT DETECTED
== END 2024-04-27 12:39 | disposition home or self-care (01) | DRG 177 ==
LOC: ANHED 17:28 → ANH3MEDSUR 21:07
PROVIDERS: Emergency Medicine; Admitting Provider Internal Medicine; Emergency Provider Student in an Organized Health Care Education/Training Program; PCP Family Medicine; Visit Provider General Practice
DX: J15.1 Pneumonia due to Pseudomonas (principal); J96.20 Acute and chronic respiratory failure, unspecified whether with hypoxia or hypercapnia; J44.1 Chronic obstructive pulmonary disease with (acute) exacerbation; J96.10 Chronic respiratory failure, unspecified whether with hypoxia or hypercapnia; I50.32 Chronic diastolic (congestive) heart failure; J44.0 Chronic obstructive pulmonary disease with (acute) lower respiratory infection; M19.90 Unspecified osteoarthritis, unspecified site; E78.5 Hyperlipidemia, unspecified; F32.A Depression, unspecified; I11.0 Hypertensive heart disease with heart failure; M85.80 Other specified disorders of bone density and structure, unspecified site; E78.2 Mixed hyperlipidemia; F17.210 Nicotine dependence, cigarettes, uncomplicated; Z96.651 Presence of right artificial knee joint
CPT/HCPCS: 36415; 71046; 80048; 80053; 83735; 84145; 85025; 87040; 87070; 87077; 87186; 87205; 87449; 87899; 93005; 94640; 94667; 94668; 96361; 96365; 96375; 99285; A9270; G0378; J0456; J0696; J1200; J1650; J2919; J7030

== ENCOUNTER 2024-06-02 09:30 | Outpatient (RCR) | payer MEDICARE, OTHER, SELFPAY ==
[2024-02-04 12:24] VITALS: PULSE 73
== END 2024-06-02 23:59 | disposition home or self-care (01) ==
LOC: ANHCPREHAB 09:30
PROVIDERS: PCP Family Medicine; Visit Provider Internal Medicine Pulmonary Disease
DX: J44.9 Chronic obstructive pulmonary disease, unspecified (principal)
CPT/HCPCS: 94625

== ENCOUNTER 2024-07-14 09:30 | Outpatient (RCR) | payer MEDICARE, OTHER, SELFPAY ==
[2024-06-04 00:05] VITALS: PULSE 73
== END 2024-09-21 07:44 | disposition home or self-care (01) ==
LOC: ANHCPREHAB 09:30
PROVIDERS: PCP Family Medicine; Visit Provider Internal Medicine Pulmonary Disease
DX: J44.9 Chronic obstructive pulmonary disease, unspecified (principal)
CPT/HCPCS: 94625

== ENCOUNTER 2024-07-24 08:21 | Outpatient (CLI) | payer MEDICARE, OTHER, SELFPAY ==
--- NOTE | 2024-07-25 11:19 | WPDSIXMINUTE ---
Six Minute Walk Procedure Procedure Performed Pulmonary Stress Test (6 min walk) Six Minute Walk Six Minute Walk: This is a 6 minute walk test. The test was performed and interpreted in accordance with the 2014 ERS/ATS task force guidelines. Of note the test was performed on the patient's home 2 L NC pulse dose oxygen. Findings: The patient's resting 2 L NC oxygen oxygen saturation measured by pulse oximetry was 99%, the heart rate was 81 bpm, and the modified Sarah dyspnea score was 0. Patient ambulated for 320 meters and oxygen saturation remained 96 to 98%. At the end of the study the heart rate was 103 bpm and the modified Sarah dyspnea score was 2. The patient did not qualify for supplemental oxygen at rest or with ambulation. Compared to prior 6 minute walk study on 03/12/2024, ambulatory distance decreased from 366 m to 320 m. Marshal saturation improved from 91% to 96%. Modified Sarah dyspnea score at the end of the study improved from 3 to 2.
== END 2024-07-24 08:22 | disposition home or self-care (01) ==
LOC: ANHPFT 08:23
PROVIDERS: PCP Family Medicine; Visit Provider Internal Medicine Pulmonary Disease
DX: J44.9 Chronic obstructive pulmonary disease, unspecified (principal)
CPT/HCPCS: 94618

== ENCOUNTER 2024-07-29 08:53 | Outpatient (CLI) | payer MEDICARE, OTHER, SELFPAY ==
[2024-07-29 09:38] LABS: Basophils Absolute Auto 0.1 K/mm3 (0.0-0.1); Basophils Percent Auto 0.7 % (0.2-1.2); Eosinophils Absolute Auto 0.4 K/mm3 (0-0.3); Hemoglobin 12.6 g/dL (12.0-15.0); Immature Granulocyte Absolute 0.02 K/mm3 (0.00-0.031); Immature Granulocyte Percent A 0.3 % (0-0.5); Lymphocytes Absolute Auto 1.79 K/mm3 (0.9-3.2); Lymphocytes Percent Auto 26.3 % (18.3-44.2); Mean Corpuscular HGB Conc 33.2 g/dl (32-36); Mean Corpuscular Hemoglobin 31.4 pg (26-34); Mean Corpuscular Volume 94.8 fl (80-100); Monocytes Absolute Auto 0.6 K/mm3 (0.1-0.6); Neutrophils Absolute Auto 3.9 K/mm3 (1.3-6.7); Neutrophils Percent Auto 57.7 % (45.5-73.1); Platelet Count Result 225 k/mm3 (150-375); Red Blood Count 4.01 M/mm3 (4.2-5.4); Red Cell Distribution Width 14.7 % (11.5-14.5); White Blood Count 6.8 K/mm3 (4.5-10.0)
[2024-07-29 09:51] LABS: Alanine Aminotransferase 28 U/L (6-35); Alkaline Phosphatase 91 U/L (38-126); Anion Gap 4 mmol/L (4-12); Aspartate Amino Transferase 28 U/L (14-36); Bilirubin,Total 0.9 mg/dL (0.2-1.3); Blood Urea Nitrogen 13 mg/dL (7-17); Calcium 9.4 mg/dL (8.4-10.2); Carbon Dioxide 34 mmol/L (22-30); Chloride 98 mmol/L (98-107); Cholesterol 180 mg/dL (0-200); Estimated Glomerular Filt Rate > 60; Glucose 95 mg/dL (65-110); HDL Direct 64 mg/dL; Potassium 4.2 mmol/L (3.4-5.0); Sodium 136 mmol/L (137-145); Triglycerides 83 mg/dL (<150)
[2024-07-29 10:02] LABS: LDL Cholesterol Direct 90 mg/dL
== END 2024-07-29 08:54 | disposition home or self-care (01) ==
LOC: ANHLAB 08:56
PROVIDERS: PCP Family Medicine; Visit Provider Family Medicine
DX: E78.2 Mixed hyperlipidemia (principal); I10 Essential (primary) hypertension; R53.83 Other fatigue
CPT/HCPCS: 36415; 80053; 80061; 84443; 85025

== ENCOUNTER 2024-08-17 14:40 | Outpatient (CLI) | payer MEDICARE, OTHER, SELFPAY ==
--- NOTE | ~2024-08-17 | XR_ITS ---
CHEST RADIOGRAPH, PA AND LATERAL CLINICAL HISTORY: J44.1 - INCREASED SOB, HX COPD, ASTHMA . COMPARISON: 04/24/2024 TECHNIQUE: PA and lateral views of the chest. FINDINGS The cardiomediastinal silhouette is unremarkable. Coarse interstitial lung markings are redemonstrated, likely chronic. Moderate kyphosis is present. Remaining visualized osseous structures and soft tissues are otherwise unremarkable. IMPRESSION: Coarse interstitial lung markings, without focal infiltrate or effusion. Reviewed, dictated and finalized at location A. TER SIGN MAINTENANCE
[2024-08-17 16:51] LABS: Influenza A QL RT-PCR Negative (Negative); Influenza B QL RT-PCR Negative (Negative); RSV RNA, RT-PCR Negative (Negative); SARS-CoV-2 RNA PCR Negative (Negative)
== END 2024-08-17 14:41 | disposition home or self-care (01) ==
LOC: ANHIMG 14:45
PROVIDERS: PCP Family Medicine; Visit Provider Internal Medicine Pulmonary Disease
DX: J44.1 Chronic obstructive pulmonary disease with (acute) exacerbation (principal); Z20.822 Contact with and (suspected) exposure to COVID-19
CPT/HCPCS: 71046; 87637

== ENCOUNTER 2024-11-23 13:12 | Outpatient (CLI) | payer MEDICARE, OTHER, SELFPAY ==
--- NOTE | ~2024-11-23 | CT_ITS ---
CT Scan of the Chest without Contrast: Clinical Indication: Lung cancer screening, nicotine dependence Technique: Contiguous sections were acquired throughout the chest without intravenous contrast. Dose reduction technique was used on this scan by utilizing automated exposure control and iterative recon struction technique. The dose-length product (DLP) was 73.47 mGy-cm. COMPARISON: 11/22/2023 Findings: There is no evidence of any significant mediastinal, hilar or axillary lymphadenopathy. There are ext ensive atherosclerotic calcifications of the aorta and coronary arteries. There is no evidence of pleural or pericardial effusion. Moderate emphysema present. There is scarring at the lingula and right middle lobe. Images through the upper abdomen reveal probably tuberculosis. There is moderate fat-containing umbil ical hernia in the midline at the upper abdomen.. Impression: Lung RADS 2: Benign appearance. 12 month follow-up screening CT advised. Reviewed, dictated and finalized at [facility]. ER'S EDUCATION INSTRUCTOR Impression: Lung RADS 2: Benign appearance. 12 month follow-up screening CT advised.
--- NOTE | ~2024-11-23 | XR_ITS ---
EXAMINATION: XR cervical spine 4-5V DATE: 11/23/2024 13:32 INDICATION: Neck pain. TECHNIQUE: 4 views of cervical spine were obtained. COMPARISON: Cervical spine radiographs 03/09/2011 FINDINGS: There is 11 degrees levoscoliosis of cervicothoracic spine. Vertebral body heights are norm al. There is severely decreased disc height at C5-C6 and C6-C7. There is multilevel alum-lf-cnhhqqde facet joint osteoarthritis. No central canal stenosis or prevertebral soft tissue swelling. IMPRESSION: 1. Severe cervical spondylosis. 2. Cervicothoracic levoscoliosis. Reviewed, dictated and finalized at location A. [facility] [employer]
--- OUTSIDE RECORDS SUMMARY | 2024-11-23 15:03 | XMS_ITS | Clinical Summary ---
Author Organization 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 Gender Identity Not on file Sexual Orientation Not on file Plan of Treatment Health Maintenance Due Date Last Done Comments Colorectal Cancer Screening Colonoscopy (10 Years) 1953 Hepatitis C 1971 DTaP, Tdap and Td Vaccines ( 1 - Tdap) 1972 Mammogram Screening 1993 Zoster Vaccines (1 of 2) 2003 Dexa Scan (General) 2018 Pneumococcal Vaccine: 65+ Years (1 of 1 - PCV) 2018 COVID-19 Vaccine (3 - 2023-2 5 season) 2024 11/29/2020, 10/31/2020 Influenza Adult (#1) 2024 06/07/2020 RSV Immunization or 60+ Years (1 - 1-dose 75+ series) 2028 Meningococcal B Vaccine Aged Out No l onger eligible based on patient's age to complete this topic Meningococcal Vaccine Aged Out No salma dinora eligible based on patient's age to complete this topic RSV Immunizations Under 20 Months Aged Out No longer eligible b ased on patient's age to complete this topic
--- OUTSIDE RECORDS SUMMARY | 2024-11-23 15:03 | XMS_ITS | Encounter Summary ---
Author Organization [facility] Healthcare Address [address] [place] [address] Care Team Providers Care Medical Records Manager Name Role Phone Pili Huffman MD Primary Care Provider [phone] Encounter Details Date Type Department Care Team (Late st Contact Info) Description 11/22/2023 Orders Only [facility] Health Information Management [address] [place] [id number] Scanning, Provider Social History Tobacco Use Types Packs/Day Years Used Date Smoking Tobacco: Every Day Cigarettes 1 30 Smokeless Tobacco: Never Alcohol Use Standard Drinks/Week Comments Never 0 (1 standard drink = 0.6 oz pur e alcohol) AUDIT-C Answer Date Recorded Q1: How often do you have a drink containing alc ohol? 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 Not on file Not on file documented as of this encounter Plan of Treatment Not on file documented as of this encounter Procedures Procedure Name Priority Date/Time Associated Diagnosis Comments SCAN - RADIOLOGY/IMAGING 11/22/2023 documented in this encounter Results * SCAN - RADIOLOGY/IMAGING (11/22/2023) Anatomical Region Laterality Modality Other us Provider Scanning Final Result documented in this encounter Visit Diagnoses Not on filedocumented in this encounter Care Teams Medical Records Manager Relationship Specialty Start Date End Date Pili Huffman MD PCP - General Family Medicine 04/20/20 documented as of this encounter
--- OUTSIDE RECORDS SUMMARY | 2024-11-23 15:03 | XMS_ITS | Clinical Summary ---
Author Organization [facility] [place] Address [address] [place] [address] Care Team Providers Care Rheostat Assembler Name Role Phone Pili Huffman MD Primary Care Provider [phone] Allergies No known active allergies Medications amLODIPine (NORVASC) 2.5 mg tablet 0 Active atorvastatin (LIPITOR) 10 mg tablet TK 1 T PO QD 0 Active cefproziL (CEFZIL) 250 mg tablet TK 1 T PO BID FOR 10 DAYS 0 Active Advair Diskus 500-50 mcg/dose diskus inhaler INL 1 PUFF PO Q 12 H 0 Active hydroCHLOROthia zide (HYDRODIURIL) 25 mg tablet Take 1 tablet (25 mg total) by mouth daily 0 Active losartan (COZAAR) 100 mg tablet TK 1 T PO QD 0 Active montelukast (SINGULAIR) 10 mg tablet TK 1 T PO QD 0 Active potassium chloride ER 10 mEq CR capsule Take 1 tablet/capsule (10 mEq total) by mouth daily 0 Active predniSONE (DELTASONE) 10 mg tablet 0 Active albuterol HFA (PROVENTIL HFA,VENTOLIN HFA,PROAIR HFA) 90 mcg/actuation inhaler INHALE 1 PUFF EVERY 4 HOURS NEEDED SHORTNESS OF BREATH OR WHEEZING 4 Active buPROPion XL (WELLBUTRIN XL) 150 mg 24 hr tablet Take 1 tablet (150 mg total) by mouth every morning 4 Active fluticasone propionate (FLONASE) 50 mcg/actuation nasal spray SHAKE LIQUID AND USE 1 SPRAY IN EACH NOSTRIL EVERY 12 HOURS 4 Active Trelegy Ellipta 100-62.5-25 mcg inhaler 4 Active rOPINIRole (REQUIP) 0.25 mg tablet Take 1 tablet (0.25 mg total) by mouth nightly at bedtime. 4 Active spironolactone (ALDACTONE) 25 mg tablet Take 0.5 tablets (12.5 mg total) by mouth daily 45 tablet 3 4 Active Active Problems Problem Noted Date Diagnosed Date Diastolic congestive heart failure (CMS/HCC) Surgical History Surgery Date Site/Laterality Comments JOINT REPLACEMENT KNEE SURGERY Medical History Medical History Date Comments Hypercholesteremia Hypertension Family History Medical History Relation Name Comments No Known Problems Father Heart disease Mother Relation Name Status Comments Father Mother Social History Tobacco Use Types Packs/Day Years Used Date Smoking Tobacco: Some Days Cigarettes 1 30 Smokeless Tobacco: Never Alcohol Use Standard Drinks/Week Comments Never 0 (1 standard drink = 0.6 oz pur e alcohol) AUDIT-C Answer Date Recorded Q1: How often do you have a drink containing alc ohol? 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 on file Not on file Obstetrics History Last Filed Vital Signs Vital Sign Reading Time Taken Comments Blood Pressure 138/62 01/22/2024 10:36 AM CDT Pulse 96 01/22/2024 10:36 AM CDT Temperature - - Respiratory Rate - - Oxygen Saturation 98% 01/22/2024 10:36 AM CDT Inhaled Oxygen Concentration - - Weight 69.4 kg (153 lb) 01/22/2024 10:36 AM CDT Height 162.6 cm (5' 4 ) 01/22/2024 10:36 AM CDT Body Mass Index 26.26 01/22/2024 10:36 AM CDT Plan of Treatment Health Maintenance Due Date Last Done Comments Breast Cancer Screening-Mammogram 1955 Colon Cancer Screening-Colonoscopy 1953 Depression Screening 1953 Fall Risk Assessment 1953 Hepatitis C Screening 1953 Osteoporosis Screening-Bone Density Scan 1953 DTaP/Tdap/Td Vaccine (1 - Tdap) 1964 Hepatitis B Screening 1971 Pneumococcal vaccine 65+ (1 of 2 - PCV) 1972 Lung Cancer Screening 2003 Zoster Vaccine (1 of 2) 2003 Well Visit 65+ 2018 Covid-19 Vaccine (3 - 2023-2 5 season) 2024 11/29/2020, 10/31/2020 Influenza Vaccine (#1) 2024 9, 06/12/2018, 10/06/2015, Additional history exists Insurance MEDICARE [facility] Address: [facility] [address] [place] [address] [facility] AM[place] [id number] [employer] Care Teams Rheostat Assembler Relationship Specialty Start Date End Date Pili Huffman MD PCP - General Family Medicine 04/20/20
--- OUTSIDE RECORDS SUMMARY | 2024-11-23 15:03 | XMS_ITS | Encounter Summary ---
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
--- OUTSIDE RECORDS SUMMARY | 2024-11-23 15:03 | XMS_ITS | Encounter Summary ---
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 Not on file Not on file documented as of this encounter Plan of Treatment Not on file documented as of this encounter Procedures Procedure Name Priority Date/Time Associated Diagnosis Comments SCAN - RADIOLOGY/IMAGING 11/24/2023 documented in this encounter Results * SCAN - RADIOLOGY/IMAGING (11/24/2023) Anatomical Region Laterality Modality Other us Provider Scanning Final Result documented in this encounter Visit Diagnoses Not on filedocumented in this encounter Care Teams Reverser Relationship Specialty Start Date End Date Pili Huffman MD PCP - General Family Medicine 04/20/20 documented as of this encounter
--- OUTSIDE RECORDS SUMMARY | 2024-11-23 15:03 | XMS_ITS | Referral Summary ---
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
== END 2024-11-23 13:13 | disposition home or self-care (01) ==
LOC: ANHIMG 13:13
PROVIDERS: PCP Family Medicine; Visit Provider Internal Medicine Pulmonary Disease
DX: Z12.2 Encounter for screening for malignant neoplasm of respiratory organs (principal); Z87.891 Personal history of nicotine dependence; M47.892 Other spondylosis, cervical region
CPT/HCPCS: 71271; 72050

== ENCOUNTER 2024-12-05 07:42 | Outpatient (CLI) | payer MEDICARE, OTHER, SELFPAY ==
--- NOTE | ~2024-12-05 | MR_ITS ---
EXAMINATION: MR cervical spine wo con DATE: 12/05/2024 08:23 INDICATION: Cervical radiculopathy. Neck pain. TECHNIQUE: Magnetic resonance imaging (MRI) of the cervical spine was performed without intravenous c ontrast. COMPARISON: Cervical spine MRI 03/16/2011 FINDINGS: There is 10 degrees levoscoliosis of cervicothoracic spine. There is a chronic compression fracture of C7 with less than 1/5 loss of height. There is severely decreased disc height at C5-C6 an d C6-C7. The spinal cord signal intensity is normal. There is a lipoma in the left neck posterior tri angle. The following disc levels are specifically discussed: C2-C3: There is a central extrusion. There is mild left uncovertebral joint osteoarthritis. There is severe bilateral facet joint osteoarthritis. There is mild left neural foraminal stenosis. There is m ild central canal stenosis. C3-C4: There is a central protrusion. There is mild bilateral uncovertebral joint osteoarthritis. The re is severe right and mild left facet joint osteoarthritis. There is mild right neural foraminal maribel nosis. There is no central canal stenosis. C4-C5: There is a central protrusion. There is no uncovertebral joint osteoarthritis. There is mild b ilateral facet joint osteoarthritis. There is no neural foraminal stenosis. There is mild central can al stenosis. C5-C6: The disc is bulging. There is severe bilateral uncovertebral joint osteoarthritis. There is mi ld bilateral facet joint osteoarthritis. There is moderate right and mild left neural foraminal steno sis. There is mild central canal stenosis. C6-C7: The disc is bulging. There is severe bilateral uncovertebral joint osteoarthritis. There is se traci right and mild left facet joint osteoarthritis. There is moderate right and mild left neural for aminal stenosis. There is mild central canal stenosis. C7-T1: The disc does not extend beyond the endplate margin. There is no uncovertebral joint osteoarth ritis. There is mild right and severe left facet joint osteoarthritis. There is mild left neural fora abby stenosis. There is no central canal stenosis. IMPRESSION: 1. Severe cervical spondylosis, worsened from 03/16/2011. Reviewed, dictated and finalized at location A. RIENCE SPECIALIST
== END 2024-12-05 07:43 | disposition home or self-care (01) ==
LOC: MICIMG 07:43
PROVIDERS: PCP Family Medicine; Visit Provider Family Medicine
DX: M47.22 Other spondylosis with radiculopathy, cervical region (principal)
CPT/HCPCS: 72141

== ENCOUNTER 2024-12-11 07:08 | Outpatient (CLI) | payer MEDICARE, OTHER, SELFPAY ==
--- NOTE | ~2024-12-11 | CT_ITS ---
CT of the Abdomen and Pelvis: Indication: Abnormal findings on diagnostic imaging Technique: 2.5 mm axial scans were obtained through the abdomen and pelvis following intravenous adm inistration of 100 cc of Omnipaque 350. Dose reduction technique was used on this scan by utilizing a utomated exposure control and iterative reconstruction technique. The dose-length product (DLP) was 3 93.35 mGy-cm. Findings: Scans through the lung bases are unremarkable. Left hepatic lobe cysts are present. The spleen, pancreas, gallbladder, right adrenal gland, and kidn eys are within normal limits. Probable 11 mm left adrenal nodule, indeterminate based on this exam. T here are extensive atherosclerotic calcifications of the aorta and iliac vessels. No lymphadenopathy . No bowel obstruction or bowel wall thickening. There is no evidence to suggest acute appendicitis. Images through the pelvis were performed. Urinary bladder unremarkable. Small calcified uterine fibro ids are present. No ascites. There is advanced degenerative spondylosis at L1-L2. Impression: No acute abnormality. Extensive atherosclerotic calcification. 11 mm indeterminate left adrenal nodule. Consider follow-up MR to assess for adenoma. Reviewed, dictated and finalized at [facility]. Impression: No acute abnormality. Extensive atherosclerotic calcification. 11 mm indeterminate left adrenal nodule. Consider follow-up MR to assess for ad enoma.
--- OUTSIDE RECORDS SUMMARY | 2024-12-11 07:10 | XMS_ITS | Clinical Summary ---
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
--- OUTSIDE RECORDS SUMMARY | 2024-12-11 07:10 | XMS_ITS | Encounter Summary ---
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
--- OUTSIDE RECORDS SUMMARY | 2024-12-11 07:10 | XMS_ITS | Referral Summary ---
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
--- OUTSIDE RECORDS SUMMARY | 2024-12-11 07:10 | XMS_ITS | Clinical Summary ---
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
[2024-12-11 07:23] LABS: Estimated Glomerular Filt Rate 55
== END 2024-12-11 07:09 | disposition home or self-care (01) ==
LOC: ANHIMG 07:08
PROVIDERS: PCP Family Medicine; Visit Provider Family Medicine
DX: R93.89 Abnormal findings on diagnostic imaging of other specified body structures (principal); I73.9 Peripheral vascular disease, unspecified
CPT/HCPCS: 74177; Q9967

== ENCOUNTER 2024-12-17 11:55 | Outpatient (CLI) | payer MEDICARE, OTHER, SELFPAY ==
--- OUTSIDE RECORDS SUMMARY | 2024-12-17 12:42 | XMS_ITS | Clinical Summary ---
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
--- OUTSIDE RECORDS SUMMARY | 2024-12-17 12:42 | XMS_ITS | Encounter Summary ---
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
--- OUTSIDE RECORDS SUMMARY | 2024-12-17 12:42 | XMS_ITS | Referral Summary ---
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
--- OUTSIDE RECORDS SUMMARY | 2024-12-17 12:42 | XMS_ITS | Clinical Summary ---
Author Organization [facility] Address [address] [place] [address] Care Team Providers Care Blow Molding Machine Operator Name Role Phone Unavailable Primary Care Provider Unavailabl e Immunizations Name Administration Dates Next Due MODERNA COVID-19 (12+) MRNA, LNP-S, PF, 100 MCG/ 0.5 ML DOSE 11/29/2020,10/31/2020 Social History Tobacco Use Types Packs/Day Years Used Date Smoking Tobacco: Never Assessed Comments Unknown Sex and Gender Information Value Date Recorded Sex Assigned at Not on file Legal Sex Female 11:52 AM RECEIVING WEIGHER Gender Identity Not on file Sexual Orientation [...]
[2024-12-17 13:02] LABS: Basophils Percent Auto 0.4 % (0.2-1.2); Eosinophils Absolute Auto 0.2 K/mm3 (0-0.3); Eosinophils Percent Auto 2.7 % (0-4.4); Hematocrit 42.1 % (37.0-47.0); Hemoglobin 13.8 g/dL (12.0-15.0); Immature Granulocyte Absolute 0.01 K/mm3 (0.00-0.031); Immature Granulocyte Percent A 0.2 % (0-0.5); Lymphocytes Absolute Auto 1.16 K/mm3 (0.9-3.2); Mean Corpuscular HGB Conc 32.8 g/dl (32-36); Mean Corpuscular Hemoglobin 30.3 pg (26-34); Mean Corpuscular Volume 92.3 fl (80-100); Mean Platelet Volume 10.5 fl (7.4-10.4); Monocytes Absolute Auto 0.5 K/mm3 (0.1-0.6); Monocytes Percent Auto 8.7 % (2.6-8.5); Neutrophils Absolute Auto 3.7 K/mm3 (1.3-6.7); Platelet Count Result 176 k/mm3 (150-375); Red Blood Count 4.56 M/mm3 (4.2-5.4); Red Cell Distribution Width 14.6 % (11.5-14.5); White Blood Count 5.5 K/mm3 (4.5-10.0)
[2024-12-17 13:20] LABS: Alanine Aminotransferase 26 U/L (6-35); Albumin Level 3.9 g/dL (3.5-5.1); Alkaline Phosphatase 82 U/L (38-126); Anion Gap 8 mmol/L (4-12); Aspartate Amino Transferase 31 U/L (14-36); Bilirubin,Total 0.7 mg/dL (0.2-1.3); Blood Urea Nitrogen 6 mg/dL (7-17); Calcium 9.4 mg/dL (8.4-10.2); Carbon Dioxide 32 mmol/L (22-30); Chloride 94 mmol/L (98-107); Cholesterol 142 mg/dL (0-200); Estimated Glomerular Filt Rate > 60; Glucose 91 mg/dL (65-110); HDL Direct 50 mg/dL; LDL Cholesterol Direct 62 mg/dL; Potassium 4.4 mmol/L (3.4-5.0); Sodium 134 mmol/L (137-145); Triglycerides 89 mg/dL (<150)
[2024-12-17 13:46] LABS: Vitamin D 25 Hydroxy 63.8 ng/mL
[2024-12-17 15:42] LABS: Hemoglobin A1C 5.5 % (<5.7)
[2024-12-17 16:12] LABS: Erythrocyte Sedimentation Rate 20 mm/hr (0-20)
== END 2024-12-17 11:56 | disposition home or self-care (01) ==
LOC: ANHLAB 11:58
PROVIDERS: PCP Family Medicine; Visit Provider Family Medicine
DX: E78.2 Mixed hyperlipidemia (principal); R21 Rash and other nonspecific skin eruption; R53.83 Other fatigue; Z13.1 Encounter for screening for diabetes mellitus; E55.9 Vitamin D deficiency, unspecified; I10 Essential (primary) hypertension
CPT/HCPCS: 36415; 80053; 80061; 82306; 83036; 85025; 85652

== ENCOUNTER 2025-02-04 10:03 | Outpatient (CLI) | payer MEDICARE, OTHER, SELFPAY ==
--- NOTE | ~2025-02-04 | MM_ITS ---
EXAMINATION: MM screening aurea BI w rayshawn HISTORY: Screening TECHNIQUE: Craniocaudal and mediolateral oblique 3-D tomosynthesis images were obtained and synthetic 2-D images were generated. CAD analysis was submitted and interpreted. COMPARISON: Comparison to multiple prior studies sequentially, with oldest reviewed study dated 11/2016. BREAST PARENCHYMAL COMPOSITION: Not dense: There are scattered areas of fibroglandular density. FINDINGS: There is no evidence of suspicious mass, calcification, or architectural distortion to sugg est malignancy in either breast. There has been no suspicious interval change. IMPRESSION: 1. No mammographic evidence of malignancy. 2. Recommend routine screening mammography in one year. BI-RADS Category 1: Negative Reviewed, dictated and finalized at location A.
--- OUTSIDE RECORDS SUMMARY | 2025-02-04 10:18 | XMS_ITS | Clinical Summary ---
Author Organization 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
--- OUTSIDE RECORDS SUMMARY | 2025-02-04 10:18 | XMS_ITS | Clinical Summary ---
Author Organization [facility] Address [address] [place] [address] Care Team Providers Care Molecular Pathologist Name Role Phone Unavailable Primary Care Provider Unavailabl e Immunizations Immunization Administration Dates Next Due MODERNA COVID-19 (12+) MRNA, LNP-S, PF, 100 MCG/ 0.5 ML DOSE 11/29/2020,10/31/2020 Social History Tobacco Use Types Packs/Day Years Used Date Smoking Tobacco: Never Assessed Comments Unknown Sex and Gender Information Value Date Recorded Sex Assigned at Not on file Legal Sex Female 11:52 AM ALTERATION SPECIALIST Gender Identity Not on file Sexual Orientation Not on file Plan of Treatment Health Maintenance Due Date Last Done Comments Colorectal Cancer Screening Colonoscopy (10 Years) 1953 Hepatitis C 1971 DTaP, Tdap and Td Vaccines ( 1 - Tdap) 1972 Mammogram Screening 1993 Pneumococcal Vaccine: 50+ Years (1 of 1 - PCV) 2003 Zoster Vaccines (1 of 2) 2003 Dexa Scan (General) 2018 COVID-19 Vaccine (3 - 2023-2 5 season) 2024 11/29/2020, 10/31/2020 RSV Immunization or 60+ Years (1 - [...]
--- OUTSIDE RECORDS SUMMARY | 2025-02-04 10:18 | XMS_ITS | Referral Summary ---
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
== END 2025-02-04 10:04 | disposition home or self-care (01) ==
PROVIDERS: PCP Family Medicine; Visit Provider Family Medicine
DX: Z12.31 Encounter for screening mammogram for malignant neoplasm of breast (principal)
CPT/HCPCS: 77063; 77067

== ENCOUNTER 2025-07-06 10:20 | Outpatient (CLI) | payer MEDICARE, OTHER, SELFPAY ==
--- NOTE | ~2025-07-06 | MR_ITS ---
EXAMINATION: MR abdomen wo/w con DATE: 07/06/2025 11:25 INDICATION: Other specified disorders of adrenal gland. TECHNIQUE: Magnetic resonance imaging (MRI) of the abdomen was performed without and with 14 mL MultiHance intravenous contrast. COMPARISON: CT abdomen and pelvis 12/11/2024, chest CT 11/23/2024 FINDINGS: There are cysts in the liver measuring up to 12 mm. The gallbladder, spleen, pancreas, and right adrenal gland are normal. There is an 11 mm mass in left adrenal gland containing microscopic fat, consistent with an adenoma. There are cysts in the kidneys measuring up to 5 mm in the right. There are no dilated loops of bowel. There are no pathologically enlarged lymph nodes. There is no free intraperitoneal fluid. IMPRESSION: 1. Stable 11 mm left adrenal adenoma. Reviewed, dictated and finalized at location E.
== END 2025-07-06 10:21 | disposition home or self-care (01) ==
LOC: MICIMG 10:21
PROVIDERS: PCP Student in an Organized Health Care Education/Training Program; Visit Provider Student in an Organized Health Care Education/Training Program
DX: E27.8 Other specified disorders of adrenal gland (principal); D35.02 Benign neoplasm of left adrenal gland
CPT/HCPCS: 74183; A9577